=== PATIENT | male | born 1955 | race Caucasian/White ===

== ENCOUNTER → 2018-06-09 07:03 | Outpatient (CLI) | payer BC, SELFPAY ==
[2018-06-09 11:20] LABS: ALB/GLOB Ratio 1.1 RATIO (0.9-2.4); AST(SGOT) 16 U/L (15-37); Alanine Aminotransfer ALT/SGPT 23 U/L (16-61); Albumin, Serum 3.8 g/dL (3.2-5.0); Alkaline Phosphatase 51 U/L (45-117); Anion Gap 7 (5-15); BUN 16 mg/dL (7-18); BUN/Creat Ratio 16.7 RATIO (10-20); Calcium,Total 8.5 mg/dL (8.5-10.1); Chloride 106 mmol/L (98-107); Cholesterol 140 mg/dL (200); Creatinine, Serum 0.96 mg/dL (0.70-1.30); EST Glomerular Filtration Rate 84 mL/min (>60); Est Glom Filt Rate - Afr Amer 102 mL/min (>60); Globulin 3.4 g/dL (2.2-4.2); Glucose 98 mg/dL (74-106); High Density Lipoprotein 66 mg/dL; Potassium 4.3 mmol/L (3.5-5.1); Protein, Total 7.2 g/dL (6.4-8.2); Sodium Level 140 mmol/L (136-145); T4 Free Direct 0.99 ng/dL (0.76-1.46); Thyroid Stim Hormone (TSH) 4.82 uIU/mL (0.358-3.74); Triglycerides 59 mg/dL; Very Low Density Lipoprotein 12 mg/dL (5-40)
[2018-06-09 12:18] LABS: Absolute Lymphocyte Count 2.36 X10^3/ul (0.83-4.51); Absolute Neutrophil Count 1.8 X10^3/uL (2.0-7.7); Basophil# 0.07 X10^3/uL; Basophil% 1.4 % (0-1); Eosinophil# 0.42 X10^3/uL; Eosinophils% 8.2 % (0-5); Hemoglobin 13.6 g/dl (13.0-16.5); Lymphocyte # 2.36 X10^3/ul (4.0); Mean Corp Hgb Conc 33.2 g/gl (32-36); Mean Corpuscular Hgb 30.7 pg (27.0-32.0); Mean Corpuscular Volume 92.6 fL (80-94); Mean Platelet Vol. 10.6 fl (6.2-12.0); Monocyte% 9.7 % (0-10); Neutrophil # 1.77 X10^3/uL (2.7-7.7); Neutrophil % 34.5 % (47-70); Platelet Count 243 K/mm3 (150-450); RBC Distribution Width CV 12.9 % (11.6-14.6); RBC Distribution Width SD 42.7 fl (35.1-43.9); Red Blood Count 4.43 M/mm3 (4.6-6.2); White Blood Count 5.1 K/mm3 (4.4-11.0)
[2018-06-09 12:25] LABS: POSITIVE COUNT NO; POSITIVE DIFFERENTIAL NO; POSITIVE MORPHOLOGY NO
== END ==
PROVIDERS: Family Provider Family Medicine; PCP Family Medicine; Referring Provider Family Medicine; Visit Provider Family Medicine
DX: Z00.00 Encounter for general adult medical examination without abnormal findings (principal); F41.8 Other specified anxiety disorders; Z12.5 Encounter for screening for malignant neoplasm of prostate
CPT/HCPCS: 36415; 80053; 80061; 84153; 84439; 84443; 85025; G0103

== ENCOUNTER → 2018-12-05 14:26 | Outpatient (CLI) | payer BC, SELFPAY ==
[2018-12-05 14:17] VITALS: BMI 28.0
--- NOTE | 2018-12-05 14:31 | RAD_ITS ---
STUDY: X-RAY - UNILATERAL RIBS ( LEFT ) REASON FOR EXAM: Male, 63 years old. Left lateral rib pain following a fall TECHNIQUE: 3 view(s) of the ribs. COMPARISON: None. FINDINGS: There is nondisplaced fracture along the anterior lateral aspect of the left ninth rib. The visualized lung is clear and expanded. RAD/Ribs Unil 2V No CXR IMPRESSION: Nondisplaced fracture along the anterior lateral aspect of the left ninth rib. Electronically Signed: Paco Guo, at 14:53 EDT , Service support ,
== END ==
PROVIDERS: Family Provider Family Medicine; PCP Family Medicine; Referring Provider Physician Assistant Surgical; Visit Provider Physician Assistant Surgical
DX: S20.212A Contusion of left front wall of thorax, initial encounter (principal)
CPT/HCPCS: 71100

== ENCOUNTER → 2019-06-19 07:42 | Outpatient (CLI) | payer BC, SELFPAY ==
[2019-02-03 13:18] VITALS: BMI 28.0
--- NOTE | 2019-06-19 07:54 | EKG12_ITS ---
Test Reason : PREOP Blood Pressure : / mmHG Vent. Rate : 054 BPM Atrial Rate : 054 BPM P-R Int : 176 ms QRS Dur : 092 ms QT Int : 406 ms P-R-T Axes : 057 030 033 degrees QTc Int : 385 ms Sinus bradycardia Otherwise normal ECG Confirmed by ANNIE RUIZ, HILDA ([id number]), rewrite editor [place] ([id number]) on 06/22/2019 9:41:49 AM Referred By: Higinio Mccann Confirmed By:HILDA VALENCIA MD
[2019-06-19 08:11] LABS: Hematocrit 41.9 % (40-54); Hemoglobin 13.8 g/dL (13.0-16.5); Mean Corp Hgb Conc 32.9 g/dL (32-36); Mean Corpuscular Hgb 30.8 pg (27.0-32.0); Mean Corpuscular Volume 93.5 fL (80-94); Mean Platelet Vol. 10.3 fl (6.2-12.0); Platelet Count 228 K/mm3 (150-450); RBC Distribution Width CV 13.3 % (11.6-14.6); RBC Distribution Width SD 45.8 fl (35.1-43.9); Red Blood Count 4.48 M/mm3 (4.6-6.2); White Blood Count 5.6 K/mm3 (4.4-11.0)
[2019-06-19 08:39] LABS: Anion Gap 5 (5-15); BUN 21 mg/dL (7-18); BUN/Creat Ratio 21.8 RATIO (10-20); Calcium,Total 9.2 mg/dL (8.5-10.1); Chloride 109 mmol/L (98-107); Creatinine, Serum 0.96 mg/dL (0.70-1.30); EST Glomerular Filtration Rate 83 mL/min (>60); Est Glom Filt Rate - Afr Amer 101 mL/min (>60); Glucose 86 mg/dL (74-106); Potassium 4.6 mmol/L (3.5-5.1); Sodium Level 142 mmol/L (136-145)
[2019-06-19 11:11] LABS: T4 Free Direct 0.91 ng/dL (0.76-1.46); Thyroid Stim Hormone (TSH) 3.31 uIU/mL (0.358-3.74)
== END ==
PROVIDERS: Family Provider Family Medicine; PCP Family Medicine; Referring Provider Physician Assistant; Visit Provider Physician Assistant
DX: Z01.818 Encounter for other preprocedural examination (principal); Z01.810 Encounter for preprocedural cardiovascular examination; R79.89 Other specified abnormal findings of blood chemistry; F41.8 Other specified anxiety disorders
CPT/HCPCS: 36415; 80048; 84439; 84443; 85027; 93005

== ENCOUNTER → 2019-08-18 15:04 | Outpatient (CLI) | payer BC, SELFPAY ==
[2019-02-03 13:18] VITALS: BMI 28.0
== END ==
PROVIDERS: Family Provider Family Medicine; PCP Family Medicine; Referring Provider Otolaryngology Otolaryngology/Facial Plastic Surgery; Visit Provider Otolaryngology Otolaryngology/Facial Plastic Surgery
DX: J32.9 Chronic sinusitis, unspecified (principal)
CPT/HCPCS: 87070; 87077; 87186; 87205

== ENCOUNTER → 2019-12-22 13:06 | Outpatient (CLI) | payer MEDICARE, OTHER, SELFPAY ==
[2019-02-03 13:18] VITALS: BMI 28.0
--- NOTE | 2019-12-22 13:18 | MRI_ITS ---
STUDY: MRI LEFT SHOULDER REASON FOR EXAM: Male, 64 years old. Impingement syndrome left shoulder, and quot;clicking/catching and quot; left shoulder, hx prior surgery bone spur removal TECHNIQUE: Standardized fat and water weighted pulse sequences were obtained in all 3 orthogonal planes. COMPARISON: None. FINDINGS: Mild/moderate supraspinatus tendinosis. Mild infraspinatus tendinosis. Calcific peritendinitis at the supraspinatus insertion (sagittal images 15 through 18 series 6). Normal teres minor tendon. Mild subscapularis tendinosis with calcific peritendinitis (axial image 15 series). No muscle. Mild intracapsular biceps tendinosis. Biceps labral anchor intact. Lateral degeneration with tearing. Capsular ligaments intact. Normal rotator cuff interval. Moderate/severe acromioclavicular joint arthrosis with postsurgical change. Persistent narrowing of the acromiohumeral interval. No acute fracture. No dislocation. No acute bone destruction. Moderate/severe glenohumeral articular cartilage loss. Small volume glenohumeral joint effusion. Minimal subacromial and subdeltoid fluid. Normal quadrilateral space. Normal axillary space. Normal deltoid muscle. Normal trapezius muscle. MRI/Upper Ext Joint Only(Routine) IMPRESSION: No rotator cuff tendon tear Mild/moderate rotator cuff tendinosis with calcific peritendinitis Mild intracapsular long biceps tendinosis Labral degeneration/tearing Moderate/severe AC joint arthrosis with postsurgical change and persistent mild anterior impingement Moderate/severe glenohumeral joint arthrosis Small joint effusion with minimal subacromial and subdeltoid bursitis Electronically Signed: Tommie Blackburn DO at 14:07 EDT Tel , Service support ,
== END ==
PROVIDERS: PCP Family Medicine; Referring Provider Orthopaedic Surgery; Visit Provider Orthopaedic Surgery
DX: M75.42 Impingement syndrome of left shoulder (principal)
CPT/HCPCS: 73221

== ENCOUNTER → 2019-12-28 15:52 | Outpatient (CLI) | payer MEDICARE, OTHER, SELFPAY ==
[2019-02-03 13:18] VITALS: BMI 28.0
[2019-12-30 16:07] LABS: Endomysial Antibody IgA Negative (Negative)
[2019-12-30 22:31] LABS: Immunoglobulin A 142 mg/dL (61-437); t-Transglutaminase IgA <2 U/mL (0-3)
== END ==
PROVIDERS: PCP Family Medicine; Visit Provider Family Medicine
DX: K52.9 Noninfective gastroenteritis and colitis, unspecified (principal); R19.7 Diarrhea, unspecified
CPT/HCPCS: 36415; 82784; 83516; 86255; 87506

== ENCOUNTER → 2020-06-13 16:29 | Outpatient (CLI) | payer MEDICARE, OTHER, SELFPAY ==
[2019-02-03 13:18] VITALS: BMI 28.0
--- NOTE | 2020-06-13 16:31 | CT_ITS ---
HISTORY: PRIMARY OSTEOARTHRITIS, TRUE SIGHT PROTOCOL TECHNIQUE: Noncontrast bone protocol CT of the left shoulder was performed without contrast. 2D reformats were performed by the technologist. Number of images including paperwork: [phone]. A radiation dose optimization technique was used for this scan. COMPARISON: MRI 12/22/2019 FINDINGS: BONES: No acute fracture. JOINTS: No subluxation. Severe degenerative changes of the glenohumeral joint. Moderate degenerative changes of the acromioclavicular joint. SOFT TISSUES: Calcifications noted near the supraspinatus insertion and the subscapularis insertion. FOREIGN BODY: No radiopaque foreign body. CT/Extremity Upper without Contra IMPRESSION: 1. No acute findings. 2. Severe degenerative changes of the glenohumeral joint and moderate degenerative changes of the acromioclavicular joint. 3. Supraspinatus and subscapularis calcific tendinitis. Individualized dose optimization techniques were used for this CT. at 0614 Reported and signed by: Roseanna Rose MD Electronically Signed: Roseanna Rose MD at 6:13 EDT Tel , Service support ,
== END ==
PROVIDERS: PCP Family Medicine; Referring Provider Specialist; Visit Provider Specialist
DX: M19.012 Primary osteoarthritis, left shoulder (principal)
CPT/HCPCS: 73200

== ENCOUNTER → 2020-10-31 09:12 | Outpatient (CLI) | payer MEDICARE, OTHER, SELFPAY ==
[2019-02-03 13:18] VITALS: BMI 28.0
[2020-10-31 13:03] LABS: T4 Free Direct 1.03 ng/dL (0.76-1.46)
== END ==
PROVIDERS: PCP Family Medicine; Visit Provider Family Medicine
DX: R79.89 Other specified abnormal findings of blood chemistry (principal)
CPT/HCPCS: 36415; 84439; 84443

== ENCOUNTER 2021-09-11 18:18 | Outpatient (CLI) | payer MEDICARE, OTHER, SELFPAY | END 2021-09-11 23:59 | disposition short-term general hospital (02) | PROVIDERS: PCP Family Medicine; Visit Provider Physician Assistant Surgical | DX: Z20.822 Contact with and (suspected) exposure to COVID-19 (principal) | CPT/HCPCS: 87635; U0003; U0005 ==

== ENCOUNTER → 2022-04-19 | Outpatient (CLI) | payer MEDICARE, OTHER, SELFPAY ==
--- NOTE | 2022-04-19 08:04 | MRI_ITS ---
STUDY: MRI LEFT ANKLE WITHOUT CONTRAST REASON FOR EXAM: Medial and plantar heel pain for 6 months. TECHNIQUE: Standardized fat and water weighted pulse sequences were obtained in all 3 orthogonal planes. COMPARISON: None. FINDINGS: Normal subcutis adipose space. There is a small volume of fluid in the proximal posterior tibialis tendon sheath (T2 axial images 1-5). The posterior tibialis tendon is morphologically normal. Normal flexor digitorum longus tendon. Normal flexor hallucis longus tendon. Normal peroneus longus and brevis tendons. Normal tibialis anterior tendon. Normal extensor hallucis longus tendon. Normal extensor digitorum longus tendons. Normal Achilles tendon and teno-osseous insertion. There is mild interstitial edema in the central cord of the plantar fascia (T2 coronal image 23; inversion recovery sagittal images 8, 9). There is very mild reactive bone edema in the posterior tuberosity of the calcaneus at the origin of the plantar fascia (inversion recovery sagittal images 10-13). Normal intrinsic muscles of the rearfoot. Normal distal tibiofibular syndesmotic ligamentous complex. There is an ossicle at the anterior aspect of the lateral malleolus from remote injury and mild scarring of the anterior talofibular ligament (T2 axial image 14). Normal calcaneofibular and posterior talofibular ligaments. There is mild cystic change of the lateral malleolus (T2 coronal image 17). There is replacement of fat in the sinus tarsi (T1 sagittal images 13-16). Normal deltoid ligamentous complexes. Normal plantar calcaneonavicular (spring) ligament. Normal tibiotalar articulation. Normal talar dome. Normal subtalar articulations. Normal talonavicular articulation. Normal calcaneocuboid articulation. Normal navicular-cuneiform articulations. MRI/Lower Ext Joint Only (Routine) IMPRESSION: Mild posterior tibialis tenosynovitis. Mild plantar fasciitis with very mild reactive bone edema in the posterior tuberosity of the calcaneus. Mild scarring of the anterior talofibular ligament. 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 Electronically Signed: Roc Cassidy MD at 9:33 EDT ,
== END | disposition home or self-care (01) ==
PROVIDERS: PCP Family Medicine; Referring Provider Podiatrist; Visit Provider Podiatrist
DX: M72.2 Plantar fascial fibromatosis (principal)
CPT/HCPCS: 73721

== ENCOUNTER 2022-06-08 16:33 | Emergency (ER) | payer MEDICARE, OTHER, SELFPAY ==
[2022-06-08 16:34] VITALS: BP 175/101; PULSE 63; RESP 18; TEMP 36.6; O2SAT 98; BMI 29.5
--- NOTE | 2022-06-08 16:46 | EKG12_ITS ---
Test Reason : CP Blood Pressure : / mmHG Vent. Rate : 051 BPM Atrial Rate : 051 BPM P-R Int : 158 ms QRS Dur : 108 ms QT Int : 440 ms P-R-T Axes : 040 -13 -02 degrees QTc Int : 405 ms Sinus bradycardia Moderate voltage criteria for LVH, may be normal variant ( R in aVL , [place] product ) Borderline ECG Confirmed by ANNIE RUIZ, HILDA ([id number]), editorial director [place] ([id number]) on 06/12/2022 9:42:35 AM Referred By: SAHARA Confirmed By:HILDA VALENCIA MD
--- NOTE | 2022-06-08 16:47 | CT_ITS ---
STUDY: CT ABDOMEN AND PELVIS WITH CONTRAST REASON FOR EXAM: Male, 67 years old. Right-sided abdominal pain. RADIATION DOSAGE (If Supplied By Facility): CTDIvol = ( 19.56 ) mGy, DLP = ( 1042.06 ) mGycm TECHNIQUE: Transaxial images were obtained from the dome of the diaphragm to the symphysis pubis without oral contrast. IV 100mL Isovue-370 was administered. Sagittal and coronal images were reconstructed. Individualized dose optimization techniques were used for this CT. COMPARISON: None. FINDINGS: The visualized lung bases are unremarkable. The visualized portions of the heart are within normal limits. Normal liver. Normal gallbladder and extrahepatic biliary system. Normal spleen. Normal pancreas. Normal bilateral adrenal glands. There is a 6.3 x 5.4 x 4.8 cm exophytic cyst off the upper pole of the otherwise normal right kidney. Normal left kidney. Normal ureters. Normal visualized stomach. Normal small intestine. There is descending and sigmoid diverticuli without acute inflammatory change. The proximal colon is unremarkable. The appendix is visualized and appears normal. Normal abdominal aorta. Normal inferior vena cava. Normal retroperitoneum. Poorly distended urinary bladder without filling defect or mass. The prostate is enlarged and invaginates into the bladder floor. No pelvic lymphadenopathy. No free air or free fluid is seen within the peritoneal cavity. Normal abdominal wall. There are diffuse degenerative changes of the visualized lumbar spine. CT/Abdomen/Pelvis W IV Cont ONLY IMPRESSION: 1. Large exophytic simple cyst off the right kidney. There is no other renal, ureteral or urinary bladder abnormality. 2. Diverticulosis without acute inflammatory change. 3. Enlarged prostate. 4. Degenerative changes of the lumbar spine. 5. No evidence for acute intra-abdominal or pelvic process. Electronically Signed: Johny Rahman DO at 17:45 EDT Reading Location ID and State: [address] [place] [address] Tel [phone], Service support ,
--- NOTE | 2022-06-08 16:48 | EDS_ITS ---
HPI History of Present Illness Chief Complaint: Chest Pain Informant: patient Onset/Context/Timing Onset: Today Activity at onset: gradual and onset Timing: Continuous (Not colicky) Quality: Positive for Aching Location: Right Chest (Started in right upper quadrant, now also in right lower chest and radiating into the right periscapular area) Current Severity: Moderate Maximum Severity: Moderate Worsened By: Breathing Relieved By: Nothing Associated Symptoms: Positive for Nausea and Dyspnea (Due to hurting when he takes of breath); Negative for Vomiting, Diaphoresis, Cough, Fever, Lightheadedness or Palpitations Narrative Narrative: Patient states he started out this morning by having pain in his right upper quadrant, he chalked it up to eating bad [place] food last night and as the day went on the pain got worse and went up into his right chest and shoulder blade area. He has been nauseated off and on. He has not felt like eating so he has had nothing to eat today, and the pain has worsened. He denies any vomiting, fever, jaundice, confusion, diarrhea, urinary symptoms. [facility] Medical History (Updated 06/08/22 @ 20:[address] Andrea Mckeon MD) Arthritis Home Medications hydrocodone-acetaminophen 5-325mg 5mg-325mg 1 tab PO Q6H PRN PRN Pain 3 days #12 TABLETS 06/08/22 [Rx Last Taken Unknown] Allergy/AdvReac Type Severity Reaction Status Date / Time No Known Allergies Allergy Verified 06/08/22 16:37 Surgical History H/O shoulder replacement Social History Smoking Status: Never smoker ROS ROS ED Constitutional Constitutional ED: Denies chills or fever(s) Eyes Eyes: Denies blurry vision, change in vision or diplopia ENT ENT ED: Denies rhinorrhea or sore throat Cardiovascular Cardiovascular: Reports as per HPI and chest pain; Denies orthopnea or palpitations Respiratory/Chest Respiratory/Chest: Reports dyspnea; Denies cough, dyspnea on exertion, orthopnea or sputum Gastrointestinal Gastrointestinal: Reports abdominal pain and nausea; Denies diarrhea, melena or vomiting Genitourinary Genitourinary ED: Denies dysuria or hematuria Musculoskeletal Musculoskeletal: Reports as per HPI and back pain; Denies extremity pain or neck pain Integumentary Denies abscess or rash Neurologic Neurologic: Denies headache(s), paresthesias or weakness Psychiatric Psychiatric: Denies anxiety or suicidal thoughts EXAM Physical Exam Const Vital Signs: 06/08/22 16:34 06/08/22 16:41 06/08/22 17:40 Temperature 97.8 F Temperature Source Temporal Pulse Rate 63 62 Respiratory Rate 18 20 H Respiratory Effort Normal Blood Pressure 175/101 H 166/75 H Blood Pressure Mean 125 105 Pulse Ox 98 98 Oxygen Delivery Method Room Air 06/08/22 19:20 Temperature Temperature Source Pulse Rate 48 L Respiratory Rate 17 Respiratory Effort Blood Pressure 181/91 H Blood Pressure Mean 121 Pulse Ox 97 Oxygen Delivery Method Room Air Positive well nourished and well developed General Appearance ED: well developed and NAD HEENT Reports moist mucous membranes normocephalic and atraumatic Eyes PERRL and EOMs intact bilaterally Neck full ROM and supple Resp normal respiratory effort and clear to auscultation bilaterally Cardio regular rate, regular rhythm and no murmurs Rate: Negative for tachycardic GI non-distended GI Narrative: Tender right upper quadrant and right lower quadrant including McBurney's point. Positive psoas, negative obturator and Rovsing signs. Negative Luke's. No palpable or pulsatile mass. Auscultation: normoactive bowel sounds Palpation: soft Back/Spine no CVA tenderness Back/Spine Narrative: Nontender throughout the right periscapular area no rash. General Back: other FROM Extremity normal to inspection General Extremety ED: Negative for edema, pulses abnormal or tenderness General Extremity: Negative for edema or pulses abnormal Neuro oriented x3, CN's II-XII intact bilaterally, no sensory deficits noted and gait normal Sensorium / Orientation: awake and alert Motor Exam: strength 5/5 throughout Psych mental status grossly normal Skin no rashes or lesions noted and no wounds MDM MDM MDM Narrative Medical decision making narrative: Patient seems to have right-sided abdominal pain that is radiating into his right lower chest and periscapular area. I performed a CT scan in addition to blood work and urinalysis initially ordered to rule out appendicitis, it was negative for any acute except for a renal cyst which should not be responsible for any of his symptoms under most normal circumstances. He did not know about the cyst already. Since his CT was negative I sent him for an ultrasound of the gallbladder/right upper quadrant, other than the cyst it was unremarkable showing no stones or signs of acute cholecystitis. Also performed a two-view chest x-ray which on my interpretation is unremarkable, radiology was in agreement. His EKG and troponin are normal. I do not think this is a pulmonary embolus since he has a pulse initially 63 and now 48 without being on any AV akanksha blockers. I treated his pain and nausea which improved. His liver enzymes and lipase are all normal, urinalysis is unremarkable as well. I do not have a great answer for his right upper quadrant pain, although in the differential is pleurisy although this should not be reproducible with palpation in his right abdomen, and biliary pain. He does not have stones which would make this more likely, but a HIDA scan would rule out biliary functional problems. That is not available tonight Saturday night nor over the weekend. He does not have a leukocytosis, nor does he have any hypoxemia or tachycardia. His blood pressure is up but after treated his pain it is down to 163 systolic, I do not have an obvious explanation for his blood pressure elevation but it is not emergently high so I do not think he needs to be admitted for that nor this pain since were not able to get a HIDA scan till after the weekend. I discussed with Dr. Stanton, he said he would follow-up with the patient in the office after the weekend for further evaluation and help facilitate a HIDA if he is still having issues. In the meantime I will prescribe him [place] and advised a bland diet and hydration. They are comfortable with this plan, and are welcome to return to the ER for any worsening or new symptoms over the weekend. I also considered intraluminal intestinal complaints/problems such as nonbleeding duodenal ulcer, and offered empiric PPI prescription but the patient declines and does not want to do that. Lab Data Attestation: I reviewed the patient's lab results. Labs: Laboratory Results - last 24 hr 06/08/22 06/08/22 06/08/22 16:52 16:52 17:25 WBC 7.6 RBC 4.59 L Hgb 13.9 Hct 41.7 MCV 90.8 MCH 30.3 MCHC 33.3 RDW Std Deviation 43.7 RDW Coeff of Precious 13.1 Plt Count 245 MPV 10.1 Immature Gran % (Auto) 0.300 Neut % (Auto) 75.9 H Lymph % (Auto) 17.7 L [place] % (Auto) 5.6 Eos % (Auto) 0.1 Baso % (Auto) 0.4 Absolute Neuts (auto) 5.7 Absolute Lymphs (auto) 1.34 Nucleated RBC % 0 Sodium 136 Potassium 3.8 Chloride 104 Carbon Dioxide 24.0 Anion Gap 8 BUN 17 Creatinine 0.97 Estim Creat Clear Calc 73.90 Est GFR (MDRD) Af Amer 99 Est GFR (MDRD) Non-Af 82 BUN/Creatinine Ratio 17.5 Glucose 98 Calcium 9.5 Total Bilirubin 0.80 AST 16 ALT 23 Alkaline Phosphatase 52 Troponin I High Sens 7 Total Protein 7.3 Albumin 3.9 Globulin 3.4 Albumin/Globulin Ratio 1.1 Lipase 72 L Urine Color Yellow Urine Clarity Clear Urine pH 6.0 Ur Specific [place] 1.020 Urine Protein Negative Urine Glucose (UA) Normal Urine Ketones 50 H Urine Occult Blood 10 H Urine Nitrite Negative Urine Bilirubin Negative Urine Urobilinogen Normal Ur Leukocyte Esterase 25 H Urine RBC 0 SEEN Urine WBC 0 SEEN Ur Squamous Epith Cells 0 SEEN Urine Bacteria 0 SEEN Urine Mucus 0 SEEN Radiography Diagnostic Testing: Clinical Impression(s) from Imaging Studies Abdomen/Pelvis CT 06/08/22 16:47 IMPRESSION: 1. Large exophytic simple cyst off the right kidney. There is no other renal, ureteral or urinary bladder abnormality. 2. Diverticulosis without acute inflammatory change. 3. Enlarged prostate. 4. Degenerative changes of the lumbar spine. 5. No evidence for acute intra-abdominal or pelvic process. Electronically Signed: Johny Rahman DO at 17:45 EDT [facility] Tel [phone], Service support , Gallbladder Ultrasound 06/08/22 17:59 IMPRESSION: 1. BOSNIAK type II right renal cyst. 2. Otherwise normal right upper quadrant abdominal ultrasound Electronically Signed: Johny Rahman DO at 18:40 EDT Reading Location ID and State: [facility] / [place] Tel [phone], Service support , Chest X-Ray 06/08/22 18:20 IMPRESSION: Degenerative changes, as described above. No demonstrated acute cardiopulmonary process. Electronically Signed: Johny Rahman DO at 18:35 EDT Reading Location ID and State: [address] [place] [address] Tel [phone], Service support , Rhythm Strip Rhythm Strip: Sinus Rhythm Rate: 60 Ectopy: PVC(s) EKG Initial EKG: Attestation: I personally reviewed and interpreted this EKG as follows: Interpretation: Sinus Rhythm and No Acute Injury Pattern Comments: Borderline LVH Prior EKG tracings: available for review Prior: Unchanged (QRS complex taller in aVL than before but same morphology/axis) Discharge Plan Triage Chief Complaint: Chest Pain ED Provider: Andrea Mckeon Dx/Rx/DC Orders Clinical Impression: Right sided abdominal pain, Acute right-sided thoracic back pain, Episode of hypertension Instructions: Abdominal Pain, Hypertension Dc, ED Diet, [place] (Adult) Prescriptions: New hydrocodone-acetaminophen [hydrocodone-acetaminophen] 1 TABLET tablet 1 tab PO Q6H PRN PRN (Reason: Pain) 3 Days Qty: 12 0RF Primary Care Provider: Darren Bridges Referrals: Javed Stanton MD [Med Staff - Active Staff] - As soon as possible (Call office for appointment date/time this coming week) Darren Bridges MD [Primary Care Provider] - Activity Restrictions/Additional Instructions: If he have new symptoms or get significantly worse despite the pain medication, please return to the ER over the weekend. Disposition Disposition: Home, Self Care
[2022-06-08] MEDS: 0.9% Normal Saline 1,000 ML 1000 ML IV (16:57)
[2022-06-08] MEDS: Ondansetron 4 MG/2 ML Vial IV (16:57)
[2022-06-08 16:58] LABS: Absolute Lymphocyte Count 1.34 X10^3/uL (0.83-4.51); Absolute Neutrophil Count 5.7 X10^3/uL (2.0-7.7); Basophil# 0.03 X10^3/uL; Basophil% 0.4 % (0-1); Eosinophil# 0.01 X10^3/uL; Eosinophils% 0.1 % (0-5); Hematocrit 41.7 % (40-54); Hemoglobin 13.9 g/dL (13.0-16.5); Lymphocyte # 1.34 X10^3/ul (0.83-4.51); Lymphocyte % 17.7 % (19-41); Mean Corp Hgb Conc 33.3 g/dL (32-36); Mean Corpuscular Hgb 30.3 pg (27.0-32.0); Mean Corpuscular Volume 90.8 fL (80-94); Mean Platelet Vol. 10.1 fl (6.2-12.0); Monocyte# 0.42 X10^3/uL; Monocyte% 5.6 % (0-10); NRBC Flagged by Analyzer 0 % (0-5); Neutrophil # 5.74 X10^3/uL (2.7-7.7); Neutrophil % 75.9 % (47-70); Platelet Count 245 K/mm3 (150-450); RBC Distribution Width CV 13.1 % (11.6-14.6); RBC Distribution Width SD 43.7 fl (35.1-43.9); Red Blood Count 4.59 M/mm3 (4.6-6.2); White Blood Count 7.6 K/mm3 (4.4-11.0)
[2022-06-08] MEDS: Ketorolac 15 MG/ML Vial IV (17:01)
[2022-06-08] MEDS: Morphine 4 MG/ML Syringe IV ×2 (17:04→20:15)
[2022-06-08 17:20] LABS: ALB/GLOB Ratio 1.1 RATIO (0.9-2.4); AST(SGOT) 16 U/L (15-37); Alanine Aminotransfer ALT/SGPT 23 U/L (16-61); Albumin, Serum 3.9 g/dL (3.2-5.0); Alkaline Phosphatase 52 U/L (45-117); Anion Gap 8 (5-15); BUN 17 mg/dL (7-18); BUN/Creat Ratio 17.5 RATIO (10-20); Calcium,Total 9.5 mg/dL (8.5-10.1); Chloride 104 mmol/L (98-107); Creatinine, Serum 0.97 mg/dL (0.70-1.30); EST Glomerular Filtration Rate 82 mL/min (>60); Est Glom Filt Rate - Afr Amer 99 mL/min (>60); Globulin 3.4 g/dL (2.2-4.2); Glucose 98 mg/dL (74-106); Lipase 72 U/L (73-393); Potassium 3.8 mmol/L (3.5-5.1); Protein, Total 7.3 g/dL (6.4-8.2); Sodium Level 136 mmol/L (136-145); Troponin-I HS 7 pg/mL (3.0-78.0)
[2022-06-08 17:31] LABS: Bacteria 0 SEEN /hpf (None Seen); Mucous, Urine 0 SEEN /hpf (<or=2+); Red Blood Cells-Urine 0 SEEN /hpf (0-5); Squamous Epithelial Cells - UA 0 SEEN /hpf (0-5); White Blood Cells 0 SEEN /hpf (0-5)
[2022-06-08 17:33] LABS: Color, Urine Yellow (Yellow); Glucose, Dipstick Normal (Normal); Ketone-Dipstick 50 mg/dl (Negative); Leukocyte Esterase-Dipstick 25 /ul (Negative); Nitrite-Dipstick Negative (Negative); Occult Blood-Urine 10 /ul (Negative); Protein-Dipstick Negative (Negative); Urine Bilirubin Dipstick Negative (Negative); Urine Clarity Clear (Clear); Urine Urobilinogen Normal (Normal)
[2022-06-08 17:40] VITALS: BP 166/75; PULSE 62; RESP 20; O2SAT 98
--- NOTE | 2022-06-08 17:59 | US_ITS ---
STUDY: ABDOMINAL ULTRASOUND - RIGHT UPPER QUADRANT REASON FOR VISIT: Male, 67 years old . Right upper quadrant pain. TECHNIQUE: Ultrasound evaluation of the right upper quadrant was performed with real-time and static pimentel-scale imaging. TECHNICAL QUALITY: Examination limited by bowel gas. COMPARISON: CT of the abdomen and pelvis, 06/08/2022. FINDINGS: Liver: The liver measures 14.4 cm. There is normal echogenicity of the liver. The bile ducts are within normal limits. There is hepatic color flow. The direction of portal flow is hepatopetal. There is no demonstrated mass lesion. Gallbladder: Normal distended gallbladder. The gallbladder wall measures 2 mm. There is a negative sonographic Luke''s sign. There is no pericholecystic fluid. There are no gallstones. Common Bile Duct (C.B.D.): The common bile duct measures 3 mm. Pancreas: Normal size of the head and body of the pancreas. The tail is obscured by bowel gas. There is normal echogenicity of the pancreas. There is no demonstrated pancreatic mass or cyst. Right Kidney: Normal size of the right kidney. The right kidney measures 11.7 cm. Normal renal cortex. The right cortex measures 2.2 cm. There is a 4.7 x 5.9 x 4.4 cm cyst with thin internal septation. There is no right hydronephrosis. US/Gallbladder IMPRESSION: 1. BOSNIAK type II right renal cyst. 2. Otherwise normal right upper quadrant abdominal ultrasound Electronically Signed: Johny Rahman DO at 18:40 EDT ,
--- NOTE | 2022-06-08 18:20 | RAD_ITS ---
STUDY: X-RAY CHEST REASON FOR EXAM: Male, 67 years old. Chest pain. TECHNIQUE: PA and lateral views of the chest. COMPARISON: None. FINDINGS: The lungs are clear and expanded. There is no demonstrated pleural abnormality. Normal size heart. Normal mediastinum and kiera. Normal visualized pulmonary arteries. Normal visualized aortic arch and descending thoracic aorta. There are diffuse degenerative changes of the visualized thoracic spine. Left shoulder replacement. There is no demonstrated abnormality of the visualized soft tissue structures of the upper abdomen. RAD/Chest PA and Lateral IMPRESSION: Degenerative changes, as described above. No demonstrated acute cardiopulmonary process. Electronically Signed: Johny Rahman DO at 18:35 EDT ,
[2022-06-08 19:20] VITALS: BP 181/91; PULSE 48; RESP 17; O2SAT 97
[2022-06-08 20:11] VITALS: BP 167/89; PULSE 57; PULSE 59; RESP 15; RESP 23; O2SAT 95; O2SAT 96
[2022-06-08] MEDS: Dicyclomine 10 MG Capsule 20 MG PO (20:20)
== END 2022-06-08 20:23 | disposition home or self-care (01) ==
PROVIDERS: Emergency Provider Emergency Medicine; PCP Family Medicine; Visit Provider Emergency Medicine
DX: R10.9 Unspecified abdominal pain (principal); K82.8 Other specified diseases of gallbladder; R06.00 Dyspnea, unspecified; M25.519 Pain in unspecified shoulder; M54.6 Pain in thoracic spine; I10 Essential (primary) hypertension; R11.0 Nausea
CPT/HCPCS: 71046; 74177; 76705; 80053; 81001; 83690; 84484; 85025; 93005; 99285; J7030; Q9967; A4216; J2405

== ENCOUNTER → 2022-07-10 | Outpatient (CLI) | payer MEDICARE, OTHER, SELFPAY ==
--- NOTE | 2022-07-10 10:03 | NM_ITS ---
CLINICAL: 67-year-old male with history of clinical biliary dyskinesia. RADIONUCLIDE HEPATOBILIARY SCINTIGRAPHY COMPARISON: Gallbladder ultrasound report 06/08/2022 FINDINGS: Following the intravenous administration of 5.4 mCi of 99m Tc Mebrofenin, hepatobiliary images reveal:. 1. Relatively prompt and homogeneous radiopharmaceutical concentration is noted by a normal sized liver. No parenchymal defects are identified. 2. Gallbladder activity is identified at 15 minutes post radiopharmaceutical administration. 3. Small intestinal tract is observed at 30 minutes following tracer injection. 4. Washout of the radiopharmaceutical by the hepatic parenchyma appears qualitatively normal. Cholecystokinin (0.02 ug/kg) was administered intravenously over a 30-minute period. The post CCK gallbladder ejection fraction calculated at 20 minutes following Cholecystokinin administration was noted to be 84.0 % (normal greater than 35%). During 30 minutes of post CCK imaging, there is scintigraphic evidence of refilling of the gallbladder. NM/Hepatobilliary Img w/Pharm Int IMPRESSION: 1. A gallbladder ejection fraction calculated to be greater than 35% following the administration of Cholecystokinin makes the probability of functional hepatobiliary disease (gallbladder dyskinesia) and/or organic hepatobiliary disease (chronic acalculous cholecystitis and/or cystic duct syndrome) to be low. (Serena Pace et al, Journal of Nuclear Medicine 32:1695, 1991). 2. A normal gallbladder ejection fraction with refilling of the gallbladder following CCK administration may represent the presence of Sphincter of Oddi dysfunction. Correlation with Sphincter of Oddi manometry may be of benefit. (Esthela and Esthela, J Nucl Med 38:1824, 1997). Electronically Signed: Jose Quinones, at 21:28 EST ,
== END | disposition home or self-care (01) ==
LOC: NM 10:02
PROVIDERS: PCP Family Medicine; Referring Provider Physician Assistant; Visit Provider Physician Assistant
DX: K82.8 Other specified diseases of gallbladder (principal)
CPT/HCPCS: 78227; A9537; J2805

== ENCOUNTER 2022-08-02 11:52 | Day surgery (SDC) | payer MEDICARE, OTHER, SELFPAY ==
[2022-08-02] VITALS (7 sets, daily range): BP systolic 119–154; BP diastolic 81–92; PULSE 60–90; RESP 16–20; TEMP 36.1–36.8; O2SAT 94–100; BMI 28.0
[2022-08-02] MEDS: Lactated Ringers 1,000 ML 15 ML IV (12:20)
--- NOTE | 2022-08-02 12:51 | HP.PCM_ITS ---
History and Physical Date of Admission: 08/02/22 Date of Service:? 06/12/22 MR#: [id number] Acct: [id number] Name:TYLER NIELSEN Rep #: [id number] : 1955 ? ? Provider: Dr. Javed Stanton MD Age/Sex:? 67/M ? ? Location: [facility] Status: Signed Intake Vital Signs ? 06/08/2216:34 06/12/2209:57 HeightB 5 ft 9 in 5 ft 10 in Weight: ? 196 lb BMI ? 28.1 BP ? 138/82 H Blood Pressure Location ? Rt brachial Position ? Sitting Respiration ? 18 Pulse ? 77 Pulse Source ? Monitor Temp ? 97.4 F L Temp Source ? Temporal Pulse Oximetry (%) ? 98 Oxygen Delivery Method ? room air Intake Visit Reasons:?POSSIBLE GALLBLADDER - ED 06/08 Chief Complaint: Gallbladder -? ED 06/08 Varnish Cooker Required: No Is patient in pain?: No Allergies No Known Allergies Allergy (Verified 06/12/22 10:01) Medications acetaminophen 325 mg capsule (Tylenol) 325 mg PO Q6H PRN 06/12/22 [History Confirmed 06/12/22] melatonin 5 mg capsule 5 mg PO QHS PRN 06/12/22 [History Confirmed 06/12/22] PFSH Medical History?(Updated 06/12/22 @ 21:[address] Javed Stanton MD) Arthritis Surgical History?(Updated 06/12/22 @ 09:56 by Jennifer Saturday) H/O shoulder replacement History of Achilles tendon repair History of hernia repair History of microdiscectomy Family History?(Updated 06/12/22 @ 09:56 by Jennifer Saturday) Sister Breast cancer Thyroid disorderMother Heart disease Hypertension Thyroid disorder Social History?(Updated 06/12/22 @ 09:57 by Jennifer Saturday) Smoking Status:? Never smoker alcohol intake:? current details:? 1 beer per day substance use type:? does not use HPI HPI HPI: Patient is a 67-year-old male who presents for right lower chest/right upper quadrant abdominal pain.? They are referred for surgical consultation from Dr. Ramírez of emergency medicine. ? Pain is described as being like somebody kicked me under the rib cage.? Because of this patient states that he had some pain with breathing.? He described minimal associated nausea.? He reports that his evening dinner before this pain hit consisted of [place] food that was not very high in fat.? He reported some brackish liquid with 3 fairly normal bowel movements.? He has been consuming a mild diet so as to minimize his chances for recurrence and had a normal bowel movement last evening while consuming this diet.? He denies any prior history of similar pain.? He complains that he still has a milder version of this right upper quadrant pain currently.? At this time he also denies any nausea.? He has not had fever during the course of the symptoms.? He reports a mild to moderate headache last evening with it.? He denies any prior history of reflux or heartburn.? He has not had a colonoscopy.? There is no family history of colon cancer or IBD, but mother had diverticulitis.? He has no abdominal surgical history. Previous work-up has included: CBC, CMP, CT of the abdomen pelvis as well as right upper quadrant ultrasound.? CBC did not demonstrate a white count and CMP was free of abnormalities.? CT imaging demonstrated a large exophytic simple cyst of the right kidney, diverticulosis without inflammatory change, and enlarged prostate , but no evidence of acute intra-abdominal or pelvic process.? Right upper quadrant ultrasound showed a normal distended gallbladder with a gallbladder wall that measured 2 mm.? No pericholecystic fluid was seen.? No gallstones were seen.? The common bile duct measured 3 mm ROS General General: No weight change, appetite, fatigue, colon cancer, breast cancer or weakness HEENT HEENT: No difficulty swallowing, eye injury, eye surgery, swollen glands or hoarseness Endo Endocrine: No thyroid disease, diabetes mellitus, thyroid cancer, Hair loss, heat intolerance or cold intolerance Skin Skin: No rash or changing moles Musc Musculoskeletal: Yes back problems and arthritis; No rheumatoid arthritis, gout or joint pain Cardio Cardiovascular: No murmur, pacemaker, heart disease, atrial fibrillation, high blood pressure, heart attack, heart stent, palpitations, shortness of breat with exertion or chest pain Psych Psychiatric: No depression, anxiety or hearing voices Resp Respiratory: No shortness of breath, No sleep apnea, No cough, No COPD, No asthma, No emphysema and No wheezing Gastro Gastrointestinal: Yes abdominal pain, No nausea or vomiting, No diarrhea, No constipation, No blood in stool, Yes acid reflux, No hemorrhoids, No ulcers, Yes gallbladder problem and No black,tarry stools Edson Hematologic: No blood thinners, No blood disorders, No bleeding, No anemia and No blood clots Neuro Neurologic: No system reviewed and no additional complaints, except as documented, No as per HPI, No abnormal gait, No abnormal hearing, No abnormal movements, No abnormal speech, No behavioral changes, No burning sensations, No confusion, No convulsions, No disequilibrium, No dizziness, No localized weakness, No frequent falls, No headache(s), No lack of coordination, No loss of vision, No memory loss, No numbness, No other visual disturbances, No radicular pain, No restless legs, No sensory deficit, No syncope, No tingling, No tremor(s), No weakness and No other Exam Const General: cooperative and no acute distress Orientation: alert, awake and oriented x3 Other: Mildly uncomfortable Resp Effort & Inspection: normal respiratory effort Cardio Rate: regular rate Rhythm: regular rhythm Heart Sounds: S1 normal and S2 normal GI Other: Nondistended, no scars, soft, mildly tender to palpation in the right upper quadrant and left lower quadrant.? Negative Luke sign. Assessment and Plan Assessment and Plan (1) Right sided abdominal pain: ?Status:?Acute ?Comment: Patient with right-sided abdominal pain radiating to his back beginning earlier this week.? Minimal associated symptoms.? Patient with no recent trauma to this area.? Work-up to date is relatively unremarkable for acute findings.? Patient does have an exophytic cyst showing on his right kidney and this vicinity.? Still given the pains onset in a postprandial timing, I believe we should exclude all biliary causes?this should include biliary dyskinesia.? Therefore, I have recommended we proceed with HIDA imaging.? I showed patient his original imaging and described the diagnosis of biliary dyskinesia to him and his .? They expressed understanding of this information and wished to proceed with my recommendation.? We have discussed that if this imaging ends up negative we may consider performing a esophagogastroduodenoscopy to rule out peptic ulcer. ?Plan: ? HIDA imaging ? Recommend bland diet as we await scheduling of HIDA scan ? We will follow-up with patient once this imaging is complete I have examined the patient the following changes are noted: He denies any further recurrence of his upper abdominal pain and confirms that he has completed his prep successfully. He states that his output is now rob- colored but there is no solid material to it. Therefore we will plan to proceed to endoscopy suite for diagnostic EGD and screening colonoscopy as discussed above.
--- NOTE | 2022-08-02 13:00 | EGD_PTH ---
PATIENT: TYLER AYALA LOC: EN U#:[id number] AGE/SX: 67/M ROOM: RE08/02/[address]: Dr. Javed Stanton MD : 1955 BED: DIS: 08/02/2022 SPEC #: [id number] RECD: 08/02/22 15:09 STATUS: VINICIUS TRUNG #: [id number] EUSEBIA: 08/02/22 13:[address]: Javed Stanton DEPT: SURGICAL PATHOLOGY RECD BY: Yessy Garcia ENTERED: 08/03/22 13:03 SP TYPE: EGD BIOPSY OT DR: Dr. Darren Bridges MD Tissues: A - Ampulla of Vater B - Gastric mucous membrane C - Gastric mucous membrane D - Esophagus, NOS E - Esophagus, NOS F - COLON BIOPSY G - Sigmoid colon biopsy Procedures: Special Stain Group II Surgery Specimen Level IV Alcian Blue/PAS (control) HEADER OPERATION: Colonoscopy with biopsy and polypectomy, EGD with biopsy PRE-OP DIAGNOSIS: Right-sided abdominal pain TISSUE SUBMITTED: A ? Ampulla biopsy, B ? Antrum biopsy for H. pylori and path, C ? Gastric cardia polyp biopsy, D ? Gastroesophageal junction biopsy, E ? Mid esophagus biopsy, F ? Polyp biopsy at 30 cm, G ? Sigmoid polyp biopsy at 25 cm MICROSCOPIC DIAGNOSIS A. Ampulla, biopsy: Fragments of small bowel with minimal nonspecific chronic inflammation and focal adenomatous change. B. Gastric antrum, biopsy: Chronic gastritis. See comment. C. Gastric cardia polyp, biopsy: Fragments of benign superficial gastric mucosa. D. Gastroesophageal junction, biopsy: Mild chronic inflammation. Focal goblet cell metaplasia. No evidence of dysplasia. See comment. E. Mid esophagus, biopsy: No pathologic change. F. Polyp at 30 cm, biopsy: Fragments of hyperplastic polyp. G. Sigmoid colon polyp at 25 cm, biopsy: Fragments of hyperplastic polyp. AM:chao 08/06/2022 COMMENT B. The results of immunohistochemistry for Helicobacter pylori will be reported separately ([id number]). D. Immunohistochemistry ([id number]) for P53 and Ki-67 will be performed and results will be reported separately. Alcian blue/PAS stain with matched control supports the above diagnosis. MICROSCOPIC DESCRIPTION Slides are reviewed. GROSS DESCRIPTION A - Received in fixative is one container labeled with the patient's name and designated ampulla. The specimen consists of three irregular fragments of light hoffmann soft tissue that in aggregate measure 0.7 x 0.5 x 0.1 cm. The specimen is totally submitted in one cassette. B - Received in fixative is one container labeled with the patient's name and designated antrum biopsy. The specimen consists of one irregular fragment of light hoffmann soft tissue that measures 0.6 x 0.2 x 0.1 cm. The specimen is totally submitted in one cassette. C - Received in fixative is one container labeled with the patient's name and designated gastric cardia polyp biopsy. The specimen consists of one irregular fragment of light hoffmann soft tissue that measures 0.5 x 0.3 x 0.1 cm. The specimen is totally submitted in one cassette. D - Received in fixative is one container labeled with the patient's name and designated GE junction biopsy. The specimen consists of multiple irregular fragments of light hoffmann soft tissue that in aggregate measure 1 x 0.3 x 0.1 cm. The specimen is totally submitted in one cassette. E - Received in fixative is one container labeled with the patient's name and designated mid esophagus biopsy. The specimen consists of one irregular fragment of light hoffmann soft tissue that measures 0.3 x 0.3 x 0.1 cm. The specimen is totally submitted in one cassette. F - Received in fixative is one container labeled with the patient's name and designated polyp at 30 cm. The specimen consists of multiple irregular fragments of light hoffmann soft tissue that in aggregate measure 0.7 x 0.7 x 0.1 cm. The specimen is totally submitted in one cassette. G - Received in fixative is one container labeled with the patient's name and designated sigmoid polyp at 25 cm. The specimen consists of multiple irregular fragments of light hoffmann soft tissue that in aggregate measure 1 x 0.3 x 0.1 cm. The specimen is totally submitted in one cassette. / AM:chao 08/03/2022 TC:3 CPT: 92696 x7, 05389
--- NOTE | 2022-08-02 13:00 | IMM_PTH ---
PATIENT: TYLER AYALA LOC: EN U#:[id number] AGE/SX: 67/M ROOM: RE08/02/[address]: Dr. Javed Stanton MD : 1955 BED: DIS: 08/02/2022 SPEC #: [id number] RECD: 08/03/22 14:49 STATUS: VINICIUS REQ #: [id number] EUSEBIA: 08/02/22 13:[address]: Javed Stanton DEPT: IMMUNOHISTOCHEMISTRY RECD BY: Sallie Kulkarni ENTERED: 08/03/22 14:50 SP TYPE: IMMUNO OTHR DR: Dr. Darren Bridges MD Tissues: B - Stomach, NOS D - Gastric mucous membrane Procedures: H Pylori (initial) P53 (initial) KI-67 (add) PHYSICIAN & INSTITUTION [place] [id number] SPECIMEN INFORMATION: Tissue Source: B ? Antrum, D ? Gastroesophageal junction biopsy Clinical Info: Right-sided abdominal pain Specimen Number: [id number] B & D CPT code: 79853 x2, 24669 METHODOLOGY: Deparaffinized sections of prefer/formalin-fixed tissue or PAP/DQ stained slides are incubated with monoclonal/polyclonal antibodies/oligonucleotide probes. Localization is made via biotin free immunoperoxidase method. Appropriate controls are performed and reacted as expected. Results on target cell population are indicated in the following table: RESULTS: ANTIBODY / CLONE RESULT Block B H Pylori (polyclonal) negative Block D P53 (DO-7) negative Ki-67 (30-9) negative These tests were developed and their performance characteristics determined by [facility]. They may not have been cleared or approved by the U.S. Food and Drug Administration. The FDA has determined that such clearance or approval is not necessary. The above immunohistochemical/dualISH markers are ordered and reviewed by the Pathologist. INTERPRETATION: B. Antrum, biopsy: Negative for Helicobacter pylori organisms. D. Gastroesophageal junction, biopsy: No evidence of dysplasia. AM:chao 08/07/2022
--- NOTE | 2022-08-02 15:08 | OP.EGD_ITS ---
Patient Name: Vahe Rock Procedure Date: 08/02/2022 1:13 PM Date of : 1955 Age: 67 Procedure: Upper GI endoscopy Indications: Epigastric abdominal pain, Abdominal pain in the right upper quadrant, Suspected gastro-esophageal reflux disease Providers: Javed Stanton MD Referring MD: Darren Bridges Medicines: See the Anesthesia note for documentation of the administered medications Patient Profile: Refer to note in patient chart for documentation of history and physical. Complications: No immediate complications. Estimated blood loss: Minimal. Procedure: Pre-Anesthesia Assessment: - The heart rate, respiratory rate, oxygen saturations, blood pressure, adequacy of pulmonary ventilation, and response to care were monitored throughout the procedure. After obtaining informed consent, the endoscope was passed under direct vision. Throughout the procedure, the patient's blood pressure, pulse, and oxygen saturations were monitored continuously. The pediatric colonoscope was introduced through the mouth, and advanced to the second part of duodenum. The upper GI endoscopy was accomplished without difficulty. The patient tolerated the procedure well. Scope In: 1:30:55 PM Scope Out: 2:04:47 PM Total Procedure Duration Time 0 hours 33 minutes 52 seconds Findings: Localized nodular mucosa was found in the ampulla. Biopsies were taken with a cold forceps for histology. Estimated blood loss was minimal. Localized mild inflammation characterized by erythema was found in the gastric antrum. Biopsies were taken with a cold forceps for histology. A single 4 mm semi-sessile polyp with no bleeding and no stigmata of recent bleeding was found in the cardia. Biopsies were taken with a cold forceps for histology. A small hiatal hernia was present. No biopsies or other specimens were collected for this exam. The Z-line was regular and was found 42 cm from the incisors. Biopsies were taken with a cold forceps for histology. Estimated blood loss was minimal. A single 4 mm polyp with no bleeding was found 30 cm from the incisors. Biopsies were taken with a cold forceps for histology. Estimated blood loss was minimal. Impression: - Nodular mucosa in the ampulla. Biopsied. - Gastritis. Biopsied. - A single gastric polyp. Biopsied. - Small hiatal hernia. No specimens collected. - Z-line regular, 42 cm from the incisors. Biopsied. - Esophageal polyp(s) were found. Biopsied. Recommendation: - Discharge patient to home (via wheelchair). - Resume previous diet today. - Use Prilosec (omeprazole) 20 mg PO daily today. - Continue present medications. Procedure Code(s): --- Professional --- 03963, Esophagogastroduodenoscopy, flexible, transoral; with biopsy, single or multiple Diagnosis Code(s): --- Professional --- K31.89, Other diseases of stomach and duodenum K29.70, Gastritis, unspecified, without bleeding K31.7, Polyp of stomach and duodenum K44.9, Diaphragmatic hernia without obstruction or gangrene K22.8, Other specified diseases of esophagus R10.13, Epigastric pain R10.11, Right upper quadrant pain CPT copyright 2017 [employer]. All rights reserved. The codes documented in this report are preliminary and upon desk sergeant review may be revised to meet current compliance requirements. Javed Stanton MD 08/02/2022 3:07:54 PM This report has been signed electronically. Number of Addenda: 0 Note Initiated On: 08/02/2022 1:13 PM
--- NOTE | 2022-08-02 15:08 | OP.CCLET_ITS ---
08/02/2022 Darren Bridges Re : Upper GI endoscopy procedure for Vahe Rock Dear Yuliana This procedure was performed on July. My impressions and recommendations are as follows: Impressions : - Nodular mucosa in the ampulla. Biopsied. - Gastritis. Biopsied. - A single gastric polyp. Biopsied. - Small hiatal hernia. No specimens collected. - Z-line regular, 42 cm from the incisors. Biopsied. - Esophageal polyp(s) were found. Biopsied. Recommendations : - Discharge patient to home (via wheelchair). - Resume previous diet today. - Use Prilosec (omeprazole) 20 mg PO daily today. - Continue present medications. My findings are described in the full procedure note, which is enclosed. If I can be of further assistance, please feel free to contact me at Doctor phone number(s): , Work: . Sincerely, Javed Stanton MD 08/02/2022 3:07:54 PM This report has been signed electronically.
--- NOTE | 2022-08-02 15:14 | OP.CCLET_ITS ---
08/02/2022 Darren Bridges Re : Colonoscopy procedure for Vahe Rock Dear Yuliana This procedure was performed on July. My impressions and recommendations are as follows: Impressions : - Diverticulosis in the sigmoid colon, in the descending colon and in the transverse colon. No specimens collected. - One 5 mm polyp in the sigmoid colon, removed with a hot snare. Resected and retrieved. - One 8 mm polyp in the sigmoid colon in the distal sigmoid colon. Biopsied. - The examination was otherwise normal on direct and retroflexion views. Recommendations : - Discharge patient to home (via wheelchair). - High fiber diet today. - Continue present medications. - Await pathology results. - Repeat colonoscopy date to be determined after pending pathology results are reviewed for surveillance based on pathology results. - Telephone my office for pathology results in 1 week. My findings are described in the full procedure note, which is enclosed. If I can be of further assistance, please feel free to contact me at Doctor phone number(s): , Work: . Sincerely, Javed Stanton MD 08/02/2022 3:13:50 PM This report has been signed electronically.
--- NOTE | 2022-08-02 15:14 | OP.COLON_ITS ---
Patient Name: Vahe Rock Procedure Date: 08/02/2022 2:05 PM Date of : 1955 Age: 67 Procedure: Colonoscopy Indications: Screening for colorectal malignant neoplasm Providers: Javed Stanton MD Referring MD: Darren Bridges Medicines: See the Anesthesia note for documentation of the administered medications Patient Profile: Refer to note in patient chart for documentation of history and physical. Last Colonoscopy: none. The patient's first colonoscopy is today. Complications: No immediate complications. Estimated blood loss: Minimal. Procedure: Pre-Anesthesia Assessment: - The heart rate, respiratory rate, oxygen saturations, blood pressure, adequacy of pulmonary ventilation, and response to care were monitored throughout the procedure. After I obtained informed consent, the scope was passed under direct vision. Throughout the procedure, the patient's blood pressure, pulse, and oxygen saturations were monitored continuously. The pediatric colonoscope was introduced through the anus and advanced to the cecum, identified by appendiceal orifice and ileocecal valve. The colonoscopy was technically difficult and complex due to a tortuous colon. Successful completion of the procedure was aided by applying abdominal pressure. The patient tolerated the procedure well. The quality of the bowel preparation was adequate to identify polyps. Scope In: 2:06:23 PM Scope Withdrawal Time 0 hours 37 minutes 2 seconds Scope Out: 2:57:14 PM Total Procedure Duration Time 0 hours 50 minutes 51 seconds Findings: Many small and large-mouthed diverticula were found in the sigmoid colon, descending colon and transverse colon. No biopsies or other specimens were collected for this exam. A 5 mm polyp was found in the sigmoid colon. The polyp was semi-pedunculated. The polyp was removed with a hot snare. Resection and retrieval were complete. Estimated blood loss was minimal. A 8 mm polyp was found in the sigmoid colon distal sigmoid colon. The polyp was sessile. Biopsies were taken with a cold forceps for histology. Estimated blood loss was minimal. The exam was otherwise without abnormality on direct and retroflexion views. Impression: - Diverticulosis in the sigmoid colon, in the descending colon and in the transverse colon. No specimens collected. - One 5 mm polyp in the sigmoid colon, removed with a hot snare. Resected and retrieved. - One 8 mm polyp in the sigmoid colon in the distal sigmoid colon. Biopsied. - The examination was otherwise normal on direct and retroflexion views. Recommendation: - Discharge patient to home (via wheelchair). - High fiber diet today. - Continue present medications. - Await pathology results. - Repeat colonoscopy date to be determined after pending pathology results are reviewed for surveillance based on pathology results. - Telephone my office for pathology results in 1 week. Procedure Code(s): --- Professional --- 06224, Colonoscopy, flexible; with removal of tumor(s), polyp(s), or other lesion(s) by snare technique 60949, 59, Colonoscopy, flexible; with biopsy, single or multiple Diagnosis Code(s): --- Professional --- Z12.11, Encounter for screening for malignant neoplasm of colon D12.5, Benign neoplasm of sigmoid colon K57.30, Diverticulosis of large intestine without perforation or abscess without bleeding CPT copyright 2017 [employer]. All rights reserved. The codes documented in this report are preliminary and upon bias cutting machine operator vertical review may be revised to meet current compliance requirements. Javed Stanton MD 08/02/2022 3:13:50 PM This report has been signed electronically. Number of Addenda: 0 Note Initiated On: 08/02/2022 2:05 PM
== END 2022-08-02 16:19 | disposition home or self-care (01) ==
LOC: EN 11:53 → AC 12:17
PROVIDERS: PCP Family Medicine; Referring Provider Family Medicine; Visit Provider Surgery
PROC: 0DJD8ZZ Inspection of Lower Intestinal Tract, Via Natural or Artificial Opening Endoscopic (ICD-10-PCS; CPT 45378; principal; 2022-08-02 12:55)
DX: K44.9 Diaphragmatic hernia without obstruction or gangrene (principal); Q43.8 Other specified congenital malformations of intestine; K31.89 Other diseases of stomach and duodenum; K22.81 Esophageal polyp; K31.7 Polyp of stomach and duodenum; K63.5 Polyp of colon; K29.50 Unspecified chronic gastritis without bleeding
CPT/HCPCS: 43239; 45385; 45380; 88305; 88313; 88341; 88342; J7120; J2405

== ENCOUNTER → 2022-11-14 | Outpatient (CLI) | payer MEDICARE, OTHER, SELFPAY ==
[2022-11-14 12:34] LABS: Absolute Lymphocyte Count 1.49 X10^3/uL (0.83-4.51); Absolute Neutrophil Count 3.6 X10^3/uL (2.0-7.7); Basophil# 0.06 X10^3/uL; Basophil% 1.1 % (0-1); Eosinophil# 0.05 X10^3/uL; Eosinophils% 0.9 % (0-5); Hemoglobin 14.1 g/dL (13.0-16.5); Lymphocyte # 1.49 X10^3/ul (0.83-4.51); Lymphocyte % 26.5 % (19-41); Mean Corp Hgb Conc 32.8 g/dL (32-36); Mean Corpuscular Hgb 30.3 pg (27.0-32.0); Mean Corpuscular Volume 92.3 fL (80-94); Mean Platelet Vol. 10.6 fl (6.2-12.0); Monocyte# 0.41 X10^3/uL; Monocyte% 7.3 % (0-10); NRBC Flagged by Analyzer 0 % (0-5); Neutrophil # 3.59 X10^3/uL (2.7-7.7); Neutrophil % 63.8 % (47-70); Platelet Count 263 K/mm3 (150-450); RBC Distribution Width CV 13.6 % (11.6-14.6); RBC Distribution Width SD 46.3 fl (35.1-43.9); Red Blood Count 4.66 M/mm3 (4.6-6.2); White Blood Count 5.6 K/mm3 (4.4-11.0)
[2022-11-14 13:12] LABS: ALB/GLOB Ratio 1.1 RATIO (0.9-2.4); AST(SGOT) 18 U/L (15-37); Alanine Aminotransfer ALT/SGPT 23 U/L (16-61); Albumin, Serum 3.7 g/dL (3.2-5.0); Alkaline Phosphatase 55 U/L (45-117); Anion Gap 5 (5-15); BUN 22 mg/dL (7-18); BUN/Creat Ratio 22.7 RATIO (10-20); Calcium,Total 9.1 mg/dL (8.5-10.1); Chloride 109 mmol/L (98-107); Cholesterol 143 mg/dL (200); Creatinine, Serum 0.97 mg/dL (0.70-1.30); EST Glomerular Filtration Rate 82 mL/min (>60); Est Glom Filt Rate - Afr Amer 99 mL/min (>60); Globulin 3.4 g/dL (2.2-4.2); Glucose 89 mg/dL (74-106); High Density Lipoprotein 62 mg/dL; PSA,Total - Annual Screen 3.73 ng/mL (0.00-4.00); Potassium 4.2 mmol/L (3.5-5.1); Protein, Total 7.1 g/dL (6.4-8.2); Sodium Level 138 mmol/L (136-145); T4 Free Direct 0.99 ng/dL (0.76-1.46); Thyroid Stim Hormone (TSH) 1.92 uIU/mL (0.358-3.74); Triglycerides 82 mg/dL; Very Low Density Lipoprotein 16 mg/dL (5-40)
[2022-11-16 09:51] LABS: Anti-Thyroglobulin AB < 1.0 IU/mL (0.0-0.9); Thyroglobulin, Serum Qt. 37.4 ng/mL (1.4-29.2); Thyroid Peroxidase AB 33 IU/mL (0-34)
== END | disposition home or self-care (01) ==
PROVIDERS: PCP Family Medicine; Referring Provider Family Medicine; Visit Provider Family Medicine
DX: R79.89 Other specified abnormal findings of blood chemistry (principal); E04.1 Nontoxic single thyroid nodule
CPT/HCPCS: 36415; 80053; 80061; 84153; 84432; 84439; 84443; 85025; 86376; 86800; G0103

== ENCOUNTER 2022-12-04 12:23 | Day surgery (SDC) | payer MEDICARE, OTHER, SELFPAY ==
--- NOTE | 2022-12-04 12:37 | EKG12_ITS ---
Test Reason : PREOP Blood Pressure : / mmHG Vent. Rate : 062 BPM Atrial Rate : 062 BPM P-R Int : 166 ms QRS Dur : 102 ms QT Int : 422 ms P-R-T Axes : 033 -18 005 degrees QTc Int : 428 ms Normal sinus rhythm Normal ECG When compared with ECG of 08-JUN-2022 16:37, No significant change was found Confirmed by IVANIA RUIZ, STEPHANY ([id number]), food expeditor [place] ([id number]) on 12/10/2022 1:53:52 PM Referred By: Scout Goodson Confirmed By:STEPHANY REDD MD
[2022-12-04 12:45] VITALS: BP 139/88; PULSE 66; RESP 18; TEMP 36.3; O2SAT 97; BMI 29.0
[2022-12-04] MEDS: Lactated Ringers 1,000 ML 15 ML IV (12:57)
--- NOTE | 2022-12-04 13:11 | HP.PCM_ITS ---
History and Physical Date of Admission: 12/04/22 TYLER AYALA, is a 67 M who presents to the office today for [facility] ED presentation 06.08.22 with RUQ pain that later radiated to chest and shoulder blade and worsening intensity with intermittent nausea. No acute findings during workup and he was discharged with instruction to establish with Dr. Stanton. ?Biochemical workup?CBC, CMP, UA without pertinent abnormality. ? Lipase L72 ?US RUQ?BOSNIAK type II right renal cyst. Exam otherwise without acute/chronic abnormality. ?CT abd/pel?large exophytic simple right renal cyst; diverticulosis without inflammatory changes; enlarged prostate. [facility] Dr. Stanton seen 06.12.22. He had started a mild diet and no repeat of symptoms. 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 ?EGD and colonoscopy 08.02.22?EGD found nodular mucosa of ampulla with chronic inflammation and focal adenomatous changes; gastritis; gastric polyp, without path changes; esophageal polyps; small hiatal hernia; GE junction biopsy with focal goblet cell metaplasia and inflammation. H.Pylori negative. ? Colonoscopy found diverticulosis; two 5&8mm hyperplastic polyps in sigmoid colon. *BGI established 10.25.22 with referral from [facility] where he established following W ED presentation. PPI has been helpful and has had a resolution of previously noted symptoms. ROS Const Constitutional: Positive for other (6 system ROS completed with pertinent findings in the HPI otherwise normal.) Exam Const General: cooperative and healthy appearing [facility] Head: normocephalic and atraumatic Ears: hearing grossly normal bilaterally Nose: external nose normal Face and sinus: normal facial exam and face symmetric Mouth: oral mucosae normal Throat: posterior oropharynx normal Eyes General: appearance normal, both eyes and all related structures Resp Effort & Inspection: normal respiratory effort Auscultation: Bilateral: Clear to Auscultation Cardio Palpation: normal PMI Rate: regular rate Rhythm: regular rhythm Skin General: no rashes or lesions noted Neuro General: patient alert and CN's II-XI intact bilaterally Psych Appearance: grossly normal Mental Status: mental status grossly normal Quality Reporting Tobacco Screening ([facility] 138) Smoking Status: Never smoker Assessment and Plan Assessment and Plan (1) Hiatal hernia with GERD: ?Status:?Chronic ?Plan: He is having no symptoms of gastroesophageal reflux disease as long as he takes the Protonix therapy.? We will continue that for now. 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 The goal would be for ampullectomy.? He was explained alternatives, risk, benefits including not withstanding bleeding, infection, sepsis, perforation, need for emergent surgery .? He will have an ASA of 1. ? ? ? Medications: Refilled pantoprazole (Protonix) 20 mg PO DAILY 90 tabs 1RF I have examined the patient and the H&P has been reviewed. There are no clinical changes since date of exam.
--- NOTE | 2022-12-04 13:30 | TISS_PTH ---
PATIENT: TYLER AYALA LOC: EN U#:[id number] AGE/SX: 67/M ROOM: RE12/04/[address]: Dr. Bhavesh Shetty DO : 1955 BED: DIS: 12/04/2022 SPEC #: [id number] RECD: 12/04/22 15:59 STATUS: VINICIUS REQ #: [id number] EUSEBIA: 12/04/22 13:[address]: Bhavesh Shetty DEPT: SURGICAL PATHOLOGY RECD BY: Bob Vega ENTERED: 12/05/22 08:20 SP TYPE: Tissue Bx FREYA DR: Dr. Scout Goodson MD Tissues: TISSUE SURGICALLY REMOVED Procedures: Surgery Specimen Level IV HEADER OPERATION: ERCP with brushings, ampullectomy, stent PRE-OP DIAGNOSIS: Ampulla of Vater mass TISSUE SUBMITTED: Ampullary mass MICROSCOPIC DIAGNOSIS Ampullary mass, ampullectomy: Fragments of tubular adenoma. KATERINA:chao 12/06/2022 COMMENT Please also correlate with corresponding cytology specimen [id number]. This case has been reviewed in consultation with Dr. Frank who concurs with the above diagnosis. MICROSCOPIC DESCRIPTION Slides are reviewed. GROSS DESCRIPTION Received is one container labeled with the patient's name and not further designated. The specimen consists of multiple irregular fragments of light hoffmann soft tissue that in aggregate measure 2.0 x 1.5 x 0.3 cm. The specimen is totally submitted in one cassette. / AM:chao 12/05/2022 TC:5 CPT: 38856
--- NOTE | 2022-12-04 13:30 | FLU_PTH ---
PATIENT: TYLER AYALA LOC: EN U#:[id number] AGE/SX: 67/M ROOM: RE12/04/[address]: Dr. Bhavesh Shetty DO : 1955 BED: DIS: 12/04/2022 SPEC #: [id number] RECD: 12/04/22 18:15 STATUS: VINICIUS REAura #: [id number] EUSEBIA: 12/04/22 13:[address]: Bhavesh Shetty DEPT: CYTOLOGY RECD BY: Bob Vega ENTERED: 12/05/22 08:10 SP TYPE: Fluid OTHR DR: Dr. Scout Goodson MD Tissues: A - Bile duct, NOS B - Bile duct, NOS Procedures: Special Stain Group II Surgery Specimen Level IV Cytospin Fluid HEADER OPERATION: ERCP with brushings, ampullectomy, stent PRE-OP DIAGNOSIS: Ampulla of Vater mass TISSUE SUBMITTED: A ? Distal common bile duct stricture brushings, B ? [place] x3 slides DIAGNOSIS CYTOLOGY A. Distal common bile duct stricture brushings fluid (cytospin and cell block): Negative for malignant cells. See comment. B. Brushings (smears): Negative for malignant cells. See comment. SJ:rg 12/06/2022 COMMENT A. Benign glandular epithelial cells are noted. B. The specimen is paucicellular and shows benign glandular epithelial cells. Please also make reference to corresponding surgical specimen ([id number]) ampullary mass, ampullectomy with diagnosis of ?fragments of tubular adenoma.? Case has been reviewed in consultation with Dr. Frank who concurs with the above diagnosis. IDC:AM CYTOLOGY STUDY Slides are reviewed. CYTOLOGY GROSS A - Received is a metallic endoscopic cytobrush with adherent minute fragments of hoffmann-red tissue brush in 2 ml of clear red fluid and labeled with the patient's name and and designated per the requisition as brush. The material is dislodged from the brush and submitted for cytology preparation including cell block. B - Received are three smears labeled with the patient's name and designated per the requisition as brush. Submitted for staining. / chao 12/05/2022 TC:5 CPT: 99629, 95489, 74397
--- NOTE | 2022-12-04 13:40 | RAD_ITS ---
Fluoroscopic guided ERCP INDICATION: Pain TECHNIQUE: ERCP was performed in the anterior projection utilizing fluoroscopic guidance bilateral attending computer hardware developer utilizing 10.4 seconds of fluoroscopic time. FINDINGS: 3 fluoroscopic guided images were obtained during the exam to confirm findings during the procedure. For complete information recommend correlation with computer hardware developer procedural notes. RAD/ERCP Biliary Only IMPRESSION: Fluoroscopic-guided ERCP Electronically Signed: Juan Alejo MD at 20:05 EDT ,
--- NOTE | 2022-12-04 15:17 | OP.ERCP_ITS ---
Patient Name: Vahe Rock Procedure Date: 12/04/2022 2:06 PM Date of : 1955 Age: 67 Procedure: ERCP Indications: Suspected acute pancreatitis, Periampullary tumor, Abdominal pain of suspected biliary origin Providers: Bhavesh Shetty DO Referring MD: Bhavesh Shetty DO Medicines: Monitored Anesthesia Care Patient Profile: This is a 67 year old male. Refer to note in patient chart for documentation of history and physical. Patient has symptoms of acute right upper quadrant abdominal pain and acute dyspepsia. He is status post EGD for Bolaños's biopsy within the past three months. Complications: No immediate complications. Procedure: Pre-Anesthesia Assessment: - Prior to the procedure, a History and Physical was performed, and patient medications and allergies were reviewed. The patient is competent. The risks and benefits of the procedure and the sedation options and risks were discussed with the patient. All questions were answered and informed consent was obtained. Patient identification and proposed procedure were verified by the physician in the pre-procedure area. Mental Status Examination: alert and oriented. Airway Examination: normal oropharyngeal airway and neck mobility. Respiratory Examination: clear to auscultation. CV Examination: normal. Prophylactic Antibiotics: The patient does not require prophylactic antibiotics. Prior Anticoagulants: The patient has taken no previous anticoagulant or antiplatelet agents. ASA Grade Assessment: II - A patient with mild systemic disease. After reviewing the risks and benefits, the patient was deemed in satisfactory condition to undergo the procedure. The anesthesia plan was to use monitored anesthesia care (MAC). Immediately prior to administration of medications, the patient was re-assessed for adequacy to receive sedatives. The heart rate, respiratory rate, oxygen saturations, blood pressure, adequacy of pulmonary ventilation, and response to care were monitored throughout the procedure. The physical status of the patient was re-assessed after the procedure. After obtaining informed consent, the scope was passed under direct vision. Throughout the procedure, the patient's blood pressure, pulse, and oxygen saturations were monitored continuously. The Duodenoscope was introduced through the mouth, and advanced to the duodenum and used to inject contrast into the bile duct. The ERCP was accomplished without difficulty. The patient tolerated the procedure well. Scope In: 2:40:42 PM Scope Out: 3:06:47 PM Total Procedure Duration Time 0 hours 26 minutes 5 seconds Findings: The inspector fabric film was normal. The esophagus was successfully intubated under direct vision. The scope was advanced to a normal major papilla in the descending duodenum without detailed examination of the pharynx, larynx and associated structures, and upper GI tract. The upper GI tract was grossly normal. A standard esophagogastroduodenoscopy scope was used for the examination of the upper gastrointestinal tract. The scope was passed under direct vision through the upper GI tract. A small hiatal hernia was present. The upper GI tract was normal. A standard esophagogastroduodenoscopy scope was used for the examination of the upper gastrointestinal tract. The scope was passed under direct vision through the upper GI tract. A large polypoid mass, consistent with adenoma, with no bleeding was found in the ampulla. Biopsies were taken in the ampulla through the esophagogastroduodenoscope with the cold forceps for histology. Mucin was emerging from the major papilla. The major papilla was bulging. A straight Roadrunner wire was passed into the biliary tree. A 5 mm biliary sphincterotomy was made with a traction (standard) sphincterotome using ERBE electrocautery. The sphincterotomy oozed blood. The biliary tree was swept with a 15 mm balloon starting at the bifurcation. Sludge was swept from the duct. All stones were removed. Dilation of the lower third of the main bile duct with 5-7-8.5 Fr catheter dilator was successful. Cells for cytology were obtained by brushing in the lower third of the main bile duct. Using a snare, the major papilla was grasped. Papilla resection was attempted using ERBE electrocautery. Papilla resection was incomplete. The resected tissue was retrieved. One 10 Fr by 7 cm temporary stent with two external flaps and two internal flaps was placed 5 cm into the common bile duct. Bile flowed through the stent. The stent was in good position. Impression: - Small hiatal hernia. - Normal upper GI tract. - Mass (suspected adenoma) in the ampulla. - Biopsies were taken with a cold forceps for histology in the ampulla. - Mucin was seen in the major papilla. - The major papilla appeared to be bulging. - Choledocholithiasis was found. Complete removal was accomplished by biliary sphincterotomy and balloon extraction. - A biliary sphincterotomy was performed. - The biliary tree was swept. - The lower third of the main bile duct was successfully dilated. - Cells for cytology obtained in the lower third of the main duct. - Snare papillectomy of the major papilla was performed. Papilla resection was incomplete. The resected tissue was retrieved. - One temporary stent was placed into the common bile duct. Recommendation: - Avoid aspirin and nonsteroidal anti-inflammatory medicines for 7 days. Procedure Code(s): --- Professional --- 77324, Endoscopic retrograde cholangiopancreatography (ERCP); with placement of endoscopic stent into biliary or pancreatic duct, including pre- and post-dilation and guide wire passage, when performed, including sphincterotomy, when performed, each stent 02076, Endoscopic retrograde cholangiopancreatography (ERCP); with removal of calculi/debris from biliary/pancreatic duct(s) 88102, Esophagogastroduodenoscopy, flexible, transoral; with removal of tumor(s), polyp(s), or other lesion(s) by snare technique 42764, 59, Esophagogastroduodenoscopy, flexible, transoral; with biopsy, single or multiple CPT copyright 2017 [employer]. All rights reserved. The codes documented in this report are preliminary and upon tie inspector review may be revised to meet current compliance requirements. Bhavesh Shetty DO 12/04/2022 3:16:43 PM This report has been signed electronically. Number of Addenda: 0 Note Initiated On: 12/04/2022 2:06 PM
--- NOTE | 2022-12-04 15:18 | OP.CCLET_ITS ---
12/04/2022 Scout Goodson [address] [place] [address] Re : ERCP procedure for Vahe Rock Dear Dr. Goodson This procedure was performed on Sunday, December 04, 2022. My impressions and recommendations are as follows: Impressions : - Small hiatal hernia. - Normal upper GI tract. - Mass (suspected adenoma) in the ampulla. - Biopsies were taken with a cold forceps for histology in the ampulla. - Mucin was seen in the major papilla. - The major papilla appeared to be bulging. - Choledocholithiasis was found. Complete removal was accomplished by biliary sphincterotomy and balloon extraction. - A biliary sphincterotomy was performed. - The biliary tree was swept. - The lower third of the main bile duct was successfully dilated. - Cells for cytology obtained in the lower third of the main duct. - Snare papillectomy of the major papilla was performed. Papilla resection was incomplete. The resected tissue was retrieved. - One temporary stent was placed into the common bile duct. Recommendations : - Avoid aspirin and nonsteroidal anti-inflammatory medicines for 7 days. My findings are described in the full procedure note, which is enclosed. If I can be of further assistance, please feel free to contact me at . Sincerely, Bhavesh Shetty, 12/04/2022 3:16:43 PM This report has been signed electronically.
[2022-12-04 15:24] VITALS: BP 114/85; BP 139/88; PULSE 84; RESP 16; TEMP 36.1; O2SAT 94
[2022-12-04 15:30] VITALS: BP 119/89; BP 139/88; PULSE 77; RESP 16; O2SAT 99
[2022-12-04 15:41] VITALS: BP 130/94; BP 139/88; PULSE 73; RESP 16; TEMP 36.2; O2SAT 96
[2022-12-04 15:54] VITALS: BP 139/88
== END 2022-12-04 16:40 | disposition home or self-care (01) ==
LOC: EN 12:24 → AC 12:26
PROVIDERS: PCP Family Medicine; Referring Provider Family Medicine; Visit Provider Internal Medicine Gastroenterology
PROC: (CPT 43260; principal; 2022-12-04 13:10)
DX: K44.9 Diaphragmatic hernia without obstruction or gangrene (principal); K21.9 Gastro-esophageal reflux disease without esophagitis; K80.50 Calculus of bile duct without cholangitis or cholecystitis without obstruction; K83.8 Other specified diseases of biliary tract
CPT/HCPCS: 43264; 43274; 43251; 43239; 74328; 76000; 88108; 88305; 88313; 93005; J7120; J2405

== ENCOUNTER 2022-12-05 00:26 | Inpatient (IN) | payer MEDICARE, OTHER, SELFPAY ==
[2022-12-05] VITALS (10 sets, daily range): BP systolic 145–186; BP diastolic 91–106; PULSE 66–106; RESP 14–20; TEMP 36.3–37.2; O2SAT 91–97; BMI 29.6; BMI 28.8
--- NOTE | 2022-12-05 01:29 | CT_ITS ---
EXAM: CT chest, abdomen and pelvis with IV contrast. HISTORY: Abdominal pain TECHNIQUE: CT chest Abdomen And Pelvis W/ Contrast Injection A radiation dose optimization technique was used for this scan. COMPARISON: CT abdomen and pelvis 06/08/2022 RADIATION DOSAGE (If Supplied By Facility): CTDIvol = ( 19.08 ) mGy, DLP = ( 1555.66 ) mGycm LIMITATIONS: None. CHEST: LUNGS: No pneumonia or edema. Groundglass opacities at the dependent lung bases, likely dependent atelectasis.. PULMONARY VESSELS: Normal. PLEURA: Normal MEDIASTINUM: Partially calcified subcentimeter thyroid nodularity. Ascending thoracic aortic aneurysm measuring up to 4.1 cm at the sinuses of Valsalva. ABDOMEN/PELVIS: LIVER: Hypoattenuating hepatic lesions, similar compared to the prior, too small to characterize.. GALLBLADDER/BILE DUCTS: Trace gas in the gallbladder. CBD stent in place.. PANCREAS: Peripancreatic fat stranding and moderate fluid extending into the retroperitoneum. Ectatic duct is dilated measuring up to 5 mm in the head and neck. SPLEEN: Normal. ADRENAL GLANDS: Normal. KIDNEYS/URETERS/BLADDER: 6.6 cm right renal cystic structure, similar compared to the prior. No hydroureteronephrosis or radiopaque nephrolithiasis.. RETROPERITONEUM/AORTA: Mild atherosclerotic calcifications.. BOWEL/MESENTERY: Scattered colonic diverticulosis without discrete evidence of acute diverticulitis. No bowel dilatation or bowel wall thickening. APPENDIX: Identified and normal. PERITONEUM: Normal. REPRODUCTIVE ORGANS: Prostatomegaly. BONES/SOFT TISSUES: Left shoulder arthroplasty with streak artifact, limiting evaluation. No acute osseous abnormality.. OTHER: Small fat-containing umbilical hernia. CT/Abdomen/Pelvis W IV Cont ONLY IMPRESSION: 1. Peripancreatic inflammatory changes and ductal dilatation, consistent with acute pancreatitis. Correlate with lipase. 2. CBD stent in place. 3. Trace gas in the gallbladder. 4. Scattered colonic diverticulosis without discrete evidence of acute diverticulitis. 5. Mild ascending thoracic aortic aneurysm measuring 4.1 cm. Electronically Signed: Kev Snyder MD at 2:41 EDT ,
--- NOTE | 2022-12-05 01:29 | RAD_ITS ---
INDICATION: dyspnea X-RAY - XR Chest 1 View COMPARISON: 06/08/2022. FINDINGS: LINES/DEVICES: None. LUNGS: No consolidation or evidence of an effusion. No evidence of edema or a pneumothorax. Left basilar atelectasis versus scarring. MEDIASTINUM AND CARDIOVASCULAR STRUCTURES: Cardiac silhouette is normal in size and contour. Mediastinum is unremarkable. BONES AND SOFT TISSUES: No acute abnormality. Common bile duct stent seen in the partially visualized upper abdomen. RAD/Chest 1 View (Portable) IMPRESSION: No evidence of acute cardiopulmonary disease. Electronically Signed: Juan Presley DO at 2:45 EDT ,
[2022-12-05] MEDS: Morphine 4 MG/ML Syringe IV (01:50)
[2022-12-05] MEDS: 0.9% Normal Saline 1,000 ML 999 ML IV ×2 (01:50→06:20)
[2022-12-05] MEDS: Ondansetron 4 MG/2 ML Vial IV (01:50)
[2022-12-05 02:00] LABS: Absolute Lymphocyte Count 0.67 X10^3/uL (0.83-4.51); Absolute Neutrophil Count 8.2 X10^3/uL (2.0-7.7); Basophil# 0.01 X10^3/uL; Basophil% 0.1 % (0-1); Hematocrit 45.5 % (40-54); Hemoglobin 15.2 g/dL (13.0-16.5); Lymphocyte # 0.67 X10^3/ul (0.83-4.51); Lymphocyte % 7.1 % (19-41); Mean Corp Hgb Conc 33.4 g/dL (32-36); Mean Corpuscular Hgb 30.2 pg (27.0-32.0); Mean Corpuscular Volume 90.5 fL (80-94); Mean Platelet Vol. 10.5 fl (6.2-12.0); Monocyte# 0.48 X10^3/uL; Monocyte% 5.1 % (0-10); NRBC Flagged by Analyzer 0 % (0-5); Neutrophil % 87.5 % (47-70); Platelet Count 293 K/mm3 (150-450); RBC Distribution Width CV 13.3 % (11.6-14.6); RBC Distribution Width SD 44.3 fl (35.1-43.9); Red Blood Count 5.03 M/mm3 (4.6-6.2); White Blood Count 9.4 K/mm3 (4.4-11.0)
[2022-12-05 02:31] LABS: Lactic Acid 1.5 mmol/L (0.4-1.9)
[2022-12-05 02:33] LABS: AST(SGOT) 53 U/L (15-37); Alanine Aminotransfer ALT/SGPT 50 U/L (16-61); Alkaline Phosphatase 114 U/L (45-117); Anion Gap 6 (5-15); BUN 20 mg/dL (7-18); BUN/Creat Ratio 16.5 RATIO (10-20); Bilirubin, Direct 1.33 mg/dL (0.00-0.30); Calcium,Total 9.9 mg/dL (8.5-10.1); Chloride 106 mmol/L (98-107); Creatinine, Serum 1.21 mg/dL (0.70-1.30); EST Glomerular Filtration Rate 63 mL/min (>60); Est Glom Filt Rate - Afr Amer 77 mL/min (>60); Globulin 3.6 g/dL (2.2-4.2); Glucose 200 mg/dL (74-106); Potassium 4.2 mmol/L (3.5-5.1); Protein, Total 7.6 g/dL (6.4-8.2); Sodium Level 136 mmol/L (136-145)
[2022-12-05 03:04] LABS: Lipase > 5000 U/L (13-75)
[2022-12-05] MEDS: Morphine 2 MG/ML Syringe IV (03:08)
--- NOTE | 2022-12-05 03:30 | EDS_ITS ---
HPI History of Present Illness Chief Complaint: Abd Pain Informant: patient and spouse/S.O. Narrative Narrative: Patient is a 67-year-old male with past medical history of gastritis who underwent an EGD with common bile duct stent placement this afternoon. He sta jessica he was doing well but around 7 PM developed some generalized upper abdominal pain. He states as time passes pain increased and became more intense and he developed bouts of nausea and vomiting. He states he tried [id number]-[id number] medications without any symptom improvement and with this comes in for evaluation [facility] Medical History (Updated 12/05/22 @ 05:[address] Oziel Garcias, DO) Ampulla of Vater mass Arthritis Hiatal hernia with GERD Non-smoker Wears glasses Home Medications acetaminophen 325 mg capsule (Tylenol) 325 mg PO Q6H PRN Pain 06/12/22 [History Last Taken Unknown] melatonin 5 mg capsule 5 mg PO QHS PRN Sleep 06/12/22 [History Last Taken Un known] Allergy/AdvReac Type Severity Reaction Status Date / Time No Known Allergies Allergy Verified 12/05/22 00:31 Family History Sister Breast cancer Thyroid disorder Mother Heart disease Hypertension Thyroid disorder Surgical History H/O shoulder replacement History of Achilles tendon repair History of hernia repair History of microdiscectomy Social History Smoking Status: Never smoker alcohol intake: current details: 1 beer per day substance use type: does not use ROS ROS ED Constitutional Constitutional ED: Denies chills or fever(s) ENT ENT ED: Denies sore throat Cardiovascular Cardiovascular: Denies chest pain Respiratory/Chest Respiratory/Chest: Denies cough or dyspnea Gastrointestinal Gastrointestinal: Reports abdominal pain, nausea and vomiting; Denies diarrhea Genitourinary Genitourinary ED: Denies dysuria Musculoskeletal Musculoskeletal: Denies myalgias Integumentary Denies rash Neurologic Neurologic: Denies headache(s) Hematologic/Lymphatic Hematologic/Lymphatic: Denies easy bleeding or easy bruising EXAM Physical Exam Const Vital Signs: 12/05/22 00:27 Temperature 97.7 F L Temperature Source Oral Pulse Rate 70 Respiratory Rate 15 Blood Pressure 162/97 H Blood Pressure Mean 118 Pulse Ox 93 Oxygen Delivery Method Room Air Positive well nourished and well developed General Appearance ED: well developed HEENT Reports dry mucous membranes Mouth ED: Yes dry mucous membranes Mouth: dry mucous membranes Eyes PERRL and EOMs intact bilaterally General Eye ED: Negative for scleral icterus Neck supple Chest Wall palpation of chest normal Resp normal respiratory effort and clear to auscultation bilaterally Cardio regular rate and regular rhythm Rate: other Other Details: Radial pulses are plus 2 out of 4 bilaterally are equal and symmetric GI non-distended GI Narrative: Abdomen is soft and nondistended with normal active bowel sounds. There is pain with palpation in the midepigastric region with voluntary guarding at the site. No rigidity or pulsatile mass noted. No fluid wave Auscultation: normoactive bowel sounds Palpation: soft Extremity normal to inspection Neuro oriented x3 and CN's II-XII intact bilaterally Sensorium / Orientation: alert Psych mental status grossly normal Skin no rashes or lesions noted General Skin Exam: Negative for jaundice MDM MDM MDM Narrative Medical decision making narrative: Patient presented to the ER mildly hypertensive but otherwise with stable vitals. He had a recent EGD with common bile duct stent placement earlier today and with the increasing pain there is concern that the biopsy that was performed today led to a small perforation. However his stomach is not rigid going against this. There is also concern that with the common bile duct stent placement has been irritation to the pancreas leading to acute pancreatitis. Secondary to this basic blood work with a CT scan was obtained. Labs revealed a lipase over 5000 consistent with acute pancreatitis but otherwise no clinically significant change. CT scan showed no perforation but did note diffuse inflammation around the pancreas consistent with acute pancreatitis which also correlates with his elevated lipase. At this time the patient is having intractable pain secondary to the pancreatitis and therefore will need admitted to the hospital for further care. History & Record Review Discussion w/independent historian: Patient and Significant other Lab Data Attestation: I reviewed the patient's lab results. Labs: Laboratory Results - last 24 hr 12/05/22 12/05/22 12/05/22 00:40 00:40 01:50 WBC 9.4 RBC 5.03 Hgb 15.2 Hct 45.5 MCV 90.5 MCH 30.2 MCHC 33.4 RDW Std Deviation 44.3 H RDW Coeff of Precious 13.3 Plt Count 293 MPV 10.5 Immature Gran % (Auto) 0.200 Neut % (Auto) 87.5 H Lymph % (Auto) 7.1 L [place] % (Auto) 5.1 Eos % (Auto) 0.0 Baso % (Auto) 0.1 Absolute Neuts (auto) 8.2 H Absolute Lymphs (auto) 0.67 L Nucleated RBC % 0 Sodium 136 Potassium 4.2 Chloride 106 Carbon Dioxide 24.0 Anion Gap 6 BUN 20 H Creatinine 1.21 Est GFR (MDRD) Af Amer 77 Est GFR (MDRD) Non-Af 63 BUN/Creatinine Ratio 16.5 Glucose 200 H Lactic Acid 1.5 Calcium 9.9 Total Bilirubin 2.60 H Direct Bilirubin 1.33 H AST 53 H ALT 50 Alkaline Phosphatase 114 Total Protein 7.6 Albumin 4.0 Globulin 3.6 Lipase > 5000 H Radiography Diagnostic Testing: Clinical Impression(s) from Imaging Studies Abdomen/Pelvis CT 12/05/22 01:29 IMPRESSION: 1. Peripancreatic inflammatory changes and ductal dilatation, consistent with acute pancreatitis. Correlate with lipase. 2. CBD stent in place. 3. Trace gas in the gallbladder. 4. Scattered colonic diverticulosis without discrete evidence of acute diverticulitis. 5. Mild ascending thoracic aortic aneurysm measuring 4.1 cm. Electronically Signed: Kev Snyder MD at 2:41 EDT , Chest X-Ray 12/05/22 01:29 IMPRESSION: No evidence of acute cardiopulmonary disease. Electronically Signed: Juan Presley DO at 2:45 EDT , Chest x-ray as interpreted by the emergency medicine physician reveals no acute infiltrate pneumothorax or pleural effusion Management Discussion w/another healthcare provider: Hospitalist Discharge Plan Dx/Rx/DC Orders Clinical Impression: Acute pancreatitis, Gastritis, Intractable abdominal pain Disposition Disposition: [facility]
[2022-12-05] MEDS: HYDROmorphone 1 MG/ML Syringe IV ×6 (03:41→21:39)
[2022-12-05] MEDS: 0.9% Normal Saline 1,000 ML 200 ML IV ×2 (03:41→23:04)
--- NOTE | 2022-12-05 04:02 | HP.PCM_ITS ---
HPI - General General Date of Admission: 12/05/22 Date of Service: 12/05/22 Chief Complaint: Abdominal pain, nausea, emesis. 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 pylori negative and C-scope with diverticulosis w/ follow-up 12/04/[address] 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 Patient initially had onset of discomfort initially right flank and right upper quadrant starting approximately 7 PM but over 6 hours it progressively worsened with significant 10 out of 10 severe pain, worse with any palpation of the abdomen with as noted nausea and emesis. He denies any diarrhea, fever or chills work-up in the ED included T97.7, heart rate 70, BP 160/97, respiratory rate 15, 93% oxygenation, CBC with WC 9.4, hemoglobin 15.2, platelet 293 with left shift and lymphopenia, CMP with glucose 200, lactic acid 1.5, T. bili 2.60, D bili 1.33, AST/ALT 53/50, lipase greater than 5000, chest x-ray with no acute cardiopulmonary finding, CT abdomen and pelvis with peripancreatic inflammatory changes and ductal dilatation consistent with acute pancreatitis, CBD stent in place, trace gas in the gallbladder, scattered colonic diverticulosis without any discrete evidence of acute diverticulitis, mild ascending thoracic aortic aneurysm measuring 4.1 cm. In the ED patient administered 1 L normal saline, maintenance IV fluid, Zofran 4 mg IV x1, morphine 2 mg IV x2, morphine 4 mg IV x1, Dilaudid 1 mg IV x1. ED physician did discuss case with milieu therapist. COUNTS INCLUDE 234 BEDS AT THE [facility] Medical History (Updated 12/05/22 @ 03:[address] Tash Noriega MD) Ampulla of Vater mass Arthritis Hiatal hernia with GERD Non-smoker Wears glasses Home Medications acetaminophen 325 mg capsule (Tylenol) 325 mg PO Q6H PRN Pain 06/12/22 [History Last Taken Unknown] melatonin 5 mg capsule 5 mg PO QHS PRN Sleep 06/12/22 [History Last Taken Unknown] Allergy/AdvReac Type Severity Reaction Status Date / Time No Known Allergies Allergy Verified 12/05/22 00:31 Family History Sister Breast cancer Thyroid disorder Mother Heart disease Hypertension Thyroid disorder Surgical History H/O shoulder replacement History of Achilles tendon repair History of hernia repair History of microdiscectomy Social History Smoking Status: Never smoker alcohol intake: current details: 1 beer per day substance use type: does not use ROS ROS Narrative Admission Review of Systems: CONSTITUTIONAL: No weight loss, fever, chills, + weakness or fatigue. HEENT: Eyes: No visual loss, blurred vision, double vision or yellow sclerae. Ears, Nose, Throat: No hearing loss, sneezing, congestion, runny nose or sore throat. SKIN: No rash or itching, lesions, wounds. CARDIOVASCULAR: No chest pain, chest pressure or chest discomfort, palpitations, edema, orthopnea, syncopal events. RESPIRATORY: No shortness of breath, cough or sputum, wheezing, hemoptysis. GASTROINTESTINAL: + anorexia, nausea, vomiting, abdominal pain. No diarrhea, melena, BRBPR. GENITOURINARY: No dysuria, frequency, urgency or retention. NEUROLOGICAL: No headache, dizziness, syncope, paralysis, ataxia, numbness or tingling in the extremities, focal weakness, change in bowel or bladder control, seizure. MUSCULOSKELETAL: + muscle, back pain, joint pain or stiffness. HEMATOLOGIC: No anemia, bleeding or bruising. LYMPHATICS: No enlarged nodes. No history of splenectomy. PSYCHIATRIC: No history of depression or anxiety. ENDOCRINOLOGIC: No reports of sweating, cold or heat intolerance. No polyuria or polydipsia. ALLERGIES: No history of asthma, hives, eczema or rhinitis. Vital Signs Vital Signs Vital Signs: 12/05/22 00:27 Temperature 97.7 F L Temperature Source Oral Pulse Rate 70 Respiratory Rate 15 Blood Pressure 162/97 H Blood Pressure Mean 118 Pulse Ox 93 Oxygen Delivery Method Room Air Physical Exam Narrative Physical Examination: General: Awake, alert, oriented x 3 and cooperative, laying in the ED bed, uncomfortable appearing, fatigued. Skin: Normal color, normal turgor, no icterus, no cyanosis. HEENT: AT/NC, EOMI, PERRLA, dry MM, no carotid bruits or JVD noted. Lungs: Mildly diminished, greater bases, proper effort, no rales, ronchi or wheezing. Heart: Regular rate and rhythm; no gallop, rub audible. Abdomen: Soft, significant severe discomfort with palpation, voluntary guarding, worse right upper quadrant and epigastric region, no obvious distention, mildly hyperactive bowel sounds, difficulty assessing HSM secondary to severity of pain. Extremities: No cyanosis, clubbing, or edema. Neurological: Patient awake, alert, oriented as noted, cognitive function intact; pupils equally reactive to light and accommodation, cranial nerves II- XII grossly normal, moving all 4 extremities, no focal deficits, strength severely global decrease secondary to acute presentation Psychiatric: Affect appears fatigued, uncomfortable, no acute evidence of depressive or anxiety feelings. Results Lab / Micro Data Result Diagrams: 12/05/22 00:40 12/05/22 00:40 Labs: Laboratory Results - last 24 hr 12/05/22 00:40: WBC 9.4, RBC 5.03, Hgb 15.2, Hct 45.5, MCV 90.5, MCH 30.2, MCHC 33.4, RDW Std Deviation 44.3 H, RDW Coeff of Precious 13.3, Plt Count 293, MPV 10.5, Immature Gran % (Auto) 0.200, Neut % (Auto) 87.5 H, Lymph % (Auto) 7.1 L, Keith % (Auto) 5.1, Eos % (Auto) 0.0, Baso % (Auto) 0.1, Absolute Neuts (auto) 8.2 H, Absolute Lymphs (auto) 0.67 L, Nucleated RBC % 0 12/05/22 00:40: Sodium 136, Potassium 4.2, Chloride 106, Carbon Dioxide 24.0, Anion Gap 6, BUN 20 H, Creatinine 1.21, Est GFR (MDRD) Af Amer 77, Est GFR (MDRD) Non-Af 63, BUN/Creatinine Ratio 16.5, Glucose 200 H, Calcium 9.9, Total Bilirubin 2.60 H, Direct Bilirubin 1.33 H, AST 53 H, ALT 50, Alkaline Phosphatase 114, Total Protein 7.6, Albumin 4.0, Globulin 3.6, Lipase > 5000 H 12/05/22 01:50: Lactic Acid 1.5 Radiology Impression Abdomen/Pelvis CT 12/05/22 01:29 IMPRESSION: 1. Peripancreatic inflammatory changes and ductal dilatation, consistent with acute pancreatitis. Correlate with lipase. 2. CBD stent in place. 3. Trace gas in the gallbladder. 4. Scattered colonic diverticulosis without discrete evidence of acute diverticulitis. 5. Mild ascending thoracic aortic aneurysm measuring 4.1 cm. Electronically Signed: Kev Snyder MD at 2:41 EDT , Chest X-Ray 12/05/22 01:29 IMPRESSION: No evidence of acute cardiopulmonary disease. Electronically Signed: Juan Presley DO at 2:45 EDT , Assessment & Plan Assessment/Plan (1) Acute pancreatitis: PLAN: Plan The patient is a 67 y/o M w/ PMHx: GERD w/ hiatal hernia, 12/04/[address] 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 #1. Acute pancreatitis w/ abdominal pain, N/V secondary to recent EGD interventions with sphincterotomy, dilation and temporary duct placement with evidence during EGD of choledocholithiasis: Will admit to medical surgical floor, maintain on IVFs, NPO, maintain on IV PPI, IV/po pain control, trend lipase, CMP. We will continue consultation with gastroenterology. Given this presentation and choledocholithiasis evident on EGD certainly would be appropriate once pancreatitis has calmed to have patient evaluated by general surgery. #2. Hyperbilirubinemia, elevated LFT: Admission CMP with T. bili 2.60, D bili 1.133, AST/ALT 53/50, likely secondary to recent endoscopic intervention with ERCP with sphincterotomy and stent placement resulting in acute pancreatitis concurrently as noted number 1, continue to treat as noted, repeat CMP in AM. #3. Hyperglycemia with no diabetic history: Glucose 200, will obtain hemoglobin A1c to be cautious, currently n.p.o. status. #4. Incidental ascending thoracic aortic aneurysm: CT imaging with noted mild ascending thoracic aortic aneurysm measuring 4.1 cm, will benefit at discharge for follow-up with vascular surgery for continued evaluation and monitoring. #5. Elevated BP without hypertensive diagnosis: BP above goal upon ED present ation, likely related with pain given acute presentation number 1, continue to monitor and if becomes consistent with hypertension add oral regimen, as needed IV hydralazine in interim. #6. GERD with hiatal hernia: We will maintain on IV PPI. #7. DVT prophylaxis: SCDs, hold chemoprophylaxis in case of intervention needs per GI. Admission Evaluation Time spent evaluating chart, patient history, patient evaluation, care planning and discussion with specialists: 60 minutes. Charges/Coding Visit Charges Inpatient E&M: 20803 Init Hosp L2
[2022-12-05] MEDS: proCHLORPERazine 10 MG/2 ML Vial 5 MG IV (06:25)
[2022-12-05] MEDS: HYDROmorphone 0.5 MG/0.5 ML SYRINGE IV (06:26)
[2022-12-05] MEDS: 0.9% Normal Saline 1,000 ML 150 ML IV (07:51)
--- NOTE | 2022-12-05 10:49 | CASEMGMT ---
Addendum entered by Macarena Chase 12/05/22 14:00: BALTAZAR FERGUSON Assessment: Face to Face with pt for initial transition planning/care coordination assessment. BALTAZAR FERGUSON introduced self and role at [facility], pt voices understanding and consents to his answering assessment questions. Pt is A/O x4. Assessment completed with . Care providers, pharmacy, and demographics verified/updated. Admitting Dx: acute pancreatitis s/p recent EGD with intervention PCP:Hamzah Specialists:Friend, GI; Mohini and cony Bansal Preferred Pharmacy: [facility] Retail Insurance: [employer], MMO Prescription Benefit: yes LNOK: [place], Living Arrangements: Pt lives with in a two story home with a ramp to enter. Pt reports he is I in ADL's. Transportation: Pt drives self and denies concerns with transportation. DME/HHC/SNF: Pt has access to cane and walker at home but does not use AD typically. Pt does not have any hx of HHC or SNF stays. Pt states no concerns with going home at time of dc. Pt states no further concerns/needs. CM to follow. Advised pt to ask CM if any further question/concerns/needs arise, voices understanding. Pt Goal: Home Plan: Home Original Note: BALTAZAR FERGUSON into pt room, pt requests for BALTAZAR FERGUSON to come back when his is present for assessment as he is trying to rest. BALTAZAR FERGUSON to check back.
[2022-12-05] MEDS: hydrALAZINE 20 MG/ML Vial 10 MG IV (12:17)
[2022-12-05] MEDS: oxyCODONE 5 MG Tablet PO ×2 (13:18→23:07)
[2022-12-05] MEDS: 0.9% Normal Saline 1,000 ML 300 ML IV ×2 (14:57→17:58)
[2022-12-05 16:06] LABS: Absolute Lymphocyte Count 0.59 X10^3/uL (0.83-4.51); Absolute Neutrophil Count 12.1 X10^3/uL (2.0-7.7); Basophil# 0.02 X10^3/uL; Basophil% 0.1 % (0-1); Hematocrit 44.4 % (40-54); Hemoglobin 14.4 g/dL (13.0-16.5); Lymphocyte # 0.59 X10^3/ul (0.83-4.51); Lymphocyte % 4.2 % (19-41); Mean Corp Hgb Conc 32.4 g/dL (32-36); Mean Corpuscular Hgb 30.2 pg (27.0-32.0); Mean Corpuscular Volume 93.1 fL (80-94); Mean Platelet Vol. 9.9 fl (6.2-12.0); Monocyte# 1.15 X10^3/uL; Monocyte% 8.3 % (0-10); NRBC Flagged by Analyzer 0 % (0-5); Neutrophil # 12.08 X10^3/uL (2.7-7.7); POSITIVE DIFFERENTIAL YES; Platelet Count 247 K/mm3 (150-450); RBC Distribution Width CV 13.4 % (11.6-14.6); Red Blood Count 4.77 M/mm3 (4.6-6.2); White Blood Count 13.9 K/mm3 (4.4-11.0)
[2022-12-05 16:15] LABS: Erythrocyte Sedimentation Rate 6 mm/hr (0-20)
[2022-12-05 16:16] LABS: Differential Indicated SCAN CRITERIA MET
--- NOTE | 2022-12-05 16:23 | EX.PCM.CON.G ---
HPI Consult Data Date of Consult: 12/05/22 HPI Narrative Reason for Consultation: pancreatitis HPI Narrative: TYLER AYALA, is a 67 M who presents with worsening abdominal pain. He has a past medical history of mild gastroesophageal reflux disease, hiatal hernia who underwent evaluation as an outpatient and was determined to have an abnormal HIDA scan possibly secondary to sphincter of Oddi syndrome. He underwent an upper endoscopy by Dr. Javed Stanton and was discovered to have an ampullary lesion. He underwent an embolectomy with stent placement in the common bile duct yesterday. He comes back in today with right upper quadrant pain. Biochemical work-up shows evidence of acute pancreatitis. 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 ERCP- notable for mass in the ampulla with suspected adenoma with biopsies taken, evidence of choledocholithiasis with complete removal with biliary sphincterotomy and balloon extraction performed and a temporary stent placed in the common bile duct? His current CT scan shows acute pancreatitis. Biochemical work-up does show mildly elevated bilirubin, alkaline phosphatase and AST consistent with inflammation from acute pancreatitis. His current lipase is 5000. [facility] Medical History (Updated 12/05/22 @ 05:[address] Oziel Garcias, DO) Ampulla of Vater mass Arthritis Hiatal hernia with GERD Non-smoker Wears glasses Home Medications acetaminophen 325 mg capsule (Tylenol) 325 mg PO Q6H PRN Pain 06/12/22 [History Last Taken Unknown] melatonin 5 mg capsule 5 mg PO QHS PRN Sleep 06/12/22 [History Last Taken Unknown] pantoprazole 20 mg tablet,delayed release 20 mg PO DAILY stomach 12/05/22 [History Last Taken Unknown] Allergy/AdvReac Type Severity Reaction Status Date / Time No Known Allergies Allergy Verified 12/05/22 00:31 Family History Sister Breast cancer Thyroid disorder Mother Heart disease Hypertension Thyroid disorder Surgical History H/O shoulder replacement History of Achilles tendon repair History of hernia repair History of microdiscectomy Social History Smoking Status: Never smoker alcohol intake: current details: 1 beer per day substance use type: does not use ROS ROS Narrative Admission Review of Systems: CONSTITUTIONAL: No weight loss, fever, chills, + weakness or fatigue. HEENT: Eyes: No visual loss, blurred vision, double vision or yellow sclerae. Ears, Nose, Throat: No hearing loss, sneezing, congestion, runny nose or sore throat. SKIN: No rash or itching, lesions, wounds. CARDIOVASCULAR: No chest pain, chest pressure or chest discomfort, palpitations, edema, orthopnea, syncopal events. RESPIRATORY: No shortness of breath, cough or sputum, wheezing, hemoptysis. GASTROINTESTINAL: + anorexia, nausea, vomiting, abdominal pain. No diarrhea, melena, BRBPR. GENITOURINARY: No dysuria, frequency, urgency or retention. NEUROLOGICAL: No headache, dizziness, syncope, paralysis, ataxia, numbness or tingling in the extremities, focal weakness, change in bowel or bladder control, seizure. MUSCULOSKELETAL: + muscle, back pain, joint pain or stiffness. HEMATOLOGIC: No anemia, bleeding or bruising. LYMPHATICS: No enlarged nodes. No history of splenectomy. PSYCHIATRIC: No history of depression or anxiety. ENDOCRINOLOGIC: No reports of sweating, cold or heat intolerance. No polyuria or polydipsia. ALLERGIES: No history of asthma, hives, eczema or rhinitis. Physical Exam Narrative Physical Examination: General: Awake, alert, oriented x 3 and cooperative, laying in the ED bed, uncomfortable appearing, fatigued. Skin: Normal color, normal turgor, no icterus, no cyanosis. HEENT: AT/NC, EOMI, PERRLA, dry MM, no carotid bruits or JVD noted. Lungs: Mildly diminished, greater bases, proper effort, no rales, ronchi or wheezing. Heart: Regular rate and rhythm; no gallop, rub audible. Abdomen: Soft, significant severe discomfort with palpation, voluntary guarding, worse right upper quadrant and epigastric region, no obvious distention, mildly hyperactive bowel sounds, difficulty assessing HSM secondary to severity of pain. Extremities: No cyanosis, clubbing, or edema. Neurological: Patient awake, alert, oriented as noted, cognitive function intact; pupils equally reactive to light and accommodation, cranial nerves II-XII grossly normal, moving all 4 extremities, no focal deficits, strength severely global decrease secondary to acute presentation Psychiatric: Affect appears fatigued, uncomfortable, no acute evidence of depressive or anxiety feelings. Lab / Micro Data Result Diagrams: 12/05/22 15:55 12/05/22 00:40 Labs: Laboratory Results - last 24 hr 12/05/22 00:40: WBC 9.4, RBC 5.03, Hgb 15.2, Hct 45.5, MCV 90.5, MCH 30.2, MCHC 33.4, RDW Std Deviation 44.3 H, RDW Coeff of Precious 13.3, Plt Count 293, MPV 10.5, Immature Gran % (Auto) 0.200, Neut % (Auto) 87.5 H, Lymph % (Auto) 7.1 L, Clinch % (Auto) 5.1, Eos % (Auto) 0.0, Baso % (Auto) 0.1, Absolute Neuts (auto) 8.2 H, Absolute Lymphs (auto) 0.67 L, Nucleated RBC % 0 12/05/22 00:40: Sodium 136, Potassium 4.2, Chloride 106, Carbon Dioxide 24.0, Anion Gap 6, BUN 20 H, Creatinine 1.21, Est GFR (MDRD) Af Amer 77, Est GFR (MDRD) Non-Af 63, BUN/Creatinine Ratio 16.5, Glucose 200 H, Calcium 9.9, Total Bilirubin 2.60 H, Direct Bilirubin 1.33 H, AST 53 H, ALT 50, Alkaline Phosphatase 114, Total Protein 7.6, Albumin 4.0, Globulin 3.6, Lipase > 5000 H 12/05/22 01:50: Lactic Acid 1.5 12/05/22 15:55: WBC 13.9 H, RBC 4.77, Hgb 14.4, Hct 44.4, MCV 93.1, MCH 30.2, MCHC 32.4, RDW Std Deviation 46.0 H, RDW Coeff of Precious 13.4, Plt Count 247, MPV 9.9, Immature Gran % (Auto) 0.400, Neut % (Auto) 87.0 H, Lymph % (Auto) 4.2 L, Clinch % (Auto) 8.3, Eos % (Auto) 0.0, Baso % (Auto) 0.1, Absolute Neuts (auto) 12.1 H, Absolute Lymphs (auto) 0.59 L, Nucleated RBC % 0 Radiology Impression Abdomen/Pelvis CT 12/05/22 01:29 IMPRESSION: 1. Peripancreatic inflammatory changes and ductal dilatation, consistent with acute pancreatitis. Correlate with lipase. 2. CBD stent in place. 3. Trace gas in the gallbladder. 4. Scattered colonic diverticulosis without discrete evidence of acute diverticulitis. 5. Mild ascending thoracic aortic aneurysm measuring 4.1 cm. Electronically Signed: Kev Snyder MD at 2:41 EDT , Chest X-Ray 12/05/22 01:29 IMPRESSION: No evidence of acute cardiopulmonary disease. Electronically Signed: Juan Presley DO at 2:45 EDT , Assessment & Plan Assessment/Plan (1) Acute pancreatitis: PLAN: Plan Acute pancreatitis status post ERCP with brushings of biliary stricture, biliary sludge and small stones removed and ampullectomy of large ampullary adenomatous mass. I repeated his hematocrit and hemoglobin after increasing his IV fluids up to 300 mL an hour. He will do the best if we can get his hematocrit down to 35 as soon as possible. He is experiencing some tachycardia and hypertension likely secondary to abdominal pain. I will add Reglan 2.5 mg every 6 hours [id number] because acute pancreatitis expressed redheaded of pancreas is associated with gastroparesis and paralytic ileus. He can have liquid diet. I gave him some order which is at his bedside. Hopefully we able to get the results from the brushings in ampullectomy. Continue pain medicine and bowel regimen. Charges/Coding Visit Charges Inpatient E&M: 47905 Init Hosp L3
[2022-12-05 16:28] LABS: Differential Comment SCANNED
[2022-12-05 16:45] LABS: ALB/GLOB Ratio 1.1 RATIO (0.9-2.4); AST(SGOT) 23 U/L (15-37); Alanine Aminotransfer ALT/SGPT 36 U/L (16-61); Albumin, Serum 3.5 g/dL (3.2-5.0); Alkaline Phosphatase 89 U/L (45-117); Anion Gap 3 (5-15); BUN 14 mg/dL (7-18); CRP 9.77 mg/L (0.0-3.0); Calcium,Total 8.6 mg/dL (8.5-10.1); Chloride 112 mmol/L (98-107); EST Glomerular Filtration Rate 79 mL/min (>60); Est Glom Filt Rate - Afr Amer 96 mL/min (>60); Estimated Creatinine Clearance 71.68 ml/min; Globulin 3.2 g/dL (2.2-4.2); Glucose 116 mg/dL (74-106); Potassium 3.9 mmol/L (3.5-5.1); Protein, Total 6.7 g/dL (6.4-8.2); Sodium Level 138 mmol/L (136-145)
--- NOTE | 2022-12-05 16:47 | PN_ITS ---
Subjective Subjective Patient seen and examined. He was complaining of abdominal pain. He denied any nausea or vomiting. Review of systems otherwise negative. He has otherwise remained hemodynamically stable. Objective Data Objective Data Vital Signs: Vital Signs Temp Pulse Resp BP Pulse Ox O2 Del Method 97.6 F L 106 H 18 163/103 H 93 Room Air 12/05/22 14:45 12/05/22 14:45 12/05/22 14:45 12/05/22 14:45 12/05/22 14:45 12/05/22 14:45 Oxygen Delivery Method Room Air Weight: 195 lb 3 oz Body Mass Index (BMI) 28.8 Intake & Output: Intake and Output for Last 24 Hours 12/03/22 12/04/22 12/05/22 23:59 23:59 23:59 Intake Total 3606.67 / 3606.67 Output Total 100 / 100 Balance 3506.67 / 3506.67 Lab / Micro Data Result Diagrams: 12/05/22 15:55 12/05/22 15:55 Labs: Laboratory Results - last 24 hr 12/05/22 00:40: WBC 9.4, RBC 5.03, Hgb 15.2, Hct 45.5, MCV 90.5, MCH 30.2, MCHC 33.4, RDW Std Deviation 44.3 H, RDW Coeff of Precious 13.3, Plt Count 293, MPV 10.5, Immature Gran % (Auto) 0.200, Neut % (Auto) 87.5 H, Lymph % (Auto) 7.1 L, Cocke % (Auto) 5.1, Eos % (Auto) 0.0, Baso % (Auto) 0.1, Absolute Neuts (auto) 8.2 H, Absolute Lymphs (auto) 0.67 L, Nucleated RBC % 0 12/05/22 00:40: Sodium 136, Potassium 4.2, Chloride 106, Carbon Dioxide 24.0, Anion Gap 6, BUN 20 H, Creatinine 1.21, Est GFR (MDRD) Af Amer 77, Est GFR (MDRD) Non-Af 63, BUN/Creatinine Ratio 16.5, Glucose 200 H, Calcium 9.9, Total Bilirubin 2.60 H, Direct Bilirubin 1.33 H, AST 53 H, ALT 50, Alkaline Phosphatase 114, Total Protein 7.6, Albumin 4.0, Globulin 3.6, Lipase > 5000 H 12/05/22 01:50: Lactic Acid 1.5 12/05/22 15:55: WBC 13.9 H, RBC 4.77, Hgb 14.4, Hct 44.4, MCV 93.1, MCH 30.2, MCHC 32.4, RDW Std Deviation 46.0 H, RDW Coeff of Precious 13.4, Plt Count 247, MPV 9.9, Immature Gran % (Auto) 0.400, Neut % (Auto) 87.0 H, Lymph % (Auto) 4.2 L, Cocke % (Auto) 8.3, Eos % (Auto) 0.0, Baso % (Auto) 0.1, Absolute Neuts (auto) 12.1 H, Absolute Lymphs (auto) 0.59 L, Nucleated RBC % 0, Differential Comment SCANNED, ESR 6 12/05/22 15:55: Sodium 138, Potassium 3.9, Chloride 112 H, Carbon Dioxide 23.0, Anion Gap 3 L, BUN 14, Creatinine 1.00, Estim Creat Clear Calc 71.68, Est GFR (MDRD) Af Amer 96, Est GFR (MDRD) Non-Af 79, BUN/Creatinine Ratio 14.0, Glucose 116 H, Calcium 8.6, Total Bilirubin 0.80, AST 23, ALT 36, Alkaline Phosphatase 89, C-React Prot Ext Range 9.77 H, Total Protein 6.7, Albumin 3.5, Globulin 3.2, Albumin/Globulin Ratio 1.1 Radiography Diagnostic Testing: Radiology Impression Abdomen/Pelvis CT 12/05/22 01:29 IMPRESSION: 1. Peripancreatic inflammatory changes and ductal dilatation, consistent with acute pancreatitis. Correlate with lipase. 2. CBD stent in place. 3. Trace gas in the gallbladder. 4. Scattered colonic diverticulosis without discrete evidence of acute diverticulitis. 5. Mild ascending thoracic aortic aneurysm measuring 4.1 cm. Electronically Signed: Kev nSyder MD at 2:41 EDT , Chest X-Ray 12/05/22 01:29 IMPRESSION: No evidence of acute cardiopulmonary disease. Electronically Signed: Juan Presley DO at 2:45 EDT , Physical Exam Const alert and oriented x3 Constitutional Narrative: looked to be in mild distress due to abdominal pain HEENT normocephalic, head/scalp atraumatic, moist oral mucous membranes and oropharynx normal Eyes PERRL and EOMs intact bilaterally Neck no lymphadenopathy and supple General: trachea midline Lymph Lymphatic: no lymphadenopathy noted and no lymphedema noted Resp normal respiratory effort, normal air movement and clear to auscultation phong aterally Cardio regular rate, regular rhythm, S1 normal heart sound, S2 normal heart sound and no murmurs GI normal to inspection, nondistended, normoactive bowel sounds GI Narrative: moderate epigastric tenderness, no guarding or rebound tenderness Extremity normal capillary refill, no clubbing, cyanosis or edema and no calf tenderness Skin General Skin Exam: no breakdown Neuro CN's II-XII intact bilaterally, no focal motor deficits, no sensory deficits noted and deep tendon reflexes 2+ bilaterally Motor Exam: strength 5/5 throughout Psych thought process normal and cooperative Appearance: appropriate Assessment & Plan Assessment/Plan (1) Intractable abdominal pain: (2) Acute pancreatitis: PLAN: Plan #Acute pancreatitis * Had EGD by general surgery on account of GERD and abnormal HIDA scan which was thought to be due to sphincter of Oddi syndrome. During ERCO he was discovered to have an ampullary lesion and had an embolectomy with stent placement in the common bile duct. Subsequently developed right upper quadrant pain and was found to have acute pancreatitis. * Currently NPO. On IV Dilaudid. Dilaudid dose increased to 1 mg every 2 hours as needed. * Gastroenterology consulted. Continue aggressive hydration with IV fluids. * Trend bilirubin, ALP and AST * on reglan. * #Ampullary mass * . To have an abnormal HIDA scan. 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 Biliary sludge and small stones were removed. * to follow up with general surgery on outpatient basis * pathology report pedning * DVT prophylaxis: lovenox Charges/Coding Visit Charges Inpatient E&M: 86534 Subs Hosp L2
[2022-12-05 16:50] LABS: Lipase 1585 U/L (13-75)
[2022-12-05] MEDS: Metoclopramide 10 MG/2 ML Vial 2.5 MG IV ×2 (17:53→23:04)
[2022-12-05] MEDS: Mag Hydrox/Al Hydrox/Simeth 30 ML UDC PO (21:40)
[2022-12-05] MEDS: Acetaminophen 325 MG Tablet 650 MG PO (23:06)
[2022-12-05] MEDS: Senna/Docusate Sodium 1 Tablet 2 TABLET PO (23:07)
[2022-12-06 02:26] VITALS: BP 150/95; PULSE 96; RESP 16; TEMP 37; O2SAT 92
[2022-12-06] MEDS: oxyCODONE 5 MG Tablet PO ×4 (02:57→20:46)
[2022-12-06] MEDS: Acetaminophen 325 MG Tablet 650 MG PO ×3 (02:57→17:39)
[2022-12-06] MEDS: Mag Hydrox/Al Hydrox/Simeth 30 ML UDC PO (02:58)
[2022-12-06] MEDS: 0.9% Normal Saline 1,000 ML 200 ML IV ×2 (03:00→07:39)
[2022-12-06 06:00] VITALS: BMI 29.9
[2022-12-06] MEDS: Enoxaparin 40 MG/0.4 ML Syringe SC (06:04)
[2022-12-06] MEDS: Metoclopramide 10 MG/2 ML Vial 2.5 MG IV ×3 (06:05→17:37)
[2022-12-06 06:20] LABS: Absolute Lymphocyte Count 1.16 X10^3/uL (0.83-4.51); Basophil# 0.04 X10^3/uL; Basophil% 0.2 % (0-1); Hematocrit 40.2 % (40-54); Hemoglobin 13.2 g/dL (13.0-16.5); Lymphocyte # 1.16 X10^3/ul (0.83-4.51); Mean Corp Hgb Conc 32.8 g/dL (32-36); Mean Corpuscular Hgb 30.3 pg (27.0-32.0); Mean Corpuscular Volume 92.2 fL (80-94); Mean Platelet Vol. 10.3 fl (6.2-12.0); Monocyte% 7.2 % (0-10); NRBC Flagged by Analyzer 0 % (0-5); Neutrophil % 84.6 % (47-70); Platelet Count 230 K/mm3 (150-450); RBC Distribution Width CV 13.7 % (11.6-14.6); RBC Distribution Width SD 46.6 fl (35.1-43.9); Red Blood Count 4.36 M/mm3 (4.6-6.2); White Blood Count 16.6 K/mm3 (4.4-11.0)
[2022-12-06 07:10] LABS: ALB/GLOB Ratio 1.1 RATIO (0.9-2.4); AST(SGOT) 24 U/L (15-37); Alanine Aminotransfer ALT/SGPT 28 U/L (16-61); Albumin, Serum 3.3 g/dL (3.2-5.0); Alkaline Phosphatase 75 U/L (45-117); Anion Gap 5 (5-15); BUN 12 mg/dL (7-18); BUN/Creat Ratio 13.1 RATIO (10-20); Calcium,Total 8.3 mg/dL (8.5-10.1); Chloride 111 mmol/L (98-107); Creatinine, Serum 0.92 mg/dL (0.70-1.30); EST Glomerular Filtration Rate 87 mL/min (>60); Est Glom Filt Rate - Afr Amer 105 mL/min (>60); Estimated Creatinine Clearance 77.92 ml/min; Globulin 3.1 g/dL (2.2-4.2); Glucose 95 mg/dL (74-106); Lipase 1175 U/L (13-75); Potassium 3.7 mmol/L (3.5-5.1); Protein, Total 6.4 g/dL (6.4-8.2); Sodium Level 137 mmol/L (136-145)
[2022-12-06] MEDS: HYDROmorphone 1 MG/ML Syringe IV ×3 (09:34→22:04)
[2022-12-06 09:39] VITALS: BP 147/96; PULSE 78; RESP 16; TEMP 36.8; O2SAT 92
[2022-12-06] MEDS: Docusate Sodium 100 MG/10 ML UDC PO (11:13)
--- NOTE | 2022-12-06 11:17 | PCM.PROGNOTE ---
Subjective Subjective Patient seen and examined. Pain was better controlled. He is being started on clear liquid diet, as he tolerated drinking water. HE has remained hemodynamically stable. Objective Data Objective Data Vital Signs: Vital Signs Temp Pulse Resp BP Pulse Ox O2 Del Method 98.3 F 78 16 147/96 H 92 Room Air 12/06/22 09:39 12/06/22 09:39 12/06/22 09:39 12/06/22 09:39 12/06/22 09:39 12/06/22 09:39 Oxygen Delivery Method Room Air Weight: 203 lb 0.732 oz Body Mass Index (BMI) 29.9 Intake & Output: Intake and Output for Last 24 Hours 12/04/22 12/05/22 12/06/22 23:59 23:59 23:59 Intake Total 5741.67 / 5941.67 2126.67 / 2126.67 Output Total 350 / 850 1150 / 1150 Balance 5391.67 / 5091.67 976.67 / 976.67 Lab / Micro Data Result Diagrams: 12/06/22 05:45 12/06/22 05:45 Labs: Laboratory Results - last 24 hr 12/05/22 15:55: WBC 13.9 H, RBC 4.77, Hgb 14.4, Hct 44.4, MCV 93.1, MCH 30.2, MCHC 32.4, RDW Std Deviation 46.0 H, RDW Coeff of Precious 13.4, Plt Count 247, MPV 9.9, Immature Gran % (Auto) 0.400, Neut % (Auto) 87.0 H, Lymph % (Auto) 4.2 L, [place] % (Auto) 8.3, Eos % (Auto) 0.0, Baso % (Auto) 0.1, Absolute Neuts (auto) 12.1 H, Absolute Lymphs (auto) 0.59 L, Nucleated RBC % 0, Differential Comment SCANNED, ESR 6 12/05/22 15:55: Sodium 138, Potassium 3.9, Chloride 112 H, Carbon Dioxide 23.0, Anion Gap 3 L, BUN 14, Creatinine 1.00, Estim Creat Clear Calc 71.68, Est GFR (MDRD) Af Amer 96, Est GFR (MDRD) Non-Af 79, BUN/Creatinine Ratio 14.0, Glucose 116 H, Calcium 8.6, Total Bilirubin 0.80, AST 23, ALT 36, Alkaline Phosphatase 89, C-React Prot Ext Range 9.77 H, Total Protein 6.7, Albumin 3.5, Globulin 3.2, Albumin/Globulin Ratio 1.1 12/05/22 15:55: Lipase 1585 H 12/06/22 05:45: WBC 16.6 H, RBC 4.36 L, Hgb 13.2, Hct 40.2, MCV 92.2, MCH 30.3, MCHC 32.8, RDW Std Deviation 46.6 H, RDW Coeff of Precious 13.7, Plt Count 230, MPV 10.3, Immature Gran % (Auto) 1.000 H, Neut % (Auto) 84.6 H, Lymph % (Auto) 7.0 L, [place] % (Auto) 7.2, Eos % (Auto) 0.0, Baso % (Auto) 0.2, Absolute Neuts (auto) 14.0 H, Absolute Lymphs (auto) 1.16, Nucleated RBC % 0 12/06/22 05:45: Sodium 137, Potassium 3.7, Chloride 111 H, Carbon Dioxide 21.0, Anion Gap 5, BUN 12, Creatinine 0.92, Estim Creat Clear Calc 77.92, Est GFR (MDRD) Af Amer 105, Est GFR (MDRD) Non-Af 87, BUN/Creatinine Ratio 13.1, Glucose 95, Calcium 8.3 L, Total Bilirubin 1.10 H, AST 24, ALT 28, Alkaline Phosphatase 75, Total Protein 6.4, Albumin 3.3, Globulin 3.1, Albumin/Globulin Ratio 1.1, Lipase 1175 H 12/06/22 05:45: Hemoglobin A1c 5.0 Physical Exam Const alert and oriented x3 Constitutional Narrative: looks a bit more comfortable today HEENT normocephalic, head/scalp atraumatic, moist oral mucous membranes and oropharynx normal Eyes PERRL and EOMs intact bilaterally Neck no lymphadenopathy and supple General: trachea midline Lymph Lymphatic: no lymphadenopathy noted and no lymphedema noted Resp normal respiratory effort, normal air movement and clear to auscultation bilaterally Cardio regular rate, regular rhythm, S1 normal heart sound, S2 normal heart sound and no murmurs GI normal to inspection, nondistended, normoactive bowel sounds GI Narrative: epigastric tenderness has improved Extremity normal capillary refill, no clubbing, cyanosis or edema and no calf tenderness Skin General Skin Exam: no breakdown Neuro CN's II-XII intact bilaterally, no focal motor deficits, no sensory deficits noted and deep tendon reflexes 2+ bilaterally Motor Exam: strength 5/5 throughout Psych thought process normal and cooperative Appearance: appropriate Assessment & Plan Assessment/Plan (1) Intractable abdominal pain: (2) Acute pancreatitis: PLAN: Plan #Acute pancreatitis likely iatrogenic as a result of the ERCP he had for an abnormal HIDA scan. now started on clear liquid diet. on IV dilaudid. also on [facility] gastroenterology on board. 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 Biliary sludge and small stones were removed. to follow up with general surgery on outpatient basis pathology report pending DVT prophylaxis: lovenox Charges/Coding Visit Charges Inpatient E&M: 62993 Subs Hosp L2
[2022-12-06] MEDS: 0.9% Normal Saline 1,000 ML 250 ML IV ×3 (12:53→20:33)
--- NOTE | 2022-12-06 13:08 | PCM.PROGNOTE ---
Subjective Subjective Patient still has a lot of abdominal pain. He rates his pain anywhere from a 5 out of 10 to a 8 out of 10. He has been on 200 mL an hour of normal saline. He has not had a bowel movement. He does feel very bloated and distended. He denies any nausea. He denies any fevers. He has been only ingesting water. Objective Data Objective Data Vital Signs: Vital Signs Temp Pulse Resp BP Pulse Ox O2 Del Method 98.3 F 78 16 147/96 H 92 Room Air 12/06/22 09:39 12/06/22 09:39 12/06/22 09:39 12/06/22 09:39 12/06/22 09:39 12/06/22 09:39 Oxygen Delivery Method Room Air Weight: 203 lb 0.732 oz Body Mass Index (BMI) 29.9 Intake & Output: Intake and Output for Last 24 Hours 12/04/22 12/05/22 12/06/22 23:59 23:59 23:59 Intake Total 5741.67 / 5941.67 3126.67 / 3126.67 Output Total 350 / 850 1150 / 1150 Balance 5391.67 / 5091.67 1975. / 1975. Lab / Micro Data Result Diagrams: 12/06/22 05:45 12/06/22 05:45 Labs: Laboratory Results - last 24 hr 12/05/22 15:55: WBC 13.9 H, RBC 4.77, Hgb 14.4, Hct 44.4, MCV 93.1, MCH 30.2, MCHC 32.4, RDW Std Deviation 46.0 H, RDW Coeff of Precious 13.4, Plt Count 247, MPV 9.9, Immature Gran % (Auto) 0.400, Neut % (Auto) 87.0 H, Lymph % (Auto) 4.2 L, [place] % (Auto) 8.3, Eos % (Auto) 0.0, Baso % (Auto) 0.1, Absolute Neuts (auto) 12.1 H, Absolute Lymphs (auto) 0.59 L, Nucleated RBC % 0, Differential Comment SCANNED, ESR 6 12/05/22 15:55: Sodium 138, Potassium 3.9, Chloride 112 H, Carbon Dioxide 23.0, Anion Gap 3 L, BUN 14, Creatinine 1.00, Estim Creat Clear Calc 71.68, Est GFR (MDRD) Af Amer 96, Est GFR (MDRD) Non-Af 79, BUN/Creatinine Ratio 14.0, Glucose 116 H, Calcium 8.6, Total Bilirubin 0.80, AST 23, ALT 36, Alkaline Phosphatase 89, C-React Prot Ext Range 9.77 H, Total Protein 6.7, Albumin 3.5, Globulin 3.2, Albumin/Globulin Ratio 1.1 12/05/22 15:55: Lipase 1585 H 12/06/22 05:45: WBC 16.6 H, RBC 4.36 L, Hgb 13.2, Hct 40.2, MCV 92.2, MCH 30.3, MCHC 32.8, RDW Std Deviation 46.6 H, RDW Coeff of Precious 13.7, Plt Count 230, MPV 10.3, Immature Gran % (Auto) 1.000 H, Neut % (Auto) 84.6 H, Lymph % (Auto) 7.0 L, [place] % (Auto) 7.2, Eos % (Auto) 0.0, Baso % (Auto) 0.2, Absolute Neuts (auto) 14.0 H, Absolute Lymphs (auto) 1.16, Nucleated RBC % 0 12/06/22 05:45: Sodium 137, Potassium 3.7, Chloride 111 H, Carbon Dioxide 21.0, Anion Gap 5, BUN 12, Creatinine 0.92, Estim Creat Clear Calc 77.92, Est GFR (MDRD) Af Amer 105, Est GFR (MDRD) Non-Af 87, BUN/Creatinine Ratio 13.1, Glucose 95, Calcium 8.3 L, Total Bilirubin 1.10 H, AST 24, ALT 28, Alkaline Phosphatase 75, Total Protein 6.4, Albumin 3.3, Globulin 3.1, Albumin/Globulin Ratio 1.1, Lipase 1175 H 12/06/22 05:45: Hemoglobin A1c 5.0 Physical Exam Const alert and oriented x3 Constitutional Narrative: looks a bit more comfortable today HEENT normocephalic, head/scalp atraumatic, moist oral mucous membranes and oropharynx normal Eyes PERRL and EOMs intact bilaterally Neck no lymphadenopathy and supple General: trachea midline Lymph Lymphatic: no lymphadenopathy noted and no lymphedema noted Resp normal respiratory effort, normal air movement and clear to auscultation bilaterally Cardio regular rate, regular rhythm, S1 normal heart sound, S2 normal heart sound and no murmurs GI normal to inspection, nondistended, normoactive bowel sounds GI Narrative: epigastric tenderness has improved Extremity normal capillary refill, no clubbing, cyanosis or edema and no calf tenderness Skin General Skin Exam: no breakdown Neuro CN's II-XII intact bilaterally, no focal motor deficits, no sensory deficits noted and deep tendon reflexes 2+ bilaterally Motor Exam: strength 5/5 throughout Psych thought process normal and cooperative Appearance: appropriate Assessment & Plan Assessment/Plan (1) Acute pancreatitis: PLAN: Plan Acute pancreatitis status post ERCP with brushings of biliary stricture, biliary sludge and small stones removed and ampullectomy of large ampullary adenomatous mass. The pathology from the ampullary mass and biliary strictures were precancerous but not cancerous. His hematocrit and hemoglobin are coming down nicely which corresponds to good outcome within the first 24 to 40 hours of treatment for acute pancreatitis. He is at 200 mL an hour of normal saline. I will increase him up to 250. Also recommend Ensure clear p.o. 3 times daily and I will give him 1 dose of Lasix as he has gained about 6 pounds from admission. Increase Reglan up to 5 mg every 6 hours scheduled. Continue bowel regimen. Charges/Coding Visit Charges Inpatient E&M: 73588 [facility] L3
[2022-12-06 14:12] VITALS: BP 161/89; PULSE 79; RESP 16; TEMP 37.7; O2SAT 93
[2022-12-06] MEDS: Furosemide 20 MG/2 ML VIAL 10 MG IV (14:12)
[2022-12-06 14:13] LABS: Erythrocyte Sedimentation Rate 15 mm/hr (0-20)
[2022-12-06] MEDS: Ensure Clear 120 ML Liquid PO (16:28)
[2022-12-06] MEDS: Ondansetron 4 MG/2 ML Vial IV (16:36)
[2022-12-06 18:25] VITALS: TEMP 38.1
[2022-12-06 20:31] VITALS: BP 156/91; PULSE 76; RESP 18; TEMP 36.9; O2SAT 93
[2022-12-07] MEDS: Metoclopramide 10 MG/2 ML Vial 2.5 MG IV ×4 (00:49→17:56)
[2022-12-07] MEDS: 0.9% Normal Saline 1,000 ML 250 ML IV ×4 (00:50→14:23)
[2022-12-07 02:10] VITALS: BP 170/94; PULSE 75; RESP 19; TEMP 36.9; O2SAT 93
[2022-12-07] MEDS: HYDROmorphone 1 MG/ML Syringe IV ×5 (03:17→20:18)
[2022-12-07 04:58] VITALS: BP 160/94
[2022-12-07] MEDS: Enoxaparin 40 MG/0.4 ML Syringe SC (05:00)
[2022-12-07 06:00] VITALS: BMI 29.1
[2022-12-07 06:41] LABS: Absolute Lymphocyte Count 0.91 X10^3/uL (0.83-4.51); Absolute Neutrophil Count 11.2 X10^3/uL (2.0-7.7); Basophil# 0.02 X10^3/uL; Basophil% 0.2 % (0-1); Eosinophil# 0.01 X10^3/uL; Eosinophils% 0.1 % (0-5); Hematocrit 35.7 % (40-54); Hemoglobin 11.7 g/dL (13.0-16.5); Lymphocyte # 0.91 X10^3/ul (0.83-4.51); Lymphocyte % 6.9 % (19-41); Mean Corp Hgb Conc 32.8 g/dL (32-36); Mean Corpuscular Hgb 30.4 pg (27.0-32.0); Mean Corpuscular Volume 92.7 fL (80-94); Mean Platelet Vol. 10.9 fl (6.2-12.0); Monocyte# 0.85 X10^3/uL; Monocyte% 6.5 % (0-10); NRBC Flagged by Analyzer 0 % (0-5); Neutrophil % 85.3 % (47-70); Platelet Count 179 K/mm3 (150-450); RBC Distribution Width CV 13.5 % (11.6-14.6); Red Blood Count 3.85 M/mm3 (4.6-6.2); White Blood Count 13.1 K/mm3 (4.4-11.0)
[2022-12-07 07:22] LABS: Anion Gap 4 (5-15); BUN 9 mg/dL (7-18); BUN/Creat Ratio 12.1 RATIO (10-20); Calcium,Total 7.8 mg/dL (8.5-10.1); Chloride 106 mmol/L (98-107); Creatinine, Serum 0.75 mg/dL (0.70-1.30); EST Glomerular Filtration Rate 111 mL/min (>60); Est Glom Filt Rate - Afr Amer 134 mL/min (>60); Estimated Creatinine Clearance 71.68 ml/min; Glucose 81 mg/dL (74-106); Potassium 3.6 mmol/L (3.5-5.1); Sodium Level 133 mmol/L (136-145)
[2022-12-07 09:21] VITALS: BP 162/95; PULSE 74; RESP 18; TEMP 37.1; O2SAT 96
[2022-12-07] MEDS: 0.9% Saline Lock 10 ML Syringe IV ×4 (11:25→20:18)
[2022-12-07 13:00] LABS: Amylase 349 U/L (25-115); Lipase 112 U/L (13-75)
--- NOTE | 2022-12-07 13:17 | CT_ITS ---
STUDY: CT ABDOMEN AND PELVIS WITH CONTRAST REASON FOR EXAM: Male, 67 years old. Pancreatitis. Prior ERCP and stent placement. Ampullary mass. RADIATION DOSAGE (If Supplied By Facility): CTDIvol = ( 22.39 ) mGy, DLP = ( 1274.87 ) mGycm TECHNIQUE: Transaxial images were obtained from the dome of the diaphragm to the symphysis pubis without oral contrast. IV 100mL Isovue-300 was administered. Sagittal and coronal images were reconstructed. Individualized dose optimization techniques were used for this CT. COMPARISON: Comparison is made with prior study dated December 05, 2022. FINDINGS: There are small bilateral pleural effusions right greater than left with bibasilar atelectasis and/or infiltrate. The visualized portions of the heart are within normal limits. Stable scattered hypodensities in the liver most likely representing tiny cysts. Normal gallbladder and extrahepatic biliary system. A biliary stent is visualized. The distal tip is in the second portion of the duodenum. Normal spleen. There is diffuse enlargement of the pancreas with enrico-pancreatic edema suggesting acute pancreatitis. The previously seen peripancreatic inflammatory changes have improved. Normal bilateral adrenal glands. There is a 7 cm x 5.8 cm cyst in the anterior lateral aspect of the right kidney. Normal left kidney. Normal visualized stomach. Normal small intestine. There are scattered colonic diverticula consistent with diverticulosis. The appendix is visualized and appears normal. Normal abdominal aorta. Normal inferior vena cava. Normal retroperitoneum. Normal urinary bladder. Small amount of free fluid is seen within the pelvis. The prostate is enlarged causing indentation of the bladder base. The prostate measures 5.7 cm x 4.3 cm. Normal abdominal wall. There are mild degenerative changes of the visualized lumbar spine. CT/Abdomen/Pelvis W IV Cont ONLY IMPRESSION: Persistent changes compatible with acute pancreatitis although the peripancreatic inflammatory changes have improved. Small bilateral pleural effusions with bibasilar atelectasis right greater than left. Biliary stent is seen within the common bile duct. Electronically Signed: Paco Guo MD at 14:24 EDT ,
--- NOTE | 2022-12-07 13:17 | PCM.PROGNOTE ---
Subjective Subjective Patient seen and examined. His was by his bedside. He is still having some pain and said he wasnt able to tolerate the clear liquid diet very well. Review of systems is otherwise negative. He has remained hemodynamically stable. Objective Data Objective Data Vital Signs: Vital Signs Temp Pulse Resp BP Pulse Ox O2 Del Method 98.8 F 74 18 162/95 H 96 Room Air 12/07/22 09:21 12/07/22 09:21 12/07/22 09:21 12/07/22 09:21 12/07/22 09:21 12/07/22 09:21 Oxygen Delivery Method Room Air Weight: 197 lb 8.547 oz Body Mass Index (BMI) 29.1 Intake & Output: Intake and Output for Last 24 Hours 12/05/22 12/06/22 12/07/22 23:59 23:59 23:59 Intake Total 5741.67 / 5941.67 5132.50 / 5632.50 4060 / 4060 Output Total 350 / 850 1400 / 1850 810 / 810 Balance 5391.67 / 5091.67 3732.50 / 3782.50 3250 / 3250 Lab / Micro Data Result Diagrams: 12/07/22 05:40 12/07/22 05:40 Labs: Laboratory Results - last 24 hr 12/06/22 05:45: ESR 15 12/06/22 05:45: C-React Prot Ext Range 105.00 H 12/07/22 05:40: WBC 13.1 H, RBC 3.85 L, Hgb 11.7 L, Hct 35.7 L, MCV 92.7, MCH 30.4, MCHC 32.8, RDW Std Deviation 46.0 H, RDW Coeff of Precious 13.5, Plt Count 179, MPV 10.9, Immature Gran % (Auto) 1.000 H, Neut % (Auto) 85.3 H, Lymph % (Auto) 6.9 L, [place] % (Auto) 6.5, Eos % (Auto) 0.1, Baso % (Auto) 0.2, Absolute Neuts (auto) 11.2 H, Absolute Lymphs (auto) 0.91, Nucleated RBC % 0 12/07/22 05:40: Sodium 133 L, Potassium 3.6, Chloride 106, Carbon Dioxide 23.0, Anion Gap 4 L, BUN 9, Creatinine 0.75, Estim Creat Clear Calc 71.68, Est GFR (MDRD) Af Amer 134, Est GFR (MDRD) Non-Af 111, BUN/Creatinine Ratio 12.1, Glucose 81, Calcium 7.8 L 12/07/22 05:40: C-React Prot Ext Range 168.00 H, Amylase 349 H, Lipase 112 H Physical Exam Const alert, oriented x3 and no apparent distress HEENT normocephalic, head/scalp atraumatic, moist oral mucous membranes and oropharynx normal Eyes PERRL and EOMs intact bilaterally Neck no lymphadenopathy and supple General: trachea midline Lymph Lymphatic: no lymphadenopathy noted and no lymphedema noted Resp normal respiratory effort, normal air movement and clear to auscultation bilaterally Cardio regular rate, regular rhythm, S1 normal heart sound, S2 normal heart sound and no murmurs GI normal to inspection, nondistended, normoactive bowel sounds, soft to palpation and non-tender GI Narrative: epigastric tenderness has improved Extremity normal capillary refill, no clubbing, cyanosis or edema and no calf tenderness Skin General Skin Exam: no breakdown Neuro CN's II-XII intact bilaterally, no focal motor deficits, no sensory deficits noted and deep tendon reflexes 2+ bilaterally Motor Exam: strength 5/5 throughout Psych thought process normal and cooperative Appearance: appropriate Assessment & Plan Assessment/Plan (1) Intractable abdominal pain: (2) Acute pancreatitis: PLAN: Plan #Acute pancreatitis likely iatrogenic as a result of the ERCP he had for an abnormal HIDA scan. couldnt tolerate the clear liquid diet very well due to abdominal pain. . on IV dilaudid. also on [facility] gastroenterology on board. 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 Biliary sludge and small stones were removed. to follow up with general surgery on outpatient basis pathology report pending DVT prophylaxis: lovenox Charges/Coding Visit Charges Inpatient E&M: 91420 Subs Hosp L2
[2022-12-07 13:24] LABS: Erythrocyte Sedimentation Rate 41 mm/hr (0-20)
[2022-12-07 13:41] VITALS: O2SAT 95
[2022-12-07] MEDS: Furosemide 20 MG/2 ML VIAL IV (15:42)
[2022-12-07 15:50] VITALS: BP 166/96; PULSE 70; RESP 20; TEMP 36.9; O2SAT 93
--- NOTE | 2022-12-07 16:43 | PCM.PROGNOTE ---
Subjective Subjective Patient is still having a lot of pain and is not able to eat a clear liquid diet. Objective Data Objective Data Vital Signs: Vital Signs Temp Pulse Resp BP Pulse Ox O2 Del Method 98.5 F 70 20 H 166/96 H 93 Room Air 12/07/22 15:50 12/07/22 15:50 12/07/22 15:50 12/07/22 15:50 12/07/22 15:50 12/07/22 15:50 Oxygen Delivery Method Room Air Weight: 197 lb 8.547 oz Body Mass Index (BMI) 29.1 Intake & Output: Intake and Output for Last 24 Hours 12/05/22 12/06/22 12/07/22 23:59 23:59 23:59 Intake Total 5741.67 / 5941.67 5132.50 / 5632.50 5493.33 / 5493.33 Output Total 350 / 850 1400 / 1850 1710 / 1710 Balance 5391.67 / 5091.67 3732.50 / 3782.50 3783.33 / 3783.33 Lab / Micro Data Result Diagrams: 12/07/22 05:40 12/07/22 05:40 Labs: Laboratory Results - last 24 hr 12/07/22 05:40: WBC 13.1 H, RBC 3.85 L, Hgb 11.7 L, Hct 35.7 L, MCV 92.7, MCH 30.4, MCHC 32.8, RDW Std Deviation 46.0 H, RDW Coeff of Precious 13.5, Plt Count 179, MPV 10.9, Immature Gran % (Auto) 1.000 H, Neut % (Auto) 85.3 H, Lymph % (Auto) 6.9 L, [place] % (Auto) 6.5, Eos % (Auto) 0.1, Baso % (Auto) 0.2, Absolute Neuts (auto) 11.2 H, Absolute Lymphs (auto) 0.91, Nucleated RBC % 0 12/07/22 05:40: Sodium 133 L, Potassium 3.6, Chloride 106, Carbon Dioxide 23.0, Anion Gap 4 L, BUN 9, Creatinine 0.75, Estim Creat Clear Calc 71.68, Est GFR (MDRD) Af Amer 134, Est GFR (MDRD) Non-Af 111, BUN/Creatinine Ratio 12.1, Glucose 81, Calcium 7.8 L 12/07/22 05:40: ESR 41 H 12/07/22 05:40: C-React Prot Ext Range 168.00 H, Amylase 349 H, Lipase 112 H Radiography Diagnostic Testing: Radiology Impression Abdomen/Pelvis CT 12/07/22 13:17 IMPRESSION: Persistent changes compatible with acute pancreatitis although the peripancreatic inflammatory changes have improved. Small bilateral pleural effusions with bibasilar atelectasis right greater than left. Biliary stent is seen within the common bile duct. Electronically Signed: Paco Guo MD at 14:24 EDT , Physical Exam Const alert, oriented x3 and no apparent distress HEENT normocephalic, head/scalp atraumatic, moist oral mucous membranes and oropharynx normal Eyes PERRL and EOMs intact bilaterally Neck no lymphadenopathy and supple General: trachea midline Lymph Lymphatic: no lymphadenopathy noted and no lymphedema noted Resp normal respiratory effort, normal air movement and clear to auscultation bilaterally Cardio regular rate, regular rhythm, S1 normal heart sound, S2 normal heart sound and no murmurs GI normal to inspection, nondistended, normoactive bowel sounds, soft to palpation and non-tender GI Narrative: epigastric tenderness has improved Extremity normal capillary refill, no clubbing, cyanosis or edema and no calf tenderness Skin General Skin Exam: no breakdown Neuro CN's II-XII intact bilaterally, no focal motor deficits, no sensory deficits noted and deep tendon reflexes 2+ bilaterally Motor Exam: strength 5/5 throughout Psych thought process normal and cooperative Appearance: appropriate Assessment & Plan Assessment/Plan (1) Acute pancreatitis: PLAN: Plan Acute pancreatitis status post ERCP with brushings of biliary stricture, biliary sludge and small stones removed and ampullectomy of large ampullary adenomatous mass. The pathology from the ampullary mass and biliary strictures were precancerous but not cancerous. I repeated a CT scan of the abdomen pelvis today and it did show improving pancreatitis. However his inflammatory markers including his ESR and CRP are still elevated. His amylase and lipase are still elevated even though they are coming down slowly. Hopefully will be able to introduce Ensure into his diet after I gave him a dose of azithromycin to increase his small bowel motility in the setting of a likely mild ileus associated with his acute pancreatitis. His hematocrit and hemoglobin are coming down nicely which corresponds to good outcome within the first 24 to 40 hours of treatment for acute pancreatitis. He is at 200 mL an hour of normal saline. I decrease his IV fluids to 150ml since his hematocrit is 35.6%.. Also recommend Ensure clear p.o. 3 times daily and I will give him 1 dose of Lasix as he has gained about 6 pounds from admission. Increase Reglan up to 5 mg every 6 hours scheduled. Continue bowel regimen. Charges/Coding Visit Charges Inpatient E&M: 41023 Subs Hosp L3
[2022-12-07] MEDS: 0.9% Normal Saline 1,000 ML 175 ML IV (21:23)
[2022-12-07] MEDS: MELATONIN 10 MG TABLET 5 MG PO (21:24)
[2022-12-07] MEDS: Docusate Sodium 100 MG/10 ML UDC PO (21:25)
[2022-12-07 21:50] VITALS: BP 167/91; PULSE 78; RESP 18; TEMP 36.6; O2SAT 94
[2022-12-08] MEDS: Metoclopramide 10 MG/2 ML Vial 2.5 MG IV ×3 (00:23→13:45)
[2022-12-08] MEDS: 0.9% Saline Lock 10 ML Syringe IV ×3 (00:23→13:46)
[2022-12-08] MEDS: Acetaminophen 325 MG Tablet 650 MG PO ×3 (00:28→09:40)
[2022-12-08] MEDS: 0.9% Normal Saline 1,000 ML 175 ML IV ×2 (03:33→09:31)
[2022-12-08 03:42] VITALS: BP 149/88; PULSE 80; RESP 18; TEMP 36.6; O2SAT 93
[2022-12-08 04:00] VITALS: BMI 29.9
[2022-12-08] MEDS: Enoxaparin 40 MG/0.4 ML Syringe SC (04:56)
[2022-12-08 06:31] LABS: Absolute Lymphocyte Count 0.78 X10^3/uL (0.83-4.51); Absolute Neutrophil Count 7.9 X10^3/uL (2.0-7.7); Basophil# 0.01 X10^3/uL; Basophil% 0.1 % (0-1); Eosinophil# 0.07 X10^3/uL; Eosinophils% 0.7 % (0-5); Hematocrit 34.8 % (40-54); Hemoglobin 11.6 g/dL (13.0-16.5); Lymphocyte # 0.78 X10^3/ul (0.83-4.51); Lymphocyte % 8.2 % (19-41); Mean Corp Hgb Conc 33.3 g/dL (32-36); Mean Corpuscular Hgb 30.3 pg (27.0-32.0); Mean Corpuscular Volume 90.9 fL (80-94); Mean Platelet Vol. 10.7 fl (6.2-12.0); Monocyte# 0.75 X10^3/uL; Monocyte% 7.8 % (0-10); NRBC Flagged by Analyzer 0 % (0-5); Neutrophil # 7.91 X10^3/uL (2.7-7.7); Neutrophil % 82.7 % (47-70); Platelet Count 195 K/mm3 (150-450); RBC Distribution Width CV 13.1 % (11.6-14.6); RBC Distribution Width SD 43.7 fl (35.1-43.9); Red Blood Count 3.83 M/mm3 (4.6-6.2); White Blood Count 9.6 K/mm3 (4.4-11.0)
--- NOTE | 2022-12-08 07:00 | PCM.PROGNOTE ---
Subjective Subjective Patient is feeling alot better today. He wants to go home today. Objective Data Objective Data Vital Signs: Vital Signs Temp Pulse Resp BP Pulse Ox O2 Del Method 98.4 F 64 18 175/95 H 96 Room Air 12/08/22 13:59 12/08/22 13:59 12/08/22 13:59 12/08/22 13:59 12/08/22 13:59 12/08/22 13:59 Oxygen Delivery Method Room Air Weight: 202 lb 6.15 oz Body Mass Index (BMI) 29.9 Intake & Output: Intake and Output for Last 24 Hours 12/06/22 12/07/22 12/08/22 23:59 23:59 23:59 Intake Total 5132.50 / 5632.50 6775.00 / 6775.00 3784.92 / 3784.92 Output Total 1400 / 1850 2510 / 2510 800 / 800 Balance 3732.50 / 3782.50 4265.00 / 4265.00 2984.92 / 2984.92 Lab / Micro Data Result Diagrams: 12/08/22 05:15 12/08/22 05:15 Labs: Laboratory Results - last 24 hr 12/08/22 05:15: WBC 9.6, RBC 3.83 L, Hgb 11.6 L, Hct 34.8 L, MCV 90.9, MCH 30.3, MCHC 33.3, RDW Std Deviation 43.7, RDW Coeff of Precious 13.1, Plt Count 195, MPV 10.7, Immature Gran % (Auto) 0.500, Neut % (Auto) 82.7 H, Lymph % (Auto) 8.2 L, [place] % (Auto) 7.8, Eos % (Auto) 0.7, Baso % (Auto) 0.1, Absolute Neuts (auto) 7.9 H, Absolute Lymphs (auto) 0.78 L, Nucleated RBC % 0 12/08/22 05:15: Sodium 134 L, Potassium 2.8 L, Chloride 104, Carbon Dioxide 24.0, Anion Gap 6, BUN 12, Creatinine 0.58 L, Estim Creat Clear Calc 71.68, Est GFR (MDRD) Af Amer 181, Est GFR (MDRD) Non-Af 149, BUN/Creatinine Ratio 20.8 H, Glucose 88, Calcium 8.2 L 12/08/22 05:15: ESR 37 H 12/08/22 05:15: C-React Prot Ext Range 139.00 H, Lipase 24 Physical Exam Const alert, oriented x3 and no apparent distress General Appearance: cooperative, comfortable and well kempt Orientation / Consciousness: awake Exam Limitations: no limitations HEENT normocephalic, head/scalp atraumatic, hearing grossly normal bilaterally, moist oral mucous membranes and oropharynx normal Mouth: oral and palatal mucosa normal Eyes PERRL and EOMs intact bilaterally Neck no lymphadenopathy and supple General: trachea midline Lymph Lymphatic: no lymphadenopathy noted and no lymphedema noted Resp normal respiratory effort, normal air movement and clear to auscultation bilaterally Cardio regular rate, regular rhythm, S1 normal heart sound, S2 normal heart sound and no murmurs GI normal to inspection, nondistended, normoactive bowel sounds, soft to palpation and non-tender GI Narrative: epigastric tenderness has largely resolved Extremity normal to inspection, full ROM, normal capillary refill, no clubbing, cyanosis or edema and no calf tenderness Skin no rashes or lesions noted General Skin Exam: no breakdown Neuro oriented x3, CN's II-XII intact bilaterally, moves all extremities, no focal motor deficits, no sensory deficits noted and deep tendon reflexes 2+ bilaterally Sensorium / Orientation: awake and alert Motor Exam: strength 5/5 throughout Psych thought process normal and cooperative Appearance: appropriate Assessment & Plan Assessment/Plan (1) Acute pancreatitis: PLAN: Plan Acute pancreatitis status post ERCP with brushings of biliary stricture, biliary sludge and small stones removed and ampullectomy of large ampullary adenomatous mass. The pathology from the ampullary mass and biliary strictures were precancerous but not cancerous. I repeated a CT scan of the abdomen pelvis today and it did show improving pancreatitis. However his inflammatory markers including his ESR and CRP are still elevated. His amylase and lipase are still elevated even though they are coming down slowly. Hopefully will be able to introduce Ensure into his diet after I gave him a dose of azithromycin to increase his small bowel motility in the setting of a likely mild ileus associated with his acute pancreatitis. His hematocrit and hemoglobin are coming down nicely which corresponds to good outcome within the first 24 to 40 hours of treatment for acute pancreatitis. He is at 200 mL an hour of normal saline. I decrease his IV fluids to 150ml since his hematocrit is 35.6%.. Also recommend Ensure clear p.o. 3 times daily and I will give him 1 dose of Lasix as he has gained about 6 pounds from admission. Increase Reglan up to 5 mg every 6 hours scheduled. Continue bowel regimen. Charges/Coding Visit Charges Inpatient E&M: 19878 Subs Hosp L3
[2022-12-08 07:02] LABS: Anion Gap 6 (5-15); BUN 12 mg/dL (7-18); BUN/Creat Ratio 20.8 RATIO (10-20); Calcium,Total 8.2 mg/dL (8.5-10.1); Chloride 104 mmol/L (98-107); Creatinine, Serum 0.58 mg/dL (0.70-1.30); EST Glomerular Filtration Rate 149 mL/min (>60); Est Glom Filt Rate - Afr Amer 181 mL/min (>60); Estimated Creatinine Clearance 71.68 ml/min; Glucose 88 mg/dL (74-106); Potassium 2.8 mmol/L (3.5-5.1); Sodium Level 134 mmol/L (136-145)
[2022-12-08 08:02] VITALS: BP 148/86; PULSE 66; RESP 16; TEMP 36.8; O2SAT 93
[2022-12-08 08:19] VITALS: O2SAT 94
[2022-12-08] MEDS: Ensure Clear 120 ML Liquid PO (08:23)
[2022-12-08] MEDS: Senna/Docusate Sodium 1 Tablet 2 TABLET PO (08:26)
[2022-12-08] MEDS: Potassium Chloride 10mEq/100mL 10 MEQ/100 ML IV.SOLN. 100 MEQ IV BOLUS ×4 (08:27→12:12)
[2022-12-08 08:53] LABS: Lipase 24 U/L (13-75)
[2022-12-08 10:13] LABS: Erythrocyte Sedimentation Rate 37 mm/hr (0-20)
[2022-12-08] MEDS: Furosemide 20 MG/2 ML VIAL IV (13:47)
--- NOTE | 2022-12-08 13:58 | DS.PCM_ITS ---
Providers Date of Admission: 12/05/22 Date of Discharge: 12/08/22 Primary Care Physician: Dr. Scout Goodson MD Consultations 12/05/22 06:04 Consult: Gastroenterology Routine Consulting Provider: [facility] Reason for Consult: Acute pancreatitis, recent EGD w/ intervention EMERGENT Consult: No MD Notified: Yes Date Notified: 12/05/22 Time Notified: 03:38 Method of Notification: ED Physician Initiated Reason For Visit: ACUTE PANCREATITIS S/P RECENT EGD W/INTERVENTION Diagnosis Discharge Diagnosis (1) Acute pancreatitis: Status: Acute Code(s): K85.90 - Acute pancreatitis without necrosis or infection, unspecified Plan #Acute pancreatitis * likely iatrogenic as a result of the ERCP he had for an abnormal HIDA scan. * couldnt tolerate the clear liquid diet very well due to abdominal pain. . on IV dilaudid. * also on reglan * gastroenterology on board. * #Ampullary mass * Due to an abnormal HIDA scan. 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 Biliary sludge and small stones were removed. * to follow up with general surgery on outpatient basis * pathology report pending * DVT prophylaxis: lovenox Medications at Discharge Home Medications acetaminophen 325 mg capsule (Tylenol) 325 mg PO Q6H PRN Pain 06/12/22 melatonin 5 mg capsule 5 mg PO QHS PRN Sleep 06/12/22 pantoprazole 20 mg tablet,delayed release 20 mg PO DAILY stomach 12/05/22 azithromycin 500 mg tablet 500 mg PO DAILY 5 days #5 tabs 12/08/22 docusate sodium 100 mg capsule (Colace) 100 mg PO BID #14 caps 12/08/22 metoclopramide HCl 10 mg tablet (Reglan) 10 mg PO Q6H PRN nausea and vomiting #30 tabs 12/08/22 Hospital Course Operations None Procedures None Summary of Care Provided Minutes Spent on Discharge: 50 Hospital Course: Patient is a 67-year-old male with past medical history as outlined who was admitted with a complaint of worsening abdominal pain. 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 He had an upper endoscopy and was found to have an ampullary lesion so he had ERCP with embolectomy and stent placement and resection of the ampullary mass. He subsequently came back the day after he had a ERCP with severe right upper quadrant abdominal pain. CT of the abdomen showed acute pancreatitis and lipase was also markedly elevated. He was admitted and managed for acute pancreatitis. He was kept NPO and hydrated aggressively with fluids as well as given pain medication. Gastroenterology was consulted. He was also started on reglan and azithromycin by gastroenterology. His CRP was markedly elevated. Repeat CT a bdomen showed persistent changes compatible with acute pancreatitis although the peripancreatic take inflammatory changes had improved with biliary stent seen in the common bile duct and small bilateral pleural effusions. His CRP started trending downwards little still elevated. Abdominal pain also improved and he felt better. He was able to tolerate a soft diet. Patient requested discharge home and this was discussed with gastroenterology who agreed. Patient was discharged on p.o. azithromycin 500 mg daily for 5 days to help with any developing ileus and was also discharged on Reglan as well as Colace. He is follow-up with his primary care doctor and follow-up with gastroenterology on outpatient basis. Patient seen and examined prior to discharge. He felt much better and had no ac tive complaints. Review of systems otherwise negative. Labs and vitals reviewed. Home medication reviewed and reconciled. Physical Exam Const alert, oriented x3 and no apparent distress General Appearance: cooperative, comfortable and well kempt Orientation / Consciousness: awake Exam Limitations: no limitations HEENT normocephalic, head/scalp atraumatic, hearing grossly normal bilaterally, moist oral mucous membranes and oropharynx normal Mouth: oral and palatal mucosa normal Eyes PERRL and EOMs intact bilaterally Neck no lymphadenopathy and supple General: trachea midline Lymph Lymphatic: no lymphadenopathy noted and no lymphedema noted Resp normal respiratory effort, normal air movement and clear to auscultation bilaterally Cardio regular rate, regular rhythm, S1 normal heart sound, S2 normal heart sound and no murmurs GI normal to inspection, nondistended, normoactive bowel sounds, soft to palpation and non-tender GI Narrative: epigastric tenderness has largely resolved Extremity normal to inspection, full ROM, normal capillary refill, no clubbing, cyanosis or edema and no calf tenderness Skin no rashes or lesions noted General Skin Exam: no breakdown Neuro oriented x3, CN's II-XII intact bilaterally, moves all extremities, no focal motor deficits, no sensory deficits noted and deep tendon reflexes 2+ bilaterally Sensorium / Orientation: awake and alert Motor Exam: strength 5/5 throughout Psych thought process normal and cooperative Appearance: appropriate Weight / BMI Weight Weight: 202 lb 6.15 oz Body Mass Index (BMI) 29.9 ABG / Lab / Microbiology Data Result Diagrams: 12/08/22 05:15 12/08/22 05:15 Laboratory: Laboratory Results - last 24 hr 12/08/22 05:15: WBC 9.6, RBC 3.83 L, Hgb 11.6 L, Hct 34.8 L, MCV 90.9, MCH 30.3, MCHC 33.3, RDW Std Deviation 43.7, RDW Coeff of Precious 13.1, Plt Count 195, MPV 10.7, Immature Gran % (Auto) 0.500, Neut % (Auto) 82.7 H, Lymph % (Auto) 8.2 L, [place]wood % (Auto) 7.8, Eos % (Auto) 0.7, Baso % (Auto) 0.1, Absolute Neuts (auto) 7.9 H, Absolute Lymphs (auto) 0.78 L, Nucleated RBC % 0 12/08/22 05:15: Sodium 134 L, Potassium 2.8 L, Chloride 104, Carbon Dioxide 24.0, Anion Gap 6, BUN 12, Creatinine 0.58 L, Estim Creat Clear Calc 71.68, Est GFR (MDRD) Af Amer 181, Est GFR (MDRD) Non-Af 149, BUN/Creatinine Ratio 20.8 H, Glucose 88, Calcium 8.2 L 12/08/22 05:15: ESR 37 H 12/08/22 05:15: C-React Prot Ext Range 139.00 H, Lipase 24 Radiography Diagnostic Testing: Radiology Impression Abdomen/Pelvis CT 12/07/22 13:17 IMPRESSION: Persistent changes compatible with acute pancreatitis although the peripancreatic inflammatory changes have improved. Small bilateral pleural effusions with bibasilar atelectasis right greater than left. Biliary stent is seen within the common bile duct. Electronically Signed: Paco Guo MD at 14:24 EDT , D/C Instructions Discharge Diet: Low fat / Low cholesterol Discharge Activity: Return to Normal Activity Weight Bearing Status: Weight bearing as tolerated Call your doctor if you observe: Fever of 101 or Higher, Shortness of breath, Dizziness, Swelling in the ankles, Chest pain, Increased palpitations (irregular heartbeat) and Uncontrolled pain Meaningful Use Info Meaningful Use Diagnoses (Choose all that apply): None applicable Discharge Plan Admission Admit Date/Time: 12/05/22 03:37 Primary Reason for Your Visit: acute pancreatitis Attending Provider: Cynthia Rg Primary Care Provider: Scout Goodson Consulting Providers: Tash Noriega Instructions Patient Instructions: Pancreatitis Acute Dc Discharge Orders/Prescriptions Prescriptions: New metoclopramide HCl [Reglan] 10 mg tablet 10 mg PO Q6H PRN (Reason: nausea and vomiting) Qty: 30 0RF azithromycin 500 mg tablet 500 mg PO DAILY 5 Days Qty: 5 0RF docusate sodium [Colace] 100 mg capsule 100 mg PO BID Qty: 14 0RF Continued acetaminophen [Tylenol] 325 mg capsule 325 mg PO Q6H PRN (Reason: Pain) melatonin 5 mg capsule 5 mg PO QHS PRN (Reason: Sleep) pantoprazole 20 mg tablet,delayed release (DR/EC) 20 mg PO DAILY Label Comments: TAKE 1 TABLET BY MOUTH DAILY Referrals / Follow Up: Scout Goodson MD [Primary Care Provider] - Within 2 Weeks Bhavesh Shetty DO [Med Staff - Active Staff] - Disposition Disposition (needs filled in before D/C Order can be placed): Home, Self Care Charges/Coding Visit Charges Inpatient E&M: 18098 Disch Hosp >30min
[2022-12-08 13:59] VITALS: BP 175/95; PULSE 64; RESP 18; TEMP 36.9; O2SAT 96
== END 2022-12-08 14:56 | disposition home or self-care (01) | DRG 393 ==
LOC: ED 03:32 → MS3 04:09
PROVIDERS: Internal Medicine Gastroenterology; Admitting Provider Family Medicine; Emergency Provider Emergency Medicine; PCP Family Medicine; Visit Provider Student in an Organized Health Care Education/Training Program
DX: K91.89 Other postprocedural complications and disorders of digestive system (principal); K85.90 Acute pancreatitis without necrosis or infection, unspecified; K80.50 Calculus of bile duct without cholangitis or cholecystitis without obstruction; K83.8 Other specified diseases of biliary tract; I71.21 Aneurysm of the ascending aorta, without rupture; K21.9 Gastro-esophageal reflux disease without esophagitis; K44.9 Diaphragmatic hernia without obstruction or gangrene; R73.9 Hyperglycemia, unspecified
CPT/HCPCS: 36415; 71045; 74177; 74328; 76000; 80048; 80053; 80076; 82150; 83036; 83605; 83690; 85025; 85652; 86140; 88108; 88305; 88313; 93005; 94668; 97802; 99284; J7030; J7050; J7120; Q9967; A4216; J1940; J2405

== ENCOUNTER → 2022-12-20 | Outpatient (CLI) | payer MEDICARE, OTHER, SELFPAY ==
[2022-12-20 10:29] LABS: Absolute Neutrophil Count 2.8 X10^3/uL (2.0-7.7); Basophil# 0.09 X10^3/uL; Basophil% 1.6 % (0-1); Eosinophil# 0.19 X10^3/uL; Eosinophils% 3.4 % (0-5); Hematocrit 40.2 % (40-54); Hemoglobin 12.9 g/dL (13.0-16.5); Lymphocyte % 34.4 % (19-41); Mean Corp Hgb Conc 32.1 g/dL (32-36); Mean Corpuscular Hgb 29.7 pg (27.0-32.0); Mean Corpuscular Volume 92.4 fL (80-94); Mean Platelet Vol. 9.6 fl (6.2-12.0); Monocyte# 0.54 X10^3/uL; Monocyte% 9.8 % (0-10); NRBC Flagged by Analyzer 0 % (0-5); Neutrophil # 2.78 X10^3/uL (2.7-7.7); Neutrophil % 50.3 % (47-70); Platelet Count 510 K/mm3 (150-450); RBC Distribution Width CV 13.2 % (11.6-14.6); RBC Distribution Width SD 44.7 fl (35.1-43.9); Red Blood Count 4.35 M/mm3 (4.6-6.2); White Blood Count 5.5 K/mm3 (4.4-11.0)
[2022-12-20 10:48] LABS: Erythrocyte Sedimentation Rate 20 mm/hr (0-20)
[2022-12-20 11:20] LABS: BUN 20 mg/dL (7-18); Creatinine, Serum 0.97 mg/dL (0.70-1.30); Glucose 75 mg/dL (74-106)
[2022-12-20 11:21] LABS: ALB/GLOB Ratio 0.9 RATIO (0.9-2.4); AST(SGOT) 14 U/L (15-37); Alanine Aminotransfer ALT/SGPT 34 U/L (16-61); Albumin, Serum 3.4 g/dL (3.2-5.0); Alkaline Phosphatase 78 U/L (45-117); Amylase 102 U/L (25-115); Anion Gap 7 (5-15); BUN/Creat Ratio 20.7 RATIO (10-20); CRP 3.56 mg/L (0.0-3.0); Calcium,Total 9.7 mg/dL (8.5-10.1); Chloride 103 mmol/L (98-107); EST Glomerular Filtration Rate 82 mL/min (>60); Est Glom Filt Rate - Afr Amer 99 mL/min (>60); Globulin 3.6 g/dL (2.2-4.2); Lipase 73 U/L (13-75); Potassium 4.4 mmol/L (3.5-5.1); Sodium Level 138 mmol/L (136-145)
== END | disposition home or self-care (01) ==
LOC: MTLAB 08:23
PROVIDERS: PCP Family Medicine; Referring Provider Internal Medicine Gastroenterology; Visit Provider Internal Medicine Gastroenterology
DX: K85.90 Acute pancreatitis without necrosis or infection, unspecified (principal)
CPT/HCPCS: 36415; 80053; 82150; 83690; 85025; 85652; 86140

== ENCOUNTER → 2023-01-16 | Outpatient (CLI) | payer MEDICARE, OTHER, SELFPAY ==
--- NOTE | 2023-01-16 09:59 | US_ITS ---
ACR Level 3 findings have been noted. An addendum which confirms receipt of the report will follow. STUDY: THYROID ULTRASOUND REASON FOR EXAM: Male, 68 years old. Nodule felt by doctor TECHNIQUE: Ultrasound evaluation of the thyroid was performed with real-time and static pimentel-scale imaging. COMPARISON: None. FINDINGS: RIGHT LOBE: The right lobe of the thyroid gland measures 6.4 x 2.9 x 1.7 cm. There is a heterogeneous echotexture. Within the right thyroid from superior to inferior there is a visualized solid-appearing mass measuring 2.7 x 2.0 x 1.2 cm with peripheral vascularity and minimal cystic components and no significant calcification. Image #31. There is a second nodule in the lower aspect of the thyroid measuring 1.6 x 1.5 x 1.3 cm. There is also a curvilinear calcification measuring approximately 6.1 mm it does not appear to be associated with a nodule rather probably associated with a cyst. LEFT LOBE: The left lobe of the thyroid gland measures 5.7 x 2.6 x 2.1 cm. There is a heterogeneous echotexture. Within the left thyroid there is a inhomogeneous appearance of the thyroid with a hypoechoic wider than tall minimally vascular 6 x 6 x 3 mm nodule. There is a round nodule at the level of the isthmus within homogeneity possible coarse calcifications without significant shadowing. ISTHMUS: The isthmus measures 4 millimeters . There is a 1 cm round isthmus nodule. Using ACR T -RADS criteria: This well-circumscribed mass appears mostly solid hypoechoic with punctate echogenic foci. A wider than tall or shape is not described since this is essentially a round nodule. Liver, This falls into a moderately suspicious to highly suspicious category criteria using T rads calculation. The regional lymph nodes are normal. US/Thyroid IMPRESSION: Thyromegaly. Multinodular thyroid. Atypical appearing isthmus nodule measuring 1 cm, that falls into a category of suspicious to highly suspicious for which a fine needle aspiration is recommended. There is a wider than tall solid hyperechoic or isoechoic nodule in the periphery of the right thyroid with smooth borders and no calcification. This falls into a category of mildly suspicious. Upper, Since it is 2.7 x 2.0 x 1.2 cm, by ACR t rads criteria a fine-needle aspiration should be considered. The 1.6 x 1.5 x 1.3 cm right thyroid nodule also falls into a category of mildly suspicious but can be followed based on size. There is a nonspecific hypoechoic well-circumscribed 6 x 6 x 3 mm nodule left thyroid which falls into a category of not suspicious. Electronically Signed: Elizabeth Zhu MD at 23:38 EDT ,
--- NOTE | 2023-01-16 09:59 | US_ITS ---
STUDY: ULTRASOUND - URINARY BLADDER REASON FOR EXAM: Male, 68 years old. bph with obstruction TECHNIQUE: Ultrasound evaluation of the urinary bladder was performed with real-time and static pimentel-scale imaging. COMPARISON: None. FINDINGS: There is no right UVJ calculus. There is a visualized right ureteral jet. There is no left UVJ calculus. There is a visualized left ureteral jet. The distended volume of the urinary bladder is 334 ml. The empty volume of the urinary bladder is 270 ml. The bladder wall is within normal limits. The bladder wall measures 3 mm. There is no demonstrated bladder wall mass lesion. There are no demonstrated bladder calculi. Prostate gland is enlarged measuring 4.5 x 5.1 x 3.6 cm. US/Post Void Residual Bladder IMPRESSION: Significant post void residual. No bladder wall thickening. Moderately large prostate. Electronically Signed: Issac Prater MD at 21:23 EDT ,
== END | disposition home or self-care (01) ==
LOC: US 09:58
PROVIDERS: PCP Family Medicine; Referring Provider Family Medicine; Visit Provider Family Medicine
DX: E04.1 Nontoxic single thyroid nodule (principal); N40.1 Benign prostatic hyperplasia with lower urinary tract symptoms
CPT/HCPCS: 51798; 76536

== ENCOUNTER → 2023-01-18 | Outpatient (CLI) | payer MEDICARE, OTHER, SELFPAY ==
[2023-01-18 12:46] LABS: Erythrocyte Sedimentation Rate 7 mm/hr (0-20)
[2023-01-18 12:49] LABS: Absolute Lymphocyte Count 1.65 X10^3/uL (0.83-4.51); Basophil# 0.07 X10^3/uL; Basophil% 1.3 % (0-1); Eosinophil# 0.16 X10^3/uL; Hematocrit 40.2 % (40-54); Hemoglobin 13.2 g/dL (13.0-16.5); Lymphocyte # 1.65 X10^3/ul (0.83-4.51); Lymphocyte % 31.4 % (19-41); Mean Corp Hgb Conc 32.8 g/dL (32-36); Mean Corpuscular Hgb 29.8 pg (27.0-32.0); Mean Corpuscular Volume 90.7 fL (80-94); Mean Platelet Vol. 10.3 fl (6.2-12.0); Monocyte# 0.35 X10^3/uL; Monocyte% 6.7 % (0-10); NRBC Flagged by Analyzer 0 % (0-5); Neutrophil # 3.02 X10^3/uL (2.7-7.7); Neutrophil % 57.4 % (47-70); Platelet Count 240 K/mm3 (150-450); RBC Distribution Width CV 13.4 % (11.6-14.6); RBC Distribution Width SD 44.8 fl (35.1-43.9); Red Blood Count 4.43 M/mm3 (4.6-6.2); White Blood Count 5.3 K/mm3 (4.4-11.0)
[2023-01-18 13:27] LABS: CRP < 2.90 mg/L (0.0-3.0); Rheumatoid Factor < 10.0 IU/mL (<15); Uric Acid 5.1 mg/dL (3.5-7.2)
[2023-01-21 15:07] LABS: ANTINUCLEAR ANTIBODIES DIRECT Negative (Negative)
== END | disposition home or self-care (01) ==
LOC: MTLAB 11:15
PROVIDERS: PCP Family Medicine; Referring Provider Student in an Organized Health Care Education/Training Program; Visit Provider Student in an Organized Health Care Education/Training Program
DX: S63.21 Subluxation of metacarpophalangeal joint of finger (principal); M19.042 Primary osteoarthritis, left hand
CPT/HCPCS: 36415; 84550; 85025; 85652; 86038; 86140; 86431

== ENCOUNTER → 2023-02-28 | Outpatient (CLI) | payer MEDICARE, OTHER, SELFPAY ==
--- NOTE | 2023-02-28 | ASPS_PTH ---
PATIENT: TYLRE AYALA LOC: [facility] U#:[id number] AGE/SX: 68/M ROOM: RE02/28/[address]: Dr. Tyler Sharp MD : 1955 BED: DIS: 02/28/2023 SPEC #: [id number] RECD: 02/28/23 13:29 STATUS: VINICIUS FLORESAura #: [id number] EUSEB[place]: 02/28/23 00:[address]: Tyler Sharp DEPT: CYTOLOGY RECD BY: Yessy Garcia ENTERED: 02/28/23 14:05 SP TYPE: ASPIRATION OTHR DR: Dr. Scout Goodson MD Tissues: A - Thyroid isthmus B - Thyroid gland, NOS C - Thyroid gland, NOS Procedures: Special Stain Group II Cytology Other HEADER OPERATION: Fine needle aspiration isthmus and right thyroid x2 PRE-OP DIAGNOSIS: Thyroid nodules TISSUE SUBMITTED: A. Isthmus nodule, slides, B. Right upper pole, slides, C. Right lower pole, slides DIAGNOSIS CYTOLOGY A. Isthmus nodule, needle aspiration (smears): Positive for malignant cells. See Comment. B. Right upper pole, needle aspiration (smears): Atypia of undetermined significance. See Comment. C. Right lower pole, needle aspiration (smears): Positive for malignant cells. See Comment. AM:phil 03/01/23 COMMENT A & C. Both specimens display similar cyto- morphology with nuclear pleomorphism, prominent intranuclear inclusions minimal grooving within the nuclei, and cellular crowding. Vague papillary structures are also identified. 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 Specimen C contains the diagnostic cells on only one of four smears. Afirma testing is recommended. B. Atypia of undetermined significance (Walker category III) is noted focally in the smears. Afirma testing is recommended. All three specimens are adequate for evaluation. The Walker System for Reporting Thyroid Cytopathology was used in the evaluation of this case. Clinical correlation is suggested. Case has been reviewed in consultation with Dr. Harden who concurs with the above diagnosis. IDC:[email or web address] CYTOLOGY STUDY Slides are reviewed. CYTOLOGY GROSS A. Received are 3 smears labeled with the patient's name and designated per the requisition as isthmus nodule. Submitted for staining. B. Received are 5 smears labeled with the patient's name and designated per the requisition as right upper pole. Submitted for staining. C. Received are 4 smears labeled with the patient's name and designated per the requisition as right lower pole. Submitted for staining. /LINO:lawson 02/28/23 TC:0 [facility]: [id number] x3 ADDENDUM ADDENDUM ADDENDUM ADDENDUM ADDENDUM ADDENDUM ADDENDUM ADDENDUM 04/09/2023 09:12 ADDENDUM 04/09/2023 09:12 ADDENDUM 04/09/2023 09:12 ADDENDUM 04/25/2023 10:31 ADDENDUM 04/09/2023 09:12 ADDENDUM 04/09/2023 09:12 [facility] RESULTS REPORT RESULTS INTERPRETATION: The result of this 1.6 cm Walker nodule A is BRAF p:V600E positive. Among Walker III/IV nodules, this alteration suggests a risk of cancer of >95%, and is likely higher among Walker V and nodules. Please see complete report in e-chart or EMR This addendum is added to incorporate an outside pathology consultation report. The case was examined at [facility] (#[id number]) and the following diagnosis was rendered. A. Thyroid, isthmus nodule, needle aspiration: Positive for malignant cells. Papillary thyroid carcinoma. B. Thyroid, right upper pole, needle aspiration: Atypia of undetermined significance. Mild architectural and subtle nuclear atypia. C. Thyroid, right lower pole, needle aspiration: Positive for malignant cells. Papillary thyroid carcinoma. Please see complete above mentioned consultation report in EMR
== END | disposition home or self-care (01) ==
LOC: LABSPEC 13:50
PROVIDERS: PCP Family Medicine; Referring Provider Surgery; Visit Provider Surgery
DX: E04.2 Nontoxic multinodular goiter (principal)
CPT/HCPCS: 88161; 88313

== ENCOUNTER → 2023-03-06 | Outpatient (CLI) | payer MEDICARE, OTHER, SELFPAY ==
--- NOTE | 2023-03-06 11:28 | US_ITS ---
INDICATION: screening lymph node EXAMINATION: Ultrasound US Head/Neck Soft Tissue TECHNIQUE: Parnell scale and color doppler imaging was performed of the neck soft tissues as part of a lymph node screening study. COMPARISON: FINDINGS: RIGHT: Zone 1a lymph nodes: A subcentimeter lymph node is identified. Zone Ib lymph nodes: 4 lymph nodes are identified, 2 of which measure 1 cm and 1.1 cm respectively, with the other 1''s being subcentimeter in size. Zone 2 lymph nodes: 3 lymph nodes are identified mostly subcentimeter, with the largest measuring 1 cm in greatest dimension. Zone 3 lymph nodes: There is a 1.5 cm and 1.7 cm lymph node identified in greatest dimension. An additional subcentimeter lymph node is noted. Zone 4 lymph nodes: There is a 1.1 cm lymph node in greatest dimension identified. Zone 6: There is a 2 cm, 1.2 cm, and 1 cm lymph node identified. An additional subcentimeter lymph node is noted. LEFT: Zone 1b lymph nodes: There is a 1.4 cm and a 1.5 cm lymph node identified in greatest dimension. 2 additional subcentimeter lymph nodes are noted. Zone 3 lymph nodes: There is a 1 cm stone identified and a 1.5 cm lymph node identified. 3 additional subcentimeter lymph nodes are noted. Zone 4 lymph nodes: There is a 1.5 cm lymph node identified. 2 additional subcentimeter lymph nodes are noted. Zone 5a lymph nodes: There is one subcentimeter lymph node identified. Zone 6 lymph nodes: There is a 1 cm, 1.1 cm, and 1.7 cm lymph node identified. Additional subcentimeter lymph node is noted. IMPRESSION: Lymph nodes in the right and left neck as described, the largest measuring between 1 to 2 cm. US/Head/Neck Soft Tissue IMPRESSION: Negative thyroid ultrasound examination. Electronically Signed: Roney Fonseca, at 8:29 EDT ,
== END | disposition home or self-care (01) ==
LOC: US 11:27
PROVIDERS: PCP Family Medicine; Referring Provider Surgery; Visit Provider Surgery
DX: K83.8 Other specified diseases of biliary tract (principal)
CPT/HCPCS: 76536

== ENCOUNTER 2023-04-24 10:37 | Day surgery (SDC) | payer MEDICARE, OTHER, SELFPAY ==
--- NOTE | 2023-04-24 | COLBX_PTH ---
PATIENT: TYLER AYALA LOC: [facility] U#:[id number] AGE/SX: 68/M ROOM: RE04/24/[address]: Dr. Bhavesh Shetty DO : 1955 BED: DIS: 04/24/2023 SPEC #: [id number] RECD: 04/24/23 12:50 STATUS: VINICIUS TRUNG #: [id number] EUSEB[place]: 04/24/23 00:[address]: Bhavesh Shetty DEPT: SURGICAL PATHOLOGY RECD BY: Bob Vega ENTERED: 04/24/23 13:07 SP TYPE: COLON BX OTHR DR: Dr. Scout Goodson MD Tissues: A - Ampulla of Vater Procedures: Surgery Specimen Level IV HEADER OPERATION: ERCP with stent removal and biopsies PRE-OP DIAGNOSIS: Pancreatitis, ampulla of Vater mass TISSUE SUBMITTED: Ampulla mass biopsies MICROSCOPIC DIAGNOSIS Ampulla mass, biopsy: Fragments of tubular adenoma with focal mucosal ulceration, associated acute and chronic inflammation. AM:chao 04/25/2023 COMMENT Please correlate this case with cytology case [id number]. MICROSCOPIC DESCRIPTION Slides are reviewed. GROSS DESCRIPTION Received in fixative is one container labeled with the patient's name and designated ampulla mass biopsies. The specimen consists of multiple irregular fragments of light hoffamnn soft tissue that in aggregate measure 1.5 x 0.4 x 0.1 cm. The specimen is totally submitted in one cassette. / SJ:chao 04/24/2023 TC:3 CPT: [id number]
--- NOTE | 2023-04-24 | FLU_PTH ---
PATIENT: TYLER AYALA LOC: [facility] U#:[id number] AGE/SX: 68/M ROOM: RE04/24/[address]: Dr. Bhavesh Shetty DO : 1955 BED: DIS: 04/24/2023 SPEC #: [id number] RECD: 04/24/23 12:50 STATUS: VINICIUS TRUNG #: [id number] EUSEB[place]: 04/24/23 00:[address]: Bhavesh Shetty DEPT: CYTOLOGY RECD BY: Bob Vega ENTERED: 04/24/23 13:08 SP TYPE: Fluid OTHR DR: Dr. Scout Goodson MD Tissues: Bile duct, NOS Procedures: Special Stain Group II Surgery Specimen Level IV Cytospin Fluid HEADER OPERATION: ERCP with stent removal and biopsies PRE-OP DIAGNOSIS: Pancreatitis, ampulla of Vater mass TISSUE SUBMITTED: Biliary stent fluid for cytology DIAGNOSIS CYTOLOGY Biliary fluid for cytology (cytospin and cell block): Negative for malignant cells. Vegetable matter. See comment. AM:chao 04/25/2023 COMMENT Please correlate this case with surgical case [id number]. CYTOLOGY STUDY Slides are reviewed. CYTOLOGY GROSS Received is a stent rinsed and produced 20 ml of brownish-green fluid with particles labeled with the patient's name and and designated per the requisition as biliary stent. Submitted for cytology preparation including cell block. / chao 04/24/2023 TC:5 CPT: [id number], [id number]
--- NOTE | 2023-04-24 11:00 | RAD_ITS ---
STUDY: ERCP. REASON FOR EXAM: Male, 68 years old. Right upper quadrant pain. FLUOROSCOPY TIME (if supplied): ( 1 minute and 7 seconds ) minutes/seconds. 25.95 mGy TECHNIQUE: An ERCP was performed by the forest fire warden. Imaging was supplied. COMPARISON: None. FINDINGS: No radiographic abnormality is seen. RAD/ERCP Biliary Only IMPRESSION: Unremarkable ERCP. Electronically Signed: Paco Guo MD at 11:03 EDT ,
[2023-04-24 11:04] VITALS: BP 133/91; PULSE 68; RESP 16; TEMP 36.6; O2SAT 97; BMI 28.6
[2023-04-24] MEDS: Lactated Ringers 1,000 ML 15 ML IV (11:08)
--- NOTE | 2023-04-24 11:09 | PCM.HP.BLA ---
History and Physical Date of Admission: 04/24/23 TYLER AYALA, is a 68 M who presents to the office today for follow up. [facility] ED presentation 06.08.22 with RUQ pain that later radiated to chest and shoulder blade and worsening intensity with intermittent nausea. No acute findings during workup and he was discharged with instruction to establish with Dr. Stanton. ?Biochemical workup?CBC, CMP, UA without pertinent abnormality.?Lipase L72?US RUQ?BOSNIAK type II right renal cyst. Exam otherwise without acute/chronic abnormality.?CT abd/pel?large exophytic simple right renal cyst; diverticulosis without inflammatory changes; enlarged prostate.? ? [facility] Dr. Stanton seen 06.12.22. 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 EGD and colonoscopy 08.02.22?EGD found nodular mucosa of ampulla with chronic inflammation and focal adenomatous changes; gastritis; gastric polyp, without path changes; esophageal polyps, benign; small hiatal hernia; GE junction biopsy with focal goblet cell metaplasia and inflammation. H.Pylori negative.?Colonoscopy found diverticulosis; two 5&8mm hyperplastic polyps in sigmoid colon.? ? *BGI established 10.25.22 with referral from [facility] where he established following [facility] ED presentation. PPI has been helpful and has had a resolution of previously noted symptoms. ? Contact 11.09.22 reporting he was having SE and stopped PPI with resolution of symptoms.? 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 Cytology without malignancy.? [facility] hospitalization 12.05.22-12.08.22. ED presentation with generalized upper abdominal pain starting the prior evening with severity worsening with N/V. Workup concerning for acute pancreatitis and he was admitted. GI consulted same day for management of acute pancreatitis with NPO, pain management, IVF, and reglan.?Biochemical?Lipase >5000? CT abd/pel 12.05.22?hypoattenuating hepatic lesions, stable; trace gas in gallbladder; CBD stent in place; peripancreatic fat stranding and moderate fluid extending into retroperitoneum with duct dilation up to 5mm in head/neck; right renal cystic structure, stable; colonic diverticulosis; prostatomegaly.? Contact 12.18.22 generally feeling unwell.?Biochemical?CBC, amylase, lipase, CMP (mild dehydration) without pertinent abnormality.?CRP 3.9? Contact 12.20.22 with results; feels that it is more of an indigestion that her is concerned about, increase PPI to 40mg BID. Possible CT scan to monitor for development of pseudocyst.?Biochemical?CBC, CMP, amylase, lipase without pertinent abnormality. Some mild dehydration.?CRP H3.56.? Pt reports feeling generally well. Denies HB and dysohagia and is questioning if he needs to cont. Pantoprazole. Very rarely has rup abd pain. Appetite stable and bowels are normal. No other complaints. ROS Const Constitutional: No fatigue ENT ENT: No difficulty swallowing Gastro GI: No abdominal pain, belching, bloating, change in bowel habits, change in stool character, coffee ground emesis, constipation, cramping, diarrhea, heartburn, difficulty swallowing, feeling full early, excessive flatus, incontinent of stools, Vomiting blood/hematemesis, Blood in stool, loose stools, Black,tarry stools, nausea/dyspepsia, pain with swallowing, vomiting or other Musc Musculoskeletal: Positive for joint pain Skin Skin: No yellowing of the eye or itchy eyes Psych Psychiatric: No anxiety and No depression Endo Endocrine: No fatigue Aller/Imm Allergy/Immunologic: No itchy eyes Edson/Lymp Hematologic/Lymphatic: No easy bleeding or easy bruising Exam Const General: cooperative and healthy appearing [facility] Head: normocephalic and atraumatic Ears: hearing grossly normal bilaterally Nose: external nose normal Face and sinus: normal facial exam and face symmetric Mouth: oral mucosae normal Throat: posterior oropharynx normal Eyes General: appearance normal, both eyes and all related structures Resp Effort & Inspection: normal respiratory effort Auscultation: Bilateral: Clear to Auscultation Cardio Palpation: normal PMI Rate: regular rate Rhythm: regular rhythm Skin General: no rashes or lesions noted Neuro General: patient alert and CN's II-XI intact bilaterally Psych Appearance: grossly normal Mental Status: mental status grossly normal Quality Reporting Tobacco Screening ([facility]) Smoking Status: Never smoker Assessment and Plan Assessment and Plan (1) Pancreatitis: Status: Acute Plan: Acute pancreatitis secondary to ERCP after removing ampulla Vater mass and having a stent placed. He is doing very well without any complications from his episode of acute pancreatitis that we know of. He is tolerating a diet. His CRP had gone from 168 down to less than 2.9. He is able to eat any foods he wants and is back to his regular activity. We will remove the stent in approximately 4 to 5 months. 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 We will rebiopsy that area when he gets his stent pulled. I have examined the patient and the H&P has been reviewed. There are no clinical changes since date of exam.
--- NOTE | 2023-04-24 12:44 | OP.ERCP_ITS ---
Patient Name: Vahe Rock Procedure Date: 04/24/2023 11:37 AM Date of : 1955 Age: 68 Procedure: ERCP Indications: Stent removal Providers: Bhavesh Shetty DO Medicines: Monitored Anesthesia Care Patient Profile: This is a 68 year old male. Refer to note in patient chart for documentation of history and physical. Patient has symptoms of acute epigastric abdominal pain. Complications: No immediate complications. Procedure: Pre-Anesthesia Assessment: - Prior to the procedure, a History and Physical was performed, and patient medications and allergies were reviewed. The patient is competent. The risks and benefits of the procedure and the sedation options and risks were discussed with the patient. All questions were answered and informed consent was obtained. Patient identification and proposed procedure were verified by the physician. Mental Status Examination: normal. Prophylactic Antibiotics: The patient does not require prophylactic antibiotics. Prior Anticoagulants: The patient has taken no anticoagulant or antiplatelet agents. After reviewing the risks and benefits, the patient was deemed in satisfactory condition to undergo the procedure. The anesthesia plan was to use monitored anesthesia care (MAC). Immediately prior to administration of medications, the patient was re-assessed for adequacy to receive sedatives. The heart rate, respiratory rate, oxygen saturations, blood pressure, adequacy of pulmonary ventilation, and response to care were monitored throughout the procedure. The physical status of the patient was re-assessed after the procedure. After obtaining informed consent, the scope was passed under direct vision. Throughout the procedure, the patient's blood pressure, pulse, and oxygen saturations were monitored continuously. The Duodenoscope was introduced through the mouth, and advanced to the duodenum and used to inject contrast into the bile duct. The ERCP was accomplished without difficulty. The patient tolerated the procedure well. Scope In: 12:11:56 PM Scope Out: 12:31:20 PM Total Procedure Duration Time 0 hours 19 minutes 24 seconds Findings: A compressed gases tester film of the abdomen was obtained. One stent ending in the main bile duct was seen. The entire biliary tree except for the cystic duct and gallbladder contained air. The esophagus was successfully intubated under direct vision. The scope was advanced to a normal major papilla in the descending duodenum without detailed examination of the pharynx, larynx and associated structures, and upper GI tract. The upper GI tract was grossly normal. The bile duct was deeply cannulated with the short-nosed traction sphincterotome. Contrast was injected. I personally interpreted the bile duct images. There was brisk flow of contrast through the ducts. Image quality was excellent. Contrast extended to the entire biliary tree. Opacification of the entire opacified area and main bile duct was successful. The maximum diameter of the ducts was 8 mm. Placement of a long 0.025 inch Jagwire into the biliary tree was attempted. This passed successfully. A 5 mm biliary sphincterotomy was made with a braided traction (standard) sphincterotome using ERBE electrocautery. There was no post-sphincterotomy bleeding. The biliary tree was swept with a 15 mm balloon starting at the bifurcation. Debris was swept from the duct. One stent was removed from the biliary tree using a snare and sent for cytology. The stent was found to be occluded via the water column test. Biopsies were taken in the ampulla through the esophagogastroduodenoscope with the cold forceps for histology. Impression: - Biopsies were taken with a cold forceps for histology in the ampulla. - A biliary sphincterotomy was performed. - The biliary tree was swept and debris was found. - One stent was removed from the biliary tree. Procedure Code(s): --- Professional --- 48747, Endoscopic retrograde cholangiopancreatography (ERCP); with removal of foreign body(s) or stent(s) from biliary/pancreatic duct(s) 13193, Endoscopic retrograde cholangiopancreatography (ERCP); with removal of calculi/debris from biliary/pancreatic duct(s) 07439, Endoscopic retrograde cholangiopancreatography (ERCP); with sphincterotomy/papillotomy 12495, Esophagogastroduodenoscopy, flexible, transoral; with biopsy, single or multiple 93838, 26, Endoscopic catheterization of the biliary ductal system, radiological supervision and interpretation CPT copyright 2021 [employer]. All rights reserved. The codes documented in this report are preliminary and upon auditing coder review may be revised to meet current compliance requirements. Bhavesh Shetty DO 04/24/2023 12:44:14 PM This report has been signed electronically. Number of Addenda: 0 Note Initiated On: 04/24/2023 11:37 AM
[2023-04-24 12:45] VITALS: BP 133/91; BP 91/70; PULSE 56; RESP 16; TEMP 36.2; O2SAT 95
--- NOTE | 2023-04-24 12:45 | OP.CCLET_ITS ---
04/24/2023 Scout Goodson [address] [place] [address] Re : ERCP procedure for Vahe Rock Dear Dr. Godoson This procedure was performed on Monday, April 24, 2023. My impressions and recommendations are as follows: Impressions : - Biopsies were taken with a cold forceps for histology in the ampulla. - A biliary sphincterotomy was performed. - The biliary tree was swept and debris was found. - One stent was removed from the biliary tree. Recommendations : My findings are described in the full procedure note, which is enclosed. If I can be of further assistance, please feel free to contact me at . Sincerely, Bhavesh Shetty, 04/24/2023 12:44:14 PM This report has been signed electronically.
[2023-04-24 12:50] VITALS: BP 133/91; BP 91/70; PULSE 57; RESP 16; O2SAT 94
[2023-04-24 12:55] VITALS: BP 133/91; BP 95/74; PULSE 53; RESP 16; O2SAT 94
[2023-04-24 13:00] VITALS: BP 133/91; BP 95/70; PULSE 47; RESP 16; TEMP 36.2; O2SAT 94
[2023-04-24 13:45] VITALS: BP 133/91
== END 2023-04-24 13:45 | disposition home or self-care (01) ==
LOC: EN 10:37 → AC 10:54
PROVIDERS: PCP Family Medicine; Referring Provider Family Medicine; Visit Provider Internal Medicine Gastroenterology
PROC: (CPT 43260; principal; 2023-04-24 11:40)
DX: D13.5 Benign neoplasm of extrahepatic bile ducts (principal); K85.90 Acute pancreatitis without necrosis or infection, unspecified
CPT/HCPCS: 43262; 43239; 43275; 43264; 74328; 76000; 88108; 88304; 88305; 88313; 93005; J7120

== ENCOUNTER → 2023-07-25 | Outpatient (CLI) | payer MEDICARE, OTHER, SELFPAY ==
[2023-07-25 10:23] LABS: Absolute Neutrophil Count 1.9 X10^3/uL (2.0-7.7); Basophil# 0.07 X10^3/uL; Basophil% 1.6 % (0-1); Eosinophil# 0.16 X10^3/uL; Eosinophils% 3.7 % (0-5); Hematocrit 42.7 % (40-54); Hemoglobin 13.8 g/dL (13.0-16.5); Lymphocyte % 41.4 % (19-41); Mean Corp Hgb Conc 32.3 g/dL (32-36); Mean Corpuscular Hgb 29.8 pg (27.0-32.0); Mean Corpuscular Volume 92.2 fL (80-94); Mean Platelet Vol. 10.6 fl (6.2-12.0); Monocyte# 0.36 X10^3/uL; Monocyte% 8.3 % (0-10); NRBC Flagged by Analyzer 0 % (0-5); Neutrophil # 1.93 X10^3/uL (2.7-7.7); Neutrophil % 44.3 % (47-70); Platelet Count 262 K/mm3 (150-450); RBC Distribution Width CV 13.6 % (11.6-14.6); RBC Distribution Width SD 46.2 fl (35.1-43.9); Red Blood Count 4.63 M/mm3 (4.6-6.2); White Blood Count 4.4 K/mm3 (4.4-11.0)
[2023-07-25 10:48] LABS: AST(SGOT) 17 U/L (15-37); Alanine Aminotransfer ALT/SGPT 23 U/L (16-61); Albumin, Serum 3.5 g/dL (3.2-5.0); Alkaline Phosphatase 61 U/L (45-117); Anion Gap 2 (5-15); BUN 24 mg/dL (7-18); BUN/Creat Ratio 21.4 RATIO (10-20); Calcium,Total 8.5 mg/dL (8.5-10.1); Chloride 110 mmol/L (98-107); Creatinine, Serum 1.12 mg/dL (0.70-1.30); EST Glomerular Filtration Rate 69 mL/min (>60); Est Glom Filt Rate - Afr Amer 84 mL/min (>60); Globulin 3.5 g/dL (2.2-4.2); Glucose 58 mg/dL (74-106); Potassium 4.3 mmol/L (3.5-5.1); Sodium Level 140 mmol/L (136-145); T4 Free Direct 1.01 ng/dL (0.76-1.46)
[2023-07-26 18:07] LABS: Anti-Thyroglobulin AB < 1.0 IU/mL (0.0-0.9); Thyroglobulin, Serum Qt. 2.3 ng/mL (1.4-29.2)
== END | disposition home or self-care (01) ==
LOC: MFPLAB 08:43
PROVIDERS: PCP Family Medicine; Visit Provider Family Medicine
DX: E89.0 Postprocedural hypothyroidism (principal); C73 Malignant neoplasm of thyroid gland
CPT/HCPCS: 36415; 80053; 84432; 84439; 84443; 85025; 86800

== ENCOUNTER 2024-05-07 09:54 | Day surgery (SDC) | payer MEDICARE, OTHER, SELFPAY ==
[2024-05-07] VITALS (7 sets, daily range): BP systolic 83–130; BP diastolic 68–85; PULSE 53–74; RESP 16; TEMP 36.1–36.3; O2SAT 93–99; BMI 27.5
--- NOTE | 2024-05-07 | MISC_PTH ---
PATIENT: TYLER AYALA LOC: EN U#:[id number] AGE/SX: 69/M ROOM: RE05/07/[address]: Dr. Bhavesh Shetty DO : 1955 BED: DIS: 05/07/2024 SPEC #: [id number] RECD: 05/07/24 10:51 STATUS: VINICIUS REAura #: [id number] EUSEBIA: 05/07/24 00:[address]: Bhavesh Shetty DEPT: SURGICAL PATHOLOGY RECD BY: Gilberto Solorzano ENTERED: 05/08/24 10:52 SP TYPE: [facility]: Dr. Scout Goodson MD Tissues: Bile duct, NOS Procedures: Surgery Specimen Level III HEADER OPERATION: Pancreatic stent, brushings PRE-OP DIAGNOSIS: Acute pancreatitis, unspecified complication status, unspecified pancreatitis type TISSUE SUBMITTED: Ampula lesion MICROSCOPIC DIAGNOSIS Ampula lesion, biopsy: Fragments of small intestinal mucosa with marked cautery artifacts. Negative for malignancy. KATERINA/ 05/11/2024 COMMENT Please make reference to additional specimen [id number] bile duct brushings. Clinical correlation and appropriate follow up are necessary. Please also make reference to previous specimen [id number], ampulla mass, biopsy with diagnosis of fragments of tubular adenoma with focal mucosal ulceration and associated acute and chronic inflammation. MICROSCOPIC DESCRIPTION Slides are reviewed. GROSS DESCRIPTION Received in fixative is one container labeled with the patient's name and designated Ampula lesion. The specimen consists of multiple irregular fragments of light hoffmann soft tissue that in aggregate measure 0.6 x 0.4 x 0.2 cm. The specimen is totally submitted in one cassette. 05/08/2024 TC:5 CPT:77079
--- NOTE | 2024-05-07 10:08 | EKG12_ITS ---
Test Reason : PRE OP Blood Pressure : / mmHG Vent. Rate : 052 BPM Atrial Rate : 052 BPM P-R Int : 170 ms QRS Dur : 096 ms QT Int : 428 ms P-R-T Axes : 032 -16 -13 degrees QTc Int : 398 ms Sinus bradycardia Otherwise normal ECG No previous ECGs available Confirmed by Javed Hood ([id number]), rewrite editor TRICIA SOLIS ([id number]) on 05/11/2024 1:22:27 PM Referred By: Scout Goodson Confirmed By:Javed Hood
[2024-05-07] MEDS: Lactated Ringers 1,000 ML 15 ML IV (10:38)
--- NOTE | 2024-05-07 10:48 | PCM.PRE.AN2 ---
ASA Classification* ASA Classification ASA Classification: 3 Assessment & Plan Anesthesia* Anesthesia Assessment Anesthesia Assessment: Discussed sedation and/or anesthesia options, risks, benefits, and alternatives with patient/parents/legal guardian/POA. Questions invited. The patient/parents/legal guardian/POA seems to understand and agrees to proceed with anesthesia plan. Reviewed the physical assessment, medical history, allergy history and patient home medications list prior to surgery/procedure/anesthetic and documented any changes. Performed airway and anesthesia risk assessments. Anesthesia Type Anesthesia Type: General (see written pre anesthesia record for full assessment) Anesthesia Focused Assessment* Temperature: 97 F Pulse Rate: 53 Blood Pressure: 130/85 Respiratory Rate: 16 Pulse Ox: 97 Airway Assessment Mouth opens: >3 cm Mallampati Score: II Focused Labs Anesthesia Preop lab: CBC WBC 4.4 K/mm3 (4.4-11.0) 07/25/23 08:43 RBC 4.63 M/mm3 (4.6-6.2) 07/25/23 08:43 Hgb 13.8 g/dL (13.0-16.5) 07/25/23 08:43 Hct 42.7 % (40-54) 07/25/23 08:43 Plt Count 262 K/mm3 (150-450) 07/25/23 08:43 CHEMISTRY Potassium 4.3 mmol/L (3.5-5.1) 07/25/23 08:43 Sodium 140 mmol/L (136-145) 07/25/23 08:43 BUN 24 mg/dL (7-18) H 07/25/23 08:43 Creatinine 1.12 mg/dL (0.70-1.30) 07/25/23 08:43 Glucose 58 mg/dL (74-106) L 07/25/23 08:43 TSH 19.00 uIU/mL (0.358-3.74) H 07/25/23 08:43 COAG Pre-Assessment Diagnosis/Proposed Procedure Planned Operative Procedure(s): ERCP Anesthesia History 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 When Was Last Pacemaker Check QUESTION #4 FULL TEXT: You/Your Family Experience fever (hyperthermia) with Anesthesia Last Oral Intake Last Oral intake: Last Oral Intake NPO since 03:00 05/07/24 10:19 Meds taken in AM with sips of Yes 05/07/24 10:19 water? 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 Female No 05/05/24 10:26 HX of Motion Sickness No 05/05/24 10:26 HX of N/V After Surgery No 05/05/24 10:26 Non-Smoker Yes 05/05/24 10:26 Duration of Surgery greater No 05/05/24 10:26 than 60 minutes Number of Risk Factors 1 05/05/24 10:26 PONV Score Low Risk 05/05/24 10:26 Height & Weight Height & Weight: Anesthesia: Height & Weight Height 5 ft 10 in 05/07/24 10:19 Weight: 87 kg 05/07/24 10:19 Body Mass Index (BMI) 27.5 05/07/24 10:19 Respiratory Assessment Respiratory Assessment - manager of corporate communications: Respiratory Tract Infection Hx - manager of corporate communications Hx Respiratory Tract Infection No 05/05/24 10:26 STOP Sleep Apnea STOP Sleep Apnea - manager of corporate communications: STOP Sleep Apnea - manager of corporate communications Hx Hypertension No 05/05/24 10:26 Hx Sleep Apnea No 05/05/24 10:26 CPAP BIPAP Do you snore loudly (louder No 05/05/24 10:26 than talking or can be heard Do you often feel tired/ No 05/05/24 10:26 fatigued/ sleepy during daytime? Has anyone observed you stop No 05/05/24 10:26 breathing during sleep? STOP Results Negative 05/05/24 10:26 QUESTION #5 FULL TEXT : Do you snore loudly (louder than talking or can be heard through closed doors)? 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 Specify any problems Hx of Preganancy in last 3 N/A 05/05/24 10:26 Months Nurse Filling Out Transfusion VCHRISTIN 05/05/24 10:26 & Questions: Date: 05/05/24 05/05/24 10:26 Time: 10:26 05/05/24 10:26 Patient unable to answer at this time (ie. confused, unrespo /Reproduction History /Reproductive History - manager of corporate communications: /Reproductive Hx- manager of corporate communications Hx Now No 05/05/24 10:26 Gestational Age (in weeks): EDC: Hx Hx Para Hx Section SAB No 05/05/24 10:26 Active Medications Active Medications: Current Medications Generic Name Dose Route Start Last Admin Trade Name Freq PRN Reason Stop Dose Admin Lactated Ringer's 1,000 mls @ 15 mls/hr 05/07/24 10:15 05/07/24 10:38 IV 15 mls/hr .Q48H BIRAN Administration PFSH Medical History Pancreatitis Cancer Hiatal hernia with GERD Ampulla of Vater mass Wears glasses Non-smoker Arthritis Home Medications ?Medication ?Instructions ?Recorded ?Last Taken ?Type melatonin 5 mg capsule 5 mg PO QHS PRN Sleep 06/12/22 Unknown History levothyroxine 200 mcg capsule 200 mcg PO DAILY 04/07/24 05/07/24 History Allergy/AdvReac Type Severity Reaction Status Date / Time No Known Allergies Allergy Verified 05/07/24 10:15 Family History Sister Breast cancer Thyroid disorder Mother Heart disease Hypertension Thyroid disorder Surgical History Hx of total thyroidectomy History of ERCP Hx of endoscopic retrograde cholangiopancreatography S/P thyroid biopsy (~02/2023) History of microdiscectomy History of hernia repair History of Achilles tendon repair H/O shoulder replacement Social History Smoking Status: Never smoker alcohol intake: current details: 1 beer per day substance use type: does not use Review of Systems (Anesthesia) ROS Narrative System reviewed and no additional complaints, except as documented.
--- NOTE | 2024-05-07 11:50 | RAD_ITS ---
STUDY: ERCP. REASON FOR EXAM: Male, 69 years old. PAIN FLUOROSCOPY TIME (if supplied): ( 49.3 seconds ) minutes/seconds. 9.14 mGy. 6 fluoroscopic images were submitted. TECHNIQUE: ERCP was performed by the changer fixer. COMPARISON: None. FINDINGS: Fluoroscopic imaging was provided. RAD/ERCP Biliary/Pancreas IMPRESSION: Fluoroscopic services provided for ERCP. Electronically Signed: Paco Guo MD at 11:49 EDT ,
--- NOTE | 2024-05-07 12:34 | OP.ERCP_ITS ---
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 Refer to note in patient chart for documentation of history and physical. Patient has symptoms. Complications: No immediate complications. Procedure: Pre-Anesthesia Assessment: - Prior to the procedure, a History and Physical was performed, and patient medications and allergies were reviewed. The patient is competent. The risks and benefits of the procedure and the sedation options and risks were discussed with the patient. All questions were answered and informed consent was obtained. Patient identification and proposed procedure were verified by the physician in the pre-procedure area. Mental Status Examination: alert and oriented. Airway Examination: normal oropharyngeal airway and neck mobility. Respiratory Examination: clear to auscultation. CV Examination: normal. Prophylactic Antibiotics: The patient does not require prophylactic antibiotics. Prior Anticoagulants: The patient has taken no anticoagulant or antiplatelet agents except for NSAID medication. ASA Grade Assessment: II - A patient with mild systemic disease. After reviewing the risks and benefits, the patient was deemed in satisfactory condition to undergo the procedure. The anesthesia plan was to use general anesthesia. Immediately prior to administration of medications, the patient was re-assessed for adequacy to receive sedatives. The heart rate, respiratory rate, oxygen saturations, blood pressure, adequacy of pulmonary ventilation, and response to care were monitored throughout the procedure. The physical status of the patient was re-assessed after the procedure. After obtaining informed consent, the scope was passed under direct vision. Throughout the procedure, the patient's blood pressure, pulse, and oxygen saturations were monitored continuously. The Duodenoscope was introduced through the mouth, and advanced to the duodenum and used to inject contrast into the bile duct and ventral pancreatic duct. The ERCP was accomplished without difficulty. The patient tolerated the procedure well. Scope In: 12:04:39 PM Scope Out: 12:21:52 PM Total Procedure Duration Time 0 hours 17 minutes 13 seconds Findings: The smoking pipe coater film was normal. The esophagus was successfully intubated under direct vision. The scope was advanced to a normal major papilla in the descending duodenum without detailed examination of the pharynx, larynx and associated structures, and upper GI tract. The upper GI tract was grossly normal. The ventral pancreatic duct was deeply cannulated with the short-nosed traction sphincterotome. Contrast was injected. Opacification of the entire pancreatic ductal system was successful. The maximum diameter of the ducts was 2 mm. The entire opacified area was normal. A long 0.021 inch Jagwire was passed into the ventral pancreatic duct. A 5 mm ventral pancreatic sphincterotomy was made with a traction (standard) sphincterotome using ERBE electrocautery. There was no post-sphincterotomy bleeding. To find object(s) the ventral pancreatic duct was swept with a 6 mm balloon starting at the pancreatic duct in the body of the pancreas. Nothing was found. One 4 Fr by 5 cm temporary stent with a single internal pigtail was placed 5 cm into the ventral pancreatic duct. Clear fluid flowed through the stent. The stent was in good position. A long 0.025 inch Jagwire was passed into the biliary tree. The short-nosed traction sphincterotome was passed over the guidewire and the bile duct was then deeply cannulated. Contrast was injected. Opacification of the entire opacified area and left and right hepatic ducts and all intrahepatic branches was successful. The maximum diameter of the ducts was 8 mm. The entire opacified area was normal. A 5 mm biliary sphincterotomy was made with a traction (standard) sphincterotome using ERBE electrocautery. There was no post-sphincterotomy bleeding. The scope was passed under direct vision through the upper GI tract. A 7 mm sessile polyp was found in the jejunum. The polyp was removed with a hot snare. The polypectomy was performed through the ERCP scope. Resection and retrieval were complete. Impression: - Jejunal polyp(s). - Polypectomy was performed. - A pancreatic sphincterotomy was performed. - The ventral pancreatic duct was swept and nothing was found. - One temporary stent was placed into the ventral pancreatic duct. - A biliary sphincterotomy was performed. Procedure Code(s): --- Professional --- 69581, Endoscopic retrograde cholangiopancreatography (ERCP); with placement of endoscopic stent into biliary or pancreatic duct, including pre- and post-dilation and guide wire passage, when performed, including sphincterotomy, when performed, each stent 05769, 59,51, Endoscopic retrograde cholangiopancreatography (ERCP); with sphincterotomy/papillotomy 76089, Esophagogastroduodenoscopy, flexible, transoral; with removal of tumor(s), polyp(s), or other lesion(s) by snare technique CPT copyright 2021 [employer]. All rights reserved. The codes documented in this report are preliminary and upon care director rn review may be revised to meet current compliance requirements. Bhavesh Shetty DO 05/07/2024 12:34:12 PM This report has been signed electronically. Number of Addenda: 0 Note Initiated On: 05/07/2024 11:31 AM
--- NOTE | 2024-05-07 12:35 | OP.CCLET_ITS ---
05/07/2024 Scout Goodson [address] [place] [address] Re : ERCP procedure for Vahe Rock Dear Dr. Goodson This procedure was performed on April. My impressions and recommendations are as follows: Impressions : - Jejunal polyp(s). - Polypectomy was performed. - A pancreatic sphincterotomy was performed. - The ventral pancreatic duct was swept and nothing was found. - One temporary stent was placed into the ventral pancreatic duct. - A biliary sphincterotomy was performed. Recommendations : My findings are described in the full procedure note, which is enclosed. If I can be of further assistance, please feel free to contact me at . Sincerely, Bhavesh Shetty, 05/07/2024 12:34:12 PM This report has been signed electronically.
--- NOTE | 2024-05-07 12:42 | PCM.POST.ANE ---
Anesthesia: Postop Eval I Current Vital Signs Temperature: 97.2 F Pulse Rate: 74 Blood Pressure: 101/78 Respiratory Rate: 16 Pulse Ox: 96 Oxygen Delivery Method: Room Air Assessment Airway patent: Yes Spontaneous unlabored respirations: Yes Mental status: Asleep nausea: No Vomiting: No Anesthesia Complication: No Fluid Hydration Crystalloid volume administer (ml): 800 Total IV fluid infused: 800 Progress Note Anesthesia document: Postop Eval 1 completed: Yes
--- NOTE | 2024-05-07 13:14 | PCM.POSTANE2 ---
Anesthesia Postop Eval I Sum Postop Eval Completion status Anesthesia document: Postop Eval 1 completed: Yes Anesthesia Postop Eval I Summary Anesthesia Postop Eval I Summary: Anesthesia Postop Eval I: Assessment Summary Airway patent Yes 05/07/24 12:43 [email or web address] Spontaneous unlabored Yes 05/07/24 12:43 [email or web address] respirations Mental status Asleep 05/07/24 12:43 [email or web address] nausea No 05/07/24 12:43 [email or web address] Vomiting No 05/07/24 12:43 [email or web address] Anesthesia Postop Eval I: Fluid Summary Crystalloid volume administer 800 05/07/24 12:43 [email or web address] (ml) Colloids volume administered ( ml) Blood Product volume administered (ml) Total IV fluid infused 800 05/07/24 12:43 [email or web address] Anesthesia Postop Eval I: Summary Notes Anesthesia Complication No 05/07/24 12:43 [email or web address] Anesthesia Complication Comment: Post-operative progress note Anesthesia: Postop Eval II Evaluation Mental status: Awake Pain Level: 0 nausea: No Vomiting: No
--- NOTE | 2024-05-08 | FLU_PTH ---
PATIENT: TYLER AYALA LOC: EN U#:[id number] AGE/SX: 69/M ROOM: RE05/07/[address]: Dr. Bhavesh Shetty DO : 1955 BED: DIS: 05/07/2024 SPEC #: [id number] RECD: 05/08/24 10:50 STATUS: VINICIUS REQ #: [id number] EUSEBIA: 05/08/24 00:[address]: Bhavesh Shetty DEPT: CYTOLOGY RECD BY: Gilberto Solorzano ENTERED: 05/08/24 10:51 SP TYPE: Fluid OTHR DR: Dr. Scout Goodson MD Tissues: A - Bile duct, NOS B - Biliary tract, NOS Procedures: Special Stain Group II Surgery Specimen Level III Surgery Specimen Level IV Cytospin Fluid HEADER OPERATION: Pancreatic stent, brushings PRE-OP DIAGNOSIS: Acute pancreatitis, unspecified complication status, unspecified pancreatitis type TISSUE SUBMITTED: A- Bile duct brushings, B- Bile duct brushings brush tip DIAGNOSIS CYTOLOGY A. Bile duct brushings (smears): Negative for malignant cells. B. Bile duct brushings brush tip fluid (cytospin and cellblock): Negative for malignant cells. 05/11/2024 COMMENT Please make reference to additional specimen [id number]. Clinical correlation and appropriate follow up are necessary. CYTOLOGY STUDY Slides are reviewed. CYTOLOGY GROSS A. Received are 3 smears labeled with the patient's name and designated per the requisition as Bile duct brushings. Submitted for staining. B. Received is 0.5 ml of light-yellow fluid labeled with the patient's name and and designated per the requisition as Bile duct brushings brush tip. Submitted for cytology preparation including cell block. 05/08/2024 TC:5 CPT: 08835,75767,96768
--- NOTE | 2024-05-08 17:09 | HP.PCM_ITS ---
History and Physical Date of Admission: 05/08/24 TYLER AYALA, is a 69 M who presents to the office today for follow up. Biochemical workup?CBC, CMP, UA without pertinent abnormality.? Lipase L72?US RUQ?BOSNIAK type II right renal cyst. Exam otherwise without acute/chronic abnormality.?CT abd/pel?large exophytic simple right renal cyst; diverticulosis without inflammatory changes; enlarged prostate.? ? [facility] Dr. Stanton seen 06.12.22. 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 EGD and colonoscopy 08.02.22?EGD found nodular mucosa of ampulla with chronic inflammation and focal adenomatous changes; gastritis; gastric polyp, without path changes; esophageal polyps, benign; small hiatal hernia; GE junction biopsy with focal goblet cell metaplasia and inflammation. H.Pylori negative.? Colonoscopy found diverticulosis; two 5&8mm hyperplastic polyps in sigmoid colon.? ? *BGI established 10.25.22 with referral from [facility] where he established following [facility] ED presentation. PPI has been helpful and has had a resolution of previously noted symptoms. ? Contact 11.09.22 reporting he was having SE and stopped PPI with resolution of symptoms.? 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 Cytology without malignancy.? [facility] hospitalization 12.05.22-12.08.22. ED presentation with generalized upper abdominal pain starting the prior evening with severity worsening with N/V. Workup concerning for acute pancreatitis and he was admitted. GI consulted same day for management of acute pancreatitis with NPO, pain management, IVF, and reglan.?Biochemical?Lipase >5000? CT abd/pel 12.05.22?hypoattenuating hepatic lesions, stable; trace gas in gall bladder; CBD stent in place; peripancreatic fat stranding and moderate fluid extending into retroperitoneum with duct dilation up to 5mm in head/neck; right renal cystic structure, stable; colonic diverticulosis; prostatomegaly.?? Contact 12.18.22 generally feeling unwell.?Biochemical?CBC, amylase, lipase, CMP (mild dehydration) without pertinent abnormality.? CRP 3.9? Contact 12.20.22 with results; feels that it is more of an indigestion that her is concerned about, increase PPI to 40mg BID. Possible CT scan to monitor for development of pseudocyst.?Biochemical?CBC, CMP, amylase, lipase without pertinent abnormality. Some mild dehydration.? CRP H3.56.? [facility] established diagnosing thyroid cancer 03.18.23.? GI outpatient:?ERCP 04.24.23?biliary sphincterotomy; one stent removed. Cytology without malignancy; TA with acute/chronic inflammation.? ?06-07-23 OV 04.07.24 pt reports increased fatigue. 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 ROS Const Constitutional: Positive for fatigue; No fever(s) or weight change ENT ENT: No difficulty swallowing Gastro GI: Positive for change in bowel habits; No abdominal pain, belching, bloating, change in stool character, coffee ground emesis, constipation, cramping, diarrhea, heartburn, difficulty swallowing, feeling full early, excessive flatus, incontinent of stools, Vomiting blood/hematemesis, Blood in stool, loose stools, Black,tarry stools, nausea/dyspepsia, pain with swallowing, vomiting or other Musc Musculoskeletal: Positive for back pain, stiffness and Arthritis; No joint pain Skin Skin: No yellowing of the eye or itchy eyes Psych Psychiatric: No anxiety and No depression Endo Endocrine: Positive for fatigue; No weight change Aller/Imm Allergy/Immunologic: No itchy eyes Edson/Lymp Hematologic/Lymphatic: No easy bleeding or easy bruising Exam Const General: cooperative and healthy appearing [facility] Head: normocephalic and atraumatic Ears: hearing grossly normal bilaterally Nose: external nose normal Face and sinus: normal facial exam and face symmetric Mouth: oral mucosae normal Throat: posterior oropharynx normal Eyes General: appearance normal, both eyes and all related structures Resp Effort & Inspection: normal respiratory effort Auscultation: Bilateral: Clear to Auscultation Cardio Palpation: normal PMI Rate: regular rate Rhythm: regular rhythm Skin General: no rashes or lesions noted Neuro General: patient alert and CN's II-XI intact bilaterally Psych Appearance: grossly normal Mental Status: mental status grossly normal Assessment and Plan Assessment and Plan (1) Pancreatitis: Status: Acute Qualifiers: Chronicity: acute Pancreatitis type: unspecified pancreatitis type Acute pancreatitis complication: unspecified Qualified Code(s): K85.90 - Acute pancreatitis without necrosis or infection, unspecified Plan: Acute pancreatitis secondary to ERCP after removing ampulla Vater mass and having a stent placed. He is doing very well without any complications from his episode of acute pancreatitis that we know of. He is tolerating a diet. His CRP had gone from 168 down to less than 2.9. He is able to eat any foods he wants and is back to his regular activity. We will remove the stent in approximately 4 to 5 months. 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 We will rebiopsy that area when he gets his stent pulled. I have examined the patient and the H&P has been reviewed. There are no clinical changes since date of exam.
== END 2024-05-07 13:48 | disposition home or self-care (01) ==
LOC: EN 09:55 → AC 10:05
PROVIDERS: PCP Family Medicine; Referring Provider Family Medicine; Visit Provider Internal Medicine Gastroenterology
PROC: (CPT 43260; principal; 2024-05-07 10:40)
DX: Z46.59 Encounter for fitting and adjustment of other gastrointestinal appliance and device (principal); K83.1 Obstruction of bile duct; K85.90 Acute pancreatitis without necrosis or infection, unspecified; K31.7 Polyp of stomach and duodenum; Z87.19 Personal history of other diseases of the digestive system; Z79.890 Hormone replacement therapy; K21.9 Gastro-esophageal reflux disease without esophagitis; E89.0 Postprocedural hypothyroidism
CPT/HCPCS: 43274; 43278; 00732; 74330; 76000; 88108; 88304; 88305; 88313; 93005; J7120; J2405

== ENCOUNTER → 2024-05-08 | Outpatient (CLI) | payer MEDICARE, OTHER, SELFPAY ==
[2024-05-08 17:43] LABS: Absolute Lymphocyte Count 2.86 X10^3/uL (0.83-4.51); Absolute Neutrophil Count 4.5 X10^3/uL (2.0-7.7); Basophil# 0.04 X10^3/uL; Basophil% 0.5 % (0-1); Eosinophil# 0.04 X10^3/uL; Eosinophils% 0.5 % (0-5); Hematocrit 37.9 % (40-54); Hemoglobin 12.5 g/dL (13.0-16.5); Lymphocyte # 2.86 X10^3/ul (0.83-4.51); Mean Corpuscular Hgb 30.3 pg (27.0-32.0); Mean Corpuscular Volume 91.8 fL (80-94); Mean Platelet Vol. 10.4 fl (6.2-12.0); Monocyte% 6.3 % (0-10); NRBC Flagged by Analyzer 0 % (0-5); Neutrophil # 4.46 X10^3/uL (2.7-7.7); Neutrophil % 56.1 % (47-70); Platelet Count 231 K/mm3 (150-450); RBC Distribution Width CV 13.3 % (11.6-14.6); Red Blood Count 4.13 M/mm3 (4.6-6.2)
[2024-05-08 18:01] LABS: ALB/GLOB Ratio 1.3 RATIO (0.9-2.4); AST(SGOT) 18 U/L (15-37); Alanine Aminotransfer ALT/SGPT 18 U/L (16-61); Albumin, Serum 3.7 g/dL (3.2-5.0); Alkaline Phosphatase 51 U/L (45-117); Anion Gap 7 (5-15); BUN 18 mg/dL (7-18); BUN/Creat Ratio 16.1 RATIO (10-20); Chloride 111 mmol/L (98-107); Creatinine, Serum 1.12 mg/dL (0.70-1.30); EST Glomerular Filtration Rate 69 mL/min (>60); Est Glom Filt Rate - Afr Amer 84 mL/min (>60); Globulin 2.9 g/dL (2.2-4.2); Glucose 91 mg/dL (74-106); Potassium 3.4 mmol/L (3.5-5.1); Protein, Total 6.6 g/dL (6.4-8.2); Sodium Level 142 mmol/L (136-145)
[2024-05-08 18:08] LABS: Vitamin B12 581 pg/mL (211-911)
[2024-05-12 09:20] LABS: Ferritin 83 ng/mL (26-388); Iron 58 ug/dL (65-175); Iron Binding Capacity,Total 337 ug/dL (250-450); PERCENT IRON SATURATION 17.2 % (15.0-55.0)
== END | disposition home or self-care (01) ==
LOC: MFPLAB 16:59
PROVIDERS: PCP Family Medicine; Visit Provider Family Medicine
DX: D64.9 Anemia, unspecified (principal); R53.83 Other fatigue
CPT/HCPCS: 36415; 80053; 82306; 82607; 82728; 83540; 83550; 85025

== ENCOUNTER → 2024-05-25 | Outpatient (CLI) | payer MEDICARE, OTHER, SELFPAY ==
[2024-05-25 10:24] LABS: Absolute Lymphocyte Count 1.72 X10^3/uL (0.83-4.51); Absolute Neutrophil Count 1.9 X10^3/uL (2.0-7.7); Basophil# 0.04 X10^3/uL; Eosinophil# 0.14 X10^3/uL; Eosinophils% 3.3 % (0-5); Hematocrit 40.3 % (40-54); Hemoglobin 13.1 g/dL (13.0-16.5); Lymphocyte # 1.72 X10^3/ul (0.83-4.51); Lymphocyte % 40.9 % (19-41); Mean Corp Hgb Conc 32.5 g/dL (32-36); Mean Corpuscular Hgb 30.2 pg (27.0-32.0); Mean Corpuscular Volume 92.9 fL (80-94); Mean Platelet Vol. 10.5 fl (6.2-12.0); Monocyte# 0.38 X10^3/uL; NRBC Flagged by Analyzer 0 % (0-5); Neutrophil # 1.92 X10^3/uL (2.7-7.7); Neutrophil % 45.6 % (47-70); Platelet Count 233 K/mm3 (150-450); RBC Distribution Width CV 13.2 % (11.6-14.6); RBC Distribution Width SD 44.8 fl (35.1-43.9); Red Blood Count 4.34 M/mm3 (4.6-6.2); White Blood Count 4.2 K/mm3 (4.4-11.0)
== END | disposition home or self-care (01) ==
PROVIDERS: PCP Family Medicine; Referring Provider Internal Medicine Gastroenterology; Visit Provider Internal Medicine Gastroenterology
DX: D64.9 Anemia, unspecified (principal)
CPT/HCPCS: 36415; 85025

== ENCOUNTER → 2024-06-19 | Outpatient (CLI) | payer MEDICARE, OTHER, SELFPAY ==
--- NOTE | 2024-06-19 10:07 | RAD_ITS ---
EXAM: XR ABDOMEN, 1 VIEW CLINICAL INDICATION: s/p biliary stent placement TECHNIQUE: Frontal supine view of the abdomen/pelvis. COMPARISON: CT abdomen and pelvis, 12/07/2022 FINDINGS: GASTROINTESTINAL TRACT: No significant abnormality. Non-obstructive. No bowel or stomach distention. ORGANS: Normal as visualized. No organomegaly. No abnormal calcifications. BONES/JOINTS: Degenerative changes in the axial and appendicular skeleton. SOFT TISSUES: No acute pathology. RAD/Abdomen Single View IMPRESSION: A biliary stent is not clearly visualized. No distinct evidence of acute pathology. Electronically Signed: Edward Araujo DO at 22:05 EDT ,
== END | disposition home or self-care (01) ==
LOC: RAD 10:04
PROVIDERS: PCP Family Medicine; Referring Provider Internal Medicine Gastroenterology; Visit Provider Internal Medicine Gastroenterology
DX: Z98.890 Other specified postprocedural states (principal)
CPT/HCPCS: 74018

== ENCOUNTER → 2024-07-22 | Outpatient (CLI) | payer MEDICARE, OTHER, SELFPAY ==
[2024-07-22 12:40] LABS: Absolute Lymphocyte Count 1.49 X10^3/uL (0.83-4.51); Absolute Neutrophil Count 2.5 X10^3/uL (2.0-7.7); Basophil# 0.07 X10^3/uL; Basophil% 1.5 % (0-1); Eosinophil# 0.09 X10^3/uL; Hematocrit 43.9 % (40-54); Hemoglobin 14.3 g/dL (13.0-16.5); Lymphocyte # 1.49 X10^3/ul (0.83-4.51); Lymphocyte % 32.9 % (19-41); Mean Corp Hgb Conc 32.6 g/dL (32-36); Mean Corpuscular Hgb 29.9 pg (27.0-32.0); Mean Corpuscular Volume 91.6 fL (80-94); Mean Platelet Vol. 11.2 fl (6.2-12.0); Monocyte% 8.8 % (0-10); NRBC Flagged by Analyzer 0 % (0-5); Neutrophil # 2.47 X10^3/uL (2.7-7.7); Neutrophil % 54.6 % (47-70); Platelet Count 229 K/mm3 (150-450); RBC Distribution Width CV 13.4 % (11.6-14.6); RBC Distribution Width SD 45.6 fl (35.1-43.9); Red Blood Count 4.79 M/mm3 (4.6-6.2); White Blood Count 4.5 K/mm3 (4.4-11.0)
[2024-07-22 12:45] LABS: PSA,Total - Annual Screen 4.24 ng/mL (0.00-4.00)
== END | disposition home or self-care (01) ==
LOC: MFPLAB 09:18
PROVIDERS: PCP Family Medicine; Referring Provider Family Medicine; Visit Provider Family Medicine
DX: Z12.5 Encounter for screening for malignant neoplasm of prostate (principal); D64.9 Anemia, unspecified
CPT/HCPCS: 36415; 84153; 85025; G0103

== ENCOUNTER → 2024-08-06 | Outpatient (CLI) | payer MEDICARE, OTHER, SELFPAY ==
--- NOTE | 2024-08-06 13:40 | ECHOD_ITS ---
Reason For Study: ASCENDING AORTIC ANEURYSM Procedure This was a 2D Doppler, Color Flow transthoracic echocardiogram. Exam performed in department. Left Ventricle Normal LV size. The left ventricular ejection fraction is 55 %. Stage 1 diastolic dysfunction. No regional wall motion abnormalities noted. Right Ventricle Normal RV size. Normal systolic function. Atria Normal left atrium. Normal right atrium. Mitral Valve Normal mitral valve. Tricuspid Valve Normal tricuspid valve. Mild tricuspid valve insufficiency. Pulmonary artery systolic pressure is 20 mmHg. Aortic Valve Trisinus/trileaflet aortic valve. Great Vessels Mildly dilated aortic root. The pulmonary artery is normal size. Inferior vena cava collapse with respiration. Pericardium/Pleural No pericardial effusion. MMode/2D Measurements & Calculations LVIDd: 4.4 cm IVSd: 1.4 cm LVOT diam: 2.3 cm LVIDs: 2.7 cm LVPWd: 0.99 cm LVOT area: 4.1 cm2 RVDd: 3.5 cm FS: 38.0 % asc Aorta Diam: 4.2 cm LAV(MOD-bp): 37.9 ml LVAd ap4: 27.0 cm2 LAV(MOD-bp) Indexed: 18.4 ml/m2 LVLd ap4: 7.1 cm LAV(MOD-sp2): 38.0 ml EDV(MOD-sp4): 84.6 ml LAV(MOD-sp4): 33.8 ml EDV(sp4-el): 87.7 ml LVAs ap4: 17.0 cm2 LVLs ap4: 6.0 cm ESV(MOD-sp4): 39.7 ml ESV(sp4-el): 40.4 ml EF(MOD-sp4): 53.0 % EF(sp4-el): 53.9 % SV(MOD-sp4): 44.8 ml SV(MOD-sp2): 40.4 ml LVAd ap2: 25.6 cm2 LVLd ap2: 7.5 cm SI(MOD-sp4): 21.7 ml/m2 SI(MOD-sp2): 19.6 ml/m2 EDV(MOD-sp2): 73.4 ml EDV(sp2-el): 74.5 ml LVAs ap2: 15.6 cm2 LVLs ap2: 6.2 cm ESV(MOD-sp2): 33.0 ml ESV(sp2-el): 33.1 ml EF(MOD-sp2): 55.0 % SV(sp4-el): 47.3 ml Ao sinus diam: 4.[address] Junction: 3.5 cm LA A4 area: 14.0 cm2 LA dimension(2D): 3.2 cm RA A4 area: 10.2 cm2 TAPSE: 1.5 cm Time Measurements MV dec time: 0.29 sec Doppler Measurements & Calculations MV E max jefferson: 43.5 cm/sec Lat Peak E' Jefferson: 5.8 cm/sec Med Peak E' Jefferson: 5.1 cm/sec MV A max jefferson: 72.4 cm/sec E/E' lat: 7.5 E/E' med: 8.5 MV E/A: 0.60 Ao V2 max: 110.1 cm/sec LV V1 max: 78.8 cm/sec MV dec slope: 150.6 cm/sec2 Ao max P.8 mmHg LV V1 max P.5 mmHg Ao V2 mean: 72.2 cm/sec LV V1 mean P.4 mmHg Ao mean P.5 mmHg LV V1 mean: 57.8 cm/sec Ao V2 VTI: 25.1 cm LV V1 VTI: 17.8 cm AV (velocity ratio): 0.71 MERLIN(I,D): 2.9 cm2 MERLIN(V,D): 3.0 cm2 SV(LVOT): 73.8 ml PA V2 max: 88.9 cm/sec TR max jefferson: 203.0 cm/sec TR max P.5 mmHg ECHO/Echo Complete Interpretation Summary Normal LV size. The left ventricular ejection fraction is 55 %. No regional wall motion abnormalities noted. Mildly dilated aortic root. Stage 1 diastolic dysfunction. Ordering Physician: Scout Goodson Referring Physician: Scout Goodson Performed By: Kavitha Negro RDCS
== END | disposition home or self-care (01) ==
LOC: CVS 13:38
PROVIDERS: PCP Family Medicine; Referring Provider Family Medicine; Visit Provider Family Medicine
DX: I71.21 Aneurysm of the ascending aorta, without rupture (principal)
CPT/HCPCS: 93306

== ENCOUNTER → 2025-02-03 | Outpatient (CLI) | payer MEDICARE, OTHER, SELFPAY ==
--- NOTE | 2025-02-03 13:18 | NEURO ---
NCS and/or EMG Patient Report Ordering Doctor: Kristian Bansal DATE OF SERVICE: 02/03/25 Vahe presents with complaints of numbness and tingling in the right hand. Electrodiagnostic findings: Right median motor nerve demonstrates prolonged latency with normal amplitude and conduction velocity. Right ulnar motor response is within normal limits. Prolonged right median F?wave. Prolonged right median sensory latency at the wrist. Normal right ulnar and radial sensory responses. Needle EMG testing was performed the right upper limb. All muscles tested showed no evidence of denervation with normal motor unit action potentials. Electrodiagnostic impression: This is an abnormal study of the right upper limb. 1. Electrodiagnostic findings suggestive of right-sided median mononeuropathy. This consistent with a mild right carpal tunnel syndrome. 2. There is no electrodiagnostic evidence for ulnar neuropathy, including cubital tunnel syndrome. Multi Select Codes Neurology Neurology Interp Codes: 44842-22 Musc test done w/n test comp (interp) and 03366-37 Nrv cndj tst 5-6 studies (interp)
== END | disposition home or self-care (01) ==
LOC: PSN 10:05
PROVIDERS: PCP Family Medicine; Referring Provider Student in an Organized Health Care Education/Training Program; Visit Provider Student in an Organized Health Care Education/Training Program
DX: R20.2 Paresthesia of skin (principal)
CPT/HCPCS: 95886; 95909

== ENCOUNTER → 2025-07-27 | Outpatient (CLI) | payer MEDICARE, OTHER, SELFPAY ==
[2025-07-27 18:03] LABS: PSA,Total - Annual Screen 4.69 ng/mL (0.02-4.00)
== END | disposition home or self-care (01) ==
LOC: MFPLAB 14:39
PROVIDERS: PCP Family Medicine
DX: Z12.5 Encounter for screening for malignant neoplasm of prostate (principal); Z13.1 Encounter for screening for diabetes mellitus
CPT/HCPCS: 36415; 83036; 84153; G0103